=== PATIENT | female | born 1950 | race Two or more races ===

== ENCOUNTER 2024-03-01 00:05 | Inpatient (IN) | payer MEDICARE, MEDICAID, BC ==
[2024-03-01] VITALS (11 sets, daily range): BP systolic 102–141; BP diastolic 33–57; PULSE 80–144; RESP 20; O2SAT 98–100
[~2024-03-01] VITALS: Ht 154.9 cm; Wt 89.4 kg
[~2024-03-01 00:05] MED LIST: AMLO1TAB22 PO; APIX2.5T PO; ATOR20TA PO; INSUINJ37 SC; PANT40T PO; SEVE800T20 PO
[2024-03-01] MEDS ORDERED: ETOMIDATE (2MG/ML) 20ML VIAL IV ONE (00:12)
[2024-03-01] MEDS ORDERED: ROCURONIUM 10MG/ML 10ML VIAL IV ONE (00:12)
[2024-03-01] MEDS ORDERED: PROPOFOL 100 ML IV ONE (00:14)
[2024-03-01] MEDS: ROCURONIUM 10MG/ML 10ML VIAL IV ONE (00:17)
[2024-03-01] MEDS: PROPOFOL 100 ML IV SCH (00:23)
[2024-03-01] MEDS: NOREPINEPHRINE 8 MG/250ML KIT 250 ML IV SCH (00:23)
[2024-03-01] MEDS ORDERED: MIDAZOLAM DRIP 50 mg/50mL 50 ML IV SCH (00:30)
[2024-03-01] MEDS: fentaNYL Drip 2500mCg/250mlNS 250 ML IV SCH (00:30)
--- NOTE | 2024-03-01 00:31 | ED.PDOC ---
SOB-HPI HPI Comments 74 year old female brought in by EMS presents to the ED with a chief complaint of shortness of breath onset yesterday around 08:00. Per EMS, patient lives with daughter, began experiencing nausea, vomiting, diarrhea, shortness of breath since yesterday. Upon EMS arrival, HR was in low 40s, GCS x 15. EMS gave patient Atropine and HR went to 75-80 bpm. EMS states patient became disassociated, altered in route, HR dropped to 20s and was being paced in the 60s, patient was being bagged. Upon ED arrival patient was altered and unresponsive. Past medical history of ESRD, DM, HTN, HLD. Time Seen by MD: 00:05 Reviewed notes: Medications, Allergies Information Source: Emergency Med Personnel Mode of Arrival: EMS Severity: Moderate Timing: Days Duration: Since onset Prehospital treatment: Oxygen Past Medical History PAST MEDICAL HISTORY: DM, ESRD, High Lipids, HTN Surgical History: Unknown PATHOLOGY LABORATORY TECHNOLOGIST History: Denies all PATHOLOGY LABORATORY TECHNOLOGIST Hx Family History Family History: Unknown Social History Smoker: Non-Smoker Alcohol: Denies ETOH Use Drugs: Denies Drug Use Lives In: Home Constitutional: reports: weakness; denies: chills, diaphoresis, fatigue, fever, malaise, sweats, others EENTM: denies: blurred vision, double vision, ear bleeding, ear discharge, ear drainage, ear pain, ear ringing, eye pain, eye redness, hearing loss, mouth pain, mouth swelling, nasal discharge, nose bleeding, nose congestion, nose pain, photophobia, tearing, throat pain, throat swelling, voice changes, others Respiratory: reports: shortness of breath; denies: cough, hemoptysis, orthopnea, SOB at rest, SOB with excertion, stridor, wheezing, others Cardiovascular: denies: chest pain, dizzy spells, diaphoresis, Dyspnea on exertion, edema, irregular heart beat, left arm pain, lightheadedness, palpitations, PND, syncope, others Gastrointestinal: reports: diarrhea, nausea, vomiting; denies: abdomen distended, abdominal pain, blood streaked bowels, constipated, dysphagia, difficulty swallowing, hematemesis, melena, poor appetite, poor fluid intake, rectal bleeding, rectal pain, others Genitourinary: denies: abnormal vagina bleeding, burning, dyspareunia, dysuria, flank pain, frequency, hematuria, incontinence, pain, , vagina discharge, urgency, others Neurological: denies: dizziness, fainting, headache, left sided numbness, left sided weakness, numbness, paresthesia, pre-existing deficit, right sided numbness, right sided weakness, seizure, speech problems, tingling, tremors, weakness, others Musculoskeletal: denies: back pain, gout, joint pain, joint swelling, muscle pain, muscle stiffness, neck pain, others Integumetry: denies: bruises, change in color, change in hair/nails, dryness, laceration, lesions, lumps, rash, wounds, others Allergic/Immunocompromised: denies: Difficulty Healing, Frequent Infections, Hives, Itching, others Hematologic/Lymphatic: denies: anemia, blood clots, easy bleeding, easy bruising, swollen glands, others Endocrine: denies: excessive hunger, excessive sweating, excessive thirst, excessive urination, flushing, intolerance to cold, intolerance to heat, unexplained weight gain, unexplained weight loss, others Psychiatric: denies: anxiety, bipolar disorder, depression, hopeless, panic disorder, schizophrenia, sleepless, suicidal, others All Other Systems: Reviewed and Negative Physical Exam General Appearance: Severe Distress HEENT: Normal ENT Inspection, Pharynx Normal, TMs Normal Neck: Full Range of Motion, Non-Tender, Normal, Normal Inspection Respiratory: Decreased Breath Sounds, Respiratory Distress Cardiovascular: No Edema, No JVD, No Murmur, No Gallop, Normal Peripheral Pulses, Regular Rate/Rhythm, Other (AV shunt left upper arm with good thrill) Breast Exam: Deferred Gastrointestinal: No Organomegaly, Non Tender, No Pulsatile Mass, Normal Bowel Sounds, Soft Genitalia: Deferred Pelvic: Deferred Rectal: Deferred Extremities: No calf tenderness, Normal capillary refill, Normal inspection, Normal range of motion, Non-tender, No pedal edema Musculoskeletal : Apperance: Normal Neurologic: Disoriented, Other (agitated, moving all extremities) Cerebellar Function: Normal Reflexes: Normal Skin: Dry, Normal Color, Warm Lymphatic: No Adenopathy Was a procedure done? Was a procedure done?: Yes Sedation Sedation?: Yes Informed consent obtained: No Sedation start time: 00:17 Sedation end time: 03:16 Sedation total time: patient is currently sedated. 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 of liquefaction and regasification helper: Attending Physician Indication: Inability to obtain IV Room prepared for procedure: Yes Foot Piece Assembler performed hand hygien: Yes Maximal sterile barrier precau: Mask/Eye shield, Sterile gown, Cap, Sterlie gloves, Large sterlie drape Skin Preparation: Chlorhexidine gluconate, Providine iodine Skin preparation completely dr: Yes Insertion site: Right, Supraclavicular Central line catheter type: Ijl-[id number]-dyg dialysis Number of lumens: 3 Central line exchanged over a: No Post Assessment: Chest X-Ray Informed consent obtained: No Intubation Indication: Altered Mental Status Prep: Preoxygenation Pretreated with: Atropine Medicated with: Other (Etomidate 10 mg, Rocuronium 80 mg) Intubation Approach: Orotracheal Intubation size: cm (24) Informed consent obtained: No Differential Dx Differential Diagnosis: Asthma, Bronchitis, CHF, COPD, Pneumonia, Pneumothorax, Pulmonary Embolism, Respiratory Distress, Other X-Ray, Labs, Meds, VS Vital Signs Date Time Temp Pulse Resp B/P (MAP) Pulse Ox O2 Delivery O2 Flow Rate FiO2 03/01/24 01:54 112 20 154/43 (80) 98 50 03/01/24 00:21 56 03/01/24 00:20 42 18 122/76 (91) 98 100 03/01/24 00:17 122/31 03/01/24 00:05 96.4 72 18 122/31 (61) 99 Lab Test 03/01/24 03:05 03/01/24 02:40 03/01/24 01:49 03/01/24 01:40 Range/Units Blood Gas Specimen Type Arterial Arterial Blood Gas Sample Site Right radial Right brachial Blood Gas Patient Temperature 37.0 37.0 Arterial Blood Date Drawn [id number] Arterial Blood pH 7.132 *L 7.097 *L 7.350-7.450 Arterial Blood Partial Pressure CO2 42.5 45.4 H 32.0-45.0 mmHg Arterial Blood Partial Pressure O2 137.1 H 384.0 *H 83.0-108.0 mmHg Arterial Blood HCO3 13.9 L 13.7 L 21.0-28.0 mmol/L Arterial Blood Oxygen Saturation 97.8 99.6 H 94.0-98.0 % Arterial Blood Base Excess -14.8 L -15.8 L -2.0-3.0 mmol/L Arterial Blood Oxyhemoglobin 96.5 98.4 H 94.0-98.0 % Arterial Blood Carboxyhemoglobin 0.8 0.9 0.5-1.5 % Arterial Blood Methemoglobin 0.5 0.3 0.0-1.5 % Niraj Test Modified Modified Blood Gas Total Hemoglobin 15.30 15.50 12.0-16.0 g/dL Blood Gas Set Respiration Rate 20.0 18.0 Blood Gas Modality Vent - ac Vent - ac FiO2 % 50.0 100.0 Blood Gas Tidal Volume 400.0 400.0 Blood Gas PEEP or CPAP 5.0 5.0 Blood Gas Critical Value Read Back Yes Yes Blood Gas Notified Whom ke Lucio md, md Blood Gas Notified Time [id number] Blood Gas Notified By [employer] Supervisor t [employer] Matthew, amaya Lactic Acid Level 8.2 *H 0.4-2.0 mmol/L Troponin I High Sensitivity 2876 *H </=34 ng/L Test 03/01/24 00:25 Range/Units White Blood Count 5.3 4.4-10.8 10^3/uL Red Blood Count 4.06 4.0-5.20 10^6/uL Hemoglobin 12.7 12.2-16.2 g/dL Hematocrit 42.0 36.0-46.0 % Mean Corpuscular Volume 103.4 H 80.0-100.0 fL Mean Corpuscular Hemoglobin 31.3 28.0-32.0 pg Mean Corpuscular Hemoglobin Concent 30.3 L 32.0-36.0 g/dL Red Cell Distribution Width 16.1 H 11.8-14.3 % Platelet Count 75 L 140-450 10^3/uL Mean Platelet Volume 11.4 H 6.9-10.8 fL Neutrophils (%) (Auto) 79.0 37.0-80.0 % Lymphocytes (%) (Auto) 14.1 10.0-50.0 % Monocytes (%) (Auto) 5.7 0.0-12.0 % Eosinophils (%) (Auto) 0.3 0.0-7.0 % Basophils (%) (Auto) 0.9 0.0-2.0 % Neutrophils # (Auto) 4.2 1.6-8.6 10 ^3/uL Lymphocytes # (Auto) 0.7 0.4-5.4 10 ^3/uL Monocytes # (Auto) 0.3 0-1.3 10 ^3/uL Eosinophils # (Auto) 0 0-0.8 10 ^3/uL Basophils # (Auto) 0 0-0.2 10 ^3/uL Nucleated Red Blood Cells 0.3 % Prothrombin Time 16.1 H 9.3-11.8 sec Prothrombin Time INR 1.57 H 0.9-1.15 Sodium Level 139 136-145 mmol/L Potassium Level 4.6 3.5-5.1 mmol/L Chloride Level 103 98-107 mmol/L Carbon Dioxide Level 20 20-31 mmol/L Anion Gap 16 H 5-15 Blood Urea Nitrogen 52 H 9-23 mg/dL Creatinine 6.64 H 0.550-1.02 mg/dL Glomerular Filtration Rate Calc 6 >90 mL/min BUN/Creatinine Ratio 7.8 L 10.0-20.0 Serum Glucose 133 H 74-106 mg/dL Lactic Acid Level 6.8 *H 0.4-2.0 mmol/L Calcium Level 8.8 8.7-10.4 mg/dL Total Bilirubin 0.7 0.2-1.0 mg/dL Aspartate Amino Transferase (AST) 221 H 13-40 U/L Alanine Aminotransferase (ALT) 98 H 7-40 U/L Alkaline Phosphatase 195 H 46-116 U/L Troponin I High Sensitivity 2335 *H </=34 ng/L B-Type Natriuretic Peptide 1404.90 0-100 pg/mL Total Protein 6.2 5.7-8.2 g/dL Albumin 3.6 3.2-4.8 g/dL Current Medications Medications (Trade) Dose Ordered Sig/Ariela Route Start Time Stop Time Status Last Admin Etomidate 10 mg ONCE ONCE IV 03/01/24 00:45 03/01/24 00:46 DC 03/01/24 00:46 Rocuronium [place] 80 mg ONCE ONCE IV 03/01/24 00:45 03/01/24 00:46 DC 03/01/24 00:17 Piperacillin Sod/ Tazobactam Sod 100 ml @ 100 mls/hr ONCE ONCE IV 03/01/24 02:45 03/01/24 03:44 03/01/24 03:05 [facility] [id number] [facility] [address] Ph: [phone] DIAGNOSTIC IMAGING Diagnostic Imaging Report : [id number] Signed PATIENT: JESE JACK ACCT: [id number] UNIT: [id number] : 1950 LOC: ER ROOM / BED: / AGE / SEX: 74 / F ADM STATUS: REG ER SERVICE ORDERING PHYSICIAN: YANA CHRISTINA MD PROCEDURE(s): CXR1 - CHEST XRAY 1 VIEW REASON: Post Intubation ETT/OG placement ORDER NUMBER(s): [id number], ACCESSION NUMBER(s): [id number] EXAM: XY CHEST XRAY 1 VIEW CLINICAL HISTORY: Post Intubation ETT/OG placement TECHNIQUE: Single AP view of the chest WID: COMPARISON: None FINDINGS: Lines and tubes: Endotracheal tube projects 2.2 cm above the sia. Gastric tube descends beneath the level the diaphragm into the stomach beyond the field of view. There is defibrillator pad projecting over the left chest and left upper quadrant. Chest: Mild cardiomegaly without significant pulmonary vascular congestion at this time. Calcified plaque projects over the aortic arch. No pleural effusion, pneumothorax, or consolidation. Interstitial prominence in the lungs. The osseous structures are grossly intact. IMPRESSION: 1. Endotracheal tube, orogastric tube placement as described. 2. Mild cardiomegaly. 3. Interstitial prominence in the lungs. This could reflect interstitial edema, scarring / fibrosis, or atypical infection. ATED BY: MYLENE NGUYEN MD DICTATED DATE/TIME: 03/01/24128 SIGNED BY: MYLENE NGUYEN MD SIGNED DATE/TIME: 03/01/24128 CC: Time of 1ST Reevaluation: 00:35 Reevaluation 1ST: Unchanged Time of 2ND Reevaluation: 03:13 Reevaluation 2ND: Unchanged Patient Education/Counseling: Other (patient is altered) Family Education/Counseling: No Family Present Additional Information I reviewed the following notes from patient's past medical encounters: The following tests were ordered, and results were reviewed by me: UA, XY CHEST 1 VIEW, EKG, RESPIRATORY CULTURE W/ GS Additional Information was gathered from interviewing the following independent historians: EMS I reviewed and agreed with the following test results read by other providers: XY CHEST 1 VIEW I discussed treatment and results with medical personnel and: patient Departure 1 Departure Time of Disposition: 03:13 Impression: Primary Impression: Aspiration pneumonia Additional Impressions: Nausea vomiting and diarrhea Chronic kidney disease with end stage renal failure on dialysis Disposition: ADMITTED INPATIENT Admit to: ICU Condition: Critical Critical Care Note Critical Care Time?: Yes (35 min-critical care time only) Critical care comment: Total critical care time: Approximately 36 minutes Due to a high probability of clinically significant, life threatening deterioration, the patient required my highest level of preparedness to intervene emergently and I personally spent this critical care time directly and personally managing the patient. This critical care time included obtaining a history; examining the patient; pulse oximetry; ordering and review of studies; arranging urgent treatment with development of a management plan; evaluation of patient's response to treatment; frequent reassessment; and, discussions with other providers. This critical care time was performed to assess and manage the high probability of imminent, life-threatening deterioration that could result in multi-organ failure. It was exclusive of separately billable procedures and treating other patients. Stability Stability form required: No Heart Score Heart Score: Heart Score Response (Comments) Value History Moderate Suspicious 1 EKG Repolarization Disturb 1 Age >65 2 Risk Factors 1 or 2 risk factors 1 Troponin >3 x's Normal limit 2 Total 7 I personally scribed for YANA CHRISTINA MD ([email or web address]) on 03/01/24 at 00:31. Electronically submitted by Mansi Soto ([email or web address]). I personally scribed for YANA CHRISTINA MD ([email or web address]) on 03/01/24 at 01:34. Electronically submitted by Mansi Soto ([email or web address]). I personally scribed for YANA CHRISTINA MD ([email or web address]) on 03/01/24 at 01:35. Electronically submitted by Mansi Soto ([email or web address]). I personally scribed for YANA CHRISTINA MD ([email or web address]) on 03/01/24 at 01:37. Electronically submitted by Mansi Soto ([email or web address]). I personally scribed for YANA CHRISTINA MD ([email or web address]) on 03/01/24 at 01:47. Electronically submitted by Mansi Soto ([email or web address]). YANA CHRISTINA MD Mar 01, 2024 00:31
[2024-03-01] MEDS: ETOMIDATE (2MG/ML) 20ML VIAL IV ONE (00:46)
[2024-03-01] MEDS: NOREPINEPHRINE 8 MG/250ML KIT 250 ML IV ONE (01:00)
--- NOTE | 2024-03-01 01:31 | DVH ---
EXAM: XY CHEST XRAY 1 VIEW CLINICAL HISTORY: Post Intubation ETT/OG placement TECHNIQUE: Single AP view of the chest WID: COMPARISON: None FINDINGS: Lines and tubes: Endotracheal tube projects 2.2 cm above the sia. Gastric tube descends beneath th e level the diaphragm into the stomach beyond the field of view. There is defibrillator pad projectin g over the left chest and left upper quadrant. Chest: Mild cardiomegaly without significant pulmonary vascular congestion at this time. Calcified plaque p rojects over the aortic arch. No pleural effusion, pneumothorax, or consolidation. Interstitial prominence in the lungs. The osseous structures are grossly intact. IMPRESSION: 1. Endotracheal tube, orogastric tube placement as described. 2. Mild cardiomegaly. 3. Interstitial prominence in the lungs. This could reflect interstitial edema, scarring / fibrosis, or atypical infection.
[2024-03-01 01:49] LABS: Base Excess -15.8 mmol/L (-2.0-3.0)
[2024-03-01 02:03] LABS: Basophils # (auto) 0 10 ^3/uL (0-0.2); Basophils % (auto) 0.9 % (0.0-2.0); Eosinophils # (auto) 0 10 ^3/uL (0-0.8); Eosinophils % (auto) 0.3 % (0.0-7.0); Hemoglobin 12.7 g/dL (12.2-16.2); Lymphocytes # (auto) 0.7 10 ^3/uL (0.4-5.4); Lymphocytes % (auto) 14.1 % (10.0-50.0); Mean Corpuscular Hemoglobin 31.3 pg (28.0-32.0); Mean Corpuscular Hgb Conc. 30.3 g/dL (32.0-36.0); Mean Corpuscular Volume 103.4 fL (80.0-100.0); Monocytes # (auto) 0.3 10 ^3/uL (0-1.3); Monocytes % (auto) 5.7 % (0.0-12.0); Neutrophils # (auto) 4.2 10 ^3/uL (1.6-8.6); Nucleated Red Blood Cells % 0.3 %; Platelet Count (auto) 75 10^3/uL (140-450); Red Blood Cells 4.06 10^6/uL (4.0-5.20); Red Cell Distribution Width 16.1 % (11.8-14.3); White Blood Cell 5.3 10^3/uL (4.4-10.8)
[2024-03-01 02:22] LABS: Anion Gap 16 (5-15); BUN/Creatinine Ratio 7.8 (10.0-20.0); Calcium 8.8 mg/dL (8.7-10.4); Chloride 103 mmol/L (98-107); Potassium 4.6 mmol/L (3.5-5.1); Sodium 139 mmol/L (136-145)
[2024-03-01 02:23] LABS: Albumin 3.6 g/dL (3.2-4.8); Bilirubin, Total 0.7 mg/dL (0.2-1.0); Total Protein 6.2 g/dL (5.7-8.2)
[2024-03-01 02:27] LABS: INR 1.57 (0.9-1.15); Prothrombin Time 16.1 sec (9.3-11.8)
[2024-03-01 02:28] LABS: Alanine Aminotransferase 98 U/L (7-40); Alkaline Phosphatase 195 U/L (46-116); Aspartate Aminotransferase 221 U/L (13-40); Blood Urea Nitrogen 52 mg/dL (9-23); Carbon Dioxide 20 mmol/L (20-31); Glucose 133 mg/dL (74-106)
[2024-03-01 02:34] LABS: Lactic Acid w/Reflex 6.8 mmol/L (0.4-2.0)
[2024-03-01] MEDS: PIPERACILLIN-TAZOB 3.375GM 100 ML IV ONE (03:05)
[2024-03-01 03:10] LABS: Base Excess -14.8 mmol/L (-2.0-3.0)
--- NOTE | 2024-03-01 04:06 | DVH ---
Examination: CXRP Clinical Indication: central line placement Comparison: None. Technique: Frontal radiograph of the chest was obtained. Findings: Diffuse bilateral perihilar and peribronchovascular infiltrates. No evidence of pneumothorax Left CP angle is blunted, could be suggestive of effusion/consolidation. Right CP angle is clear. Cardiomegaly. Endotracheal tube is noted with the tip just proximal to the sia. Central line is noted with tip in the superior vena cava/atriocaval junction. Chest leads noted. No acute osseous abnormality is seen. Impression: 1. Diffuse bilateral perihilar and peribronchovascular infiltrates. 2. Left CP angle is blunted, could be suggestive of effusion/consolidation. 3. Cardiomegaly. 4. No acute osseous abnormality is seen. 5. Clinical laboratory correlation and comparison with previous imaging is suggested. Electronically Signed 03/01/2024 04:05 Ross Faulkner
[2024-03-01] MEDS: MIDAZOLAM DRIP 50 mg/50mL 50 ML IV SCH (06:05)
[2024-03-01 06:07] LABS: Rapid Influenza A Positive (Negative); Rapid Influenza B Negative (Negative)
--- NOTE | 2024-03-01 07:52 | DVHHP2 ---
History of Present Illness Reason for Visit: Shortness of breath History of Present Illness This 74-year-old female with past medical history of hypertension, diabetes, ESRD, hyperlipidemia, presents in the ED via EMS with a chief complaint of shortness of breath. The patient is currently sedated and intubated. Medical history obtained from medical records and RN. The patient apparently was having shortness of breath associated with nausea, vomiting, and diarrhea since yesterday. According to EMR the patient heart rate was in 40s alert and oriented at that time, when patient arrived in the emergency department, heart rate dropped into 20s causing ALOC and they started bagging the patient. The patient is then orally intubated. Past Medical History As stated in HPI Past Surgical History Unknown Family History Unknown Past Social History Unknown Review of Systems Review of Systems ROS see HPI Allergies: Coded Allergies: NO KNOWN ALLERGIES (Unverified , 03/01/24) Medications Current Medications Medications Dose Ordered Sig/Ariela Route Start Time Stop Time Status Last Admin Dose Admin Propofol 100 ml @ 3 mls/hr Q24H IV 03/01/24 00:30 03/01/24 00:23 3 MLS/HR Fentanyl Citrate 250 ml @ 2.5 mls/hr Q24H IV 03/01/24 00:30 03/01/24 05:24 2.5 MLS/HR Norepinephrine Bitartrate 250 ml @ 3.75 mls/hr Q24H IV 03/01/24 00:35 03/01/24 06:05 52.5 MLS/HR Midazolam HCl 50 ml @ 1 mls/hr Q24H IV 03/01/24 06:00 03/01/24 06:05 1 MLS/HR Exam Vital Signs Vital Signs Date Time Temp Pulse Resp B/P (MAP) Pulse Ox O2 Delivery O2 Flow Rate FiO2 03/01/24 07:05 147/53 03/01/24 07:00 84 20 98 03/01/24 06:15 30 03/01/24 00:15 96.4 96.4 HEENT: Atraumatic, PERRLA, Mucous membr. moist/pink Respiratory: Clear to auscultation, Normal air movement, Other (intubated) Cardiovascular: Regular rate, Normal S1, Normal S2, Other (Hypotensive) Abdominal: Normal bowel sounds, Soft, No tenderness Extremities: No clubbing, No cyanosis, No edema, Normal pulses, No tenderness/swelling Skin: No rashes, No breakdown, No significant lesion Neuro: Other (Sedated) Labs/Xrays Labs Test 03/01/24 05:00 03/01/24 03:30 03/01/24 03:05 03/01/24 02:40 Range/Units Influenza Type A Antigen Positive Negative Influenza Type B Antigen Negative Negative Troponin I High Sensitivity 3257 *H </=34 ng/L Blood Gas Specimen Type Arterial Blood Gas Sample Site Right radial Blood Gas Patient Temperature 37.0 Arterial Blood Date Drawn [id number] Arterial Blood pH 7.132 *L 7.350-7.450 Arterial Blood Partial Pressure CO2 42.5 32.0-45.0 mmHg Arterial Blood Partial Pressure O2 137.1 H 83.0-108.0 mmHg Arterial Blood HCO3 13.9 L 21.0-28.0 mmol/L Arterial Blood Oxygen Saturation 97.8 94.0-98.0 % Arterial Blood Base Excess -14.8 L -2.0-3.0 mmol/L Arterial Blood Oxyhemoglobin 96.5 94.0-98.0 % Arterial Blood Carboxyhemoglobin 0.8 0.5-1.5 % Arterial Blood Methemoglobin 0.5 0.0-1.5 % Niraj Test Modified Blood Gas Total Hemoglobin 15.30 12.0-16.0 g/dL Blood Gas Set Respiration Rate 20.0 Blood Gas Modality Vent - ac FiO2 % 50.0 Blood Gas Tidal Volume 400.0 Blood Gas PEEP or CPAP 5.0 Blood Gas Critical Value Read Back Yes Blood Gas Notified Whom Thai carnes md Blood Gas Notified Time [id number] Blood Gas Notified By Zach bwoie Lactic Acid Level 8.2 *H 0.4-2.0 mmol/L Test 03/01/24 00:25 Range/Units White Blood Count 5.3 4.4-10.8 10^3/uL Red Blood Count 4.06 4.0-5.20 10^6/uL Hemoglobin 12.7 12.2-16.2 g/dL Hematocrit 42.0 36.0-46.0 % Mean Corpuscular Volume 103.4 H 80.0-100.0 fL Mean Corpuscular Hemoglobin 31.3 28.0-32.0 pg Mean Corpuscular Hemoglobin Concent 30.3 L 32.0-36.0 g/dL Red Cell Distribution Width 16.1 H 11.8-14.3 % Platelet Count 75 L 140-450 10^3/uL Mean Platelet Volume 11.4 H 6.9-10.8 fL Neutrophils (%) (Auto) 79.0 37.0-80.0 % Lymphocytes (%) (Auto) 14.1 10.0-50.0 % Monocytes (%) (Auto) 5.7 0.0-12.0 % Eosinophils (%) (Auto) 0.3 0.0-7.0 % Basophils (%) (Auto) 0.9 0.0-2.0 % Neutrophils # (Auto) 4.2 1.6-8.6 10 ^3/uL Lymphocytes # (Auto) 0.7 0.4-5.4 10 ^3/uL Monocytes # (Auto) 0.3 0-1.3 10 ^3/uL Eosinophils # (Auto) 0 0-0.8 10 ^3/uL Basophils # (Auto) 0 0-0.2 10 ^3/uL Nucleated Red Blood Cells 0.3 % Prothrombin Time 16.1 H 9.3-11.8 sec Prothrombin Time INR 1.57 H 0.9-1.15 Sodium Level 139 136-145 mmol/L Potassium Level 4.6 3.5-5.1 mmol/L Chloride Level 103 98-107 mmol/L Carbon Dioxide Level 20 20-31 mmol/L Anion Gap 16 H 5-15 Blood Urea Nitrogen 52 H 9-23 mg/dL Creatinine 6.64 H 0.550-1.02 mg/dL Glomerular Filtration Rate Calc 6 >90 mL/min BUN/Creatinine Ratio 7.8 L 10.0-20.0 Serum Glucose 133 H 74-106 mg/dL Calcium Level 8.8 8.7-10.4 mg/dL Total Bilirubin 0.7 0.2-1.0 mg/dL Aspartate Amino Transferase (AST) 221 H 13-40 U/L Alanine Aminotransferase (ALT) 98 H 7-40 U/L Alkaline Phosphatase 195 H 46-116 U/L B-Type Natriuretic Peptide 1404.90 0-100 pg/mL Total Protein 6.2 5.7-8.2 g/dL Albumin 3.6 3.2-4.8 g/dL PROCEDURE(s): CXRP - CHEST PORTABLE REASON: central line placement ORDER NUMBER(s): [id number], ACCESSION NUMBER(s): [id number] ADDENDUM Addendum - Date: 03/01/2024 4:19:15 AM Central line is noted with tip in the superior vena cava/atriocaval junction. Examination: CXRP Clinical Indication: central line placement Comparison: None. Technique: Frontal radiograph of the chest was obtained. Findings: Diffuse bilateral perihilar and peribronchovascular infiltrates. No evidence of pneumothorax Left CP angle is blunted, could be suggestive of effusion/consolidation. Right CP angle is clear. Cardiomegaly. Endotracheal tube is noted with the tip just proximal to the sia. Central line is noted with tip in the superior vena cava/atriocaval junction. Chest leads noted. No acute osseous abnormality is seen. Impression: 1. Diffuse bilateral perihilar and peribronchovascular infiltrates. 2. Left CP angle is blunted, could be suggestive of effusion/consolidation. 3. Cardiomegaly. 4. No acute osseous abnormality is seen. Assessment/Plan Assessment/Plan # acute respiratory failure # possible aspiration pneumonia # positive influenza a # Rule out PE Admit ICU Orally intubated--Vent settings to keep FI02 O2 Sat >92% Two amps bicarb--repeat ABG at noon Chest x-ray in a.m. Empiric antibiotic Chano Q 24h Blood, sputum culture V/Q scan # acute metabolic encephalopathy # ALOC CT head pending Check UDS Monitor # rule out Sepsis # lactic acidosis Prince cultures IV antibiotics # NSTEMI # rule out ACS # acute transient AFib with RVR, now in sinus rhythm Cardiology consult Echocardiogram Chads Vasc Score 4 --- anti coag pending CT head Heparin drip per ACS protocol - if negative CT head Start on asa and possible beta ayleen if heart rate allows Statins Given magnesium IV Monitor electrolytes and replace as needed Continue to trend troponin Monitor EKG # ESRD on HD Nephrology consult F/C # hypertension, currently hypotensive Titrate levophed gtt to keep SPB >90mmHg # hyperlipidemia Statins Check lipid panel # diabetes type 2 ISS NPO Check A1c # morbid obesity Lifestyle modification DVT prophylaxis Medical plan discussed with RN Plan discussed with: Patient, Other (RN) Date of Service: Mar 01, 2024 Billing Provider: JATIN PETERSEN Common Visit Codes: [id number] INP/OBS CARE (HIGH) JATIN PETERSEN Mar 01, 2024 07:52
[2024-03-01] MEDS ORDERED: MAGNESIUM SULFATE 1GM/100ML 100 ML IV SCH (08:00)
[2024-03-01] MEDS ORDERED: MORPHINE SULFATE INJ 2 MG/ml SYRG IV PRN (08:00)
[2024-03-01] MEDS ORDERED: NITROGLYCERIN 0.4 MG SL TAB SL PRN (08:00)
[2024-03-01 08:39] LABS: Base Excess -9.9 mmol/L (-2.0-3.0)
[2024-03-01] MEDS: SODIUM BICARB 8.4% 50Meq/50ml SYR Vial IV ONE (08:52)
--- NOTE | 2024-03-01 10:01 | DVH ---
EXAM: CT HEAD WITHOUT CONTRAST INDICATION: ALOC TECHNIQUE: CT of the head without intravenous contrast. Coronal and sagittal reformatted images are submitted. Radiation Dose : 1. Head: CT Dose: CTDI volume is 60.67 mGy. Dose-length product is 1074.14 mGy*cm The dose indicators for CT are the volume Computed Tomography (CT) Dose Index (CTDIvol) and the Dose Length Product (DLP), and are measured in units of mGy and mGy-cm, respectively. These indicators are not patient dose, but values generated from the CT scanner acquisition factors. The report includes radiation exposure data for exposures received during this examination. All CT scans at this medical facility are performed using dose modulation techniques as appropriate to a performed exam including the following: Automated exposure control was utilized; adjustment of the MA and/or KV according to patient size; and use of iterative reconstruction technique. COMPARISON: None FINDINGS: There is no evidence of acute intracranial hemorrhage, extra-axial collection, mass effect, midline s hift, herniation or hydrocephalus. The ventricles, sulci and cisterns are age appropriate. The cardona-white differentiation is intact. The visualized paranasal sinuses and mastoid air cells are clear. No depressed calvarial fracture. The surrounding soft tissues are unremarkable. IMPRESSION: 1. No evidence of acute intracranial abnormality.
[2024-03-01 11:00] LABS: Triglycerides 171 mg/dL (< 150)
[2024-03-01 11:01] LABS: LDL Cholesterol 46 mg/dL (< 100)
[2024-03-01 11:02] LABS: Cholesterol 130 mg/dL (< 200); HDL Cholesterol 51 mg/dL (40-59)
--- NOTE | 2024-03-01 11:10 | DVHINCON2 ---
Date Seen: Mar 01, 2024 Referring Physician YANCY Helm Reason for Consultation NSTEMI History of Present Illness This is a 74-year-old female patient who presents to the emergency room with chief complaint of shortness of breath, nausea, vomiting, and diarrhea. At the time of assessment, the patient is chemically sedated and mechanically ventilated. No family members at bedside or listed in chart. History obtained from bedside RN and medical records. Per ER physician documentation, when EMS arrived to the patient's home, the patient's heart rate was noted to be in the low 40s. Apparently the patient was given atropine en route to the hospital. She also became altered and subsequently unresponsive. The patient was urgently intubated in the emergency room. Unable to verify bradycardic episode as reported by EMS as there is no cardiac strips to confirm this. Cardiology has been consulted for elevated troponin level. Initial twelve lead electrocardiogram reveals atrial fibrillation with right bundle branch block and prolonged QTc interval. Initial troponin level of 2335ng/L with up trend thereafter. Significant past medical history includes atrial fibrillation (on Eliquis), hypertension, hyperlipidemia, end-stage renal disease on hemodialysis, type 2 diabetes mellitus, and morbid obesity. Unable to obtain any further medical records at this time. Past Medical History Past medical history reviewed. No other significant than mentioned above. Past Surgical History Unable to obtain Family History Family history reviewed. Social History Unable to obtain at this time Allergies: Coded Allergies: NO KNOWN ALLERGIES (Unverified , 03/01/24) Home Meds Home medications reviewed. Current Medications Current Medications Medications (Trade) Dose Ordered Sig/Ariela Route PRN Reason Start Time Stop Time Status Last Admin Propofol 100 ml @ 3 mls/hr Q24H IV 03/01/24 00:30 03/01/24 00:23 Midazolam HCl 50 ml @ 1 mls/hr Q24H IV 03/01/24 00:30 03/01/24 00:32 DC Fentanyl Citrate 250 ml @ 2.5 mls/hr Q24H IV 03/01/24 00:30 03/01/24 05:24 Norepinephrine Bitartrate 250 ml @ 3.75 mls/hr Q24H IV 03/01/24 00:35 03/01/24 06:05 Midazolam HCl 50 ml @ 1 mls/hr Q24H IV 03/01/24 06:00 03/01/24 06:05 Nitroglycerin (Ntrostat Sublingual) 0.4 mg Q5MINP PRN SL FOR CHEST PAIN 03/01/24 08:00 Morphine Sulfate 2 mg Q30M PRN IV FOR CHEST PAIN 03/01/24 08:00 Atorvastatin Calcium (Lipitor) 40 mg HS PO 03/01/24 22:00 Meropenem 50 ml @ 17 mls/hr DAILY IV 03/01/24 08:00 UNV Diagnostic Test (Pha) (Accu-Chek Comfort Curve T) 1 strip Q6HR 03/01/24 12:00 Insulin Human Regular (InsuLIN R) Q6HR SC 03/01/24 12:00 Dextrose 50 ml UD PRN IV Blood Sugar LESS THAN 60 03/01/24 08:00 Magnesium Sulfate/ Dextrose 100 ml @ 100 mls/hr Q1H IV 03/01/24 08:00 03/01/24 09:59 UNV Review of Systems Constitutional: No symptom reported Ears, Nose, & Throat: No symptom reported Eyes: No symptom reported Neurological: No symptoms reported Pulmonary/Respiratory: Shortness of breath Cardiovascular: No symptom reported Gastrointestinal: Nausea, vomiting, diarrhea Genitourinary: No symptom reported Musculoskeletal: No symptom reported Skin: No symptom reported Psychiatric: No symptom reported Endocrine: No symptom reported Hematologic/Lymphatic: No symptom reported Vital Signs Vital Signs Date Time Temp Pulse Resp B/P (MAP) Pulse Ox O2 Delivery O2 Flow Rate FiO2 03/01/24 10:19 85 20 141/55 100 30 03/01/24 08:41 Mechanical Ventilator+ 03/01/24 00:15 96.4 96.4 Physical Exam General Appearance: Calm, relaxed, morbidly obese Pulmonary/Respiratory: Mechanically ventilated, coarse lung sounds throughout Cardiovascular/Chest: Regular rate and rhythm. Peripheral Pulses: 2+ Radial (R). 2+ Radial (L). 2+ Pedal (R). 2+ Pedal (L) Abdominal Exam: Normal bowel sounds. Ankle Exam: Negative ankle edema Lower extremities: Negative lower extremity edema Neuro/Mental Status: Chemically sedated Thoughts/Psych: Deferred Appearance: No acute distress. Skin Exam: Normal inspection. Normal color. Warm and dry. Labs/Diagnostic Data Labs Test 03/01/24 08:28 03/01/24 05:00 03/01/24 03:30 03/01/24 02:40 Range/Units Blood Gas Specimen Type Arterial Blood Gas Sample Site Right radial Blood Gas Patient Temperature 37.0 Arterial Blood Date Drawn [id number] Arterial Blood pH 7.238 *L 7.350-7.450 Arterial Blood Partial Pressure CO2 40.8 32.0-45.0 mmHg Arterial Blood Partial Pressure O2 81.3 L 83.0-108.0 mmHg Arterial Blood HCO3 17.0 L 21.0-28.0 mmol/L Arterial Blood Oxygen Saturation 94.5 94.0-98.0 % Arterial Blood Base Excess -9.9 L -2.0-3.0 mmol/L Arterial Blood Oxyhemoglobin 93.0 L 94.0-98.0 % Arterial Blood Carboxyhemoglobin 1.4 0.5-1.5 % Arterial Blood Methemoglobin 0.2 0.0-1.5 % Niraj Test Modified Blood Gas Total Hemoglobin 15.00 12.0-16.0 g/dL Blood Gas Set Respiration Rate 20.0 Blood Gas Modality Vent - ac FiO2 % 30.0 Blood Gas Tidal Volume 400.0 Blood Gas PEEP or CPAP 5.0 Blood Gas Critical Value Read Back Yes Blood Gas Notified Whom Elidia epperson. Blood Gas Notified Time [id number] Blood Gas Notified By Juan Diego conde Influenza Type A Antigen Positive Negative Influenza Type B Antigen Negative Negative Hemoglobin A1c 6.8 H <5.7 % A1C Troponin I High Sensitivity 3257 *H </=34 ng/L Triglycerides Level 171 H < 150 mg/dL Cholesterol Level 130 < 200 mg/dL LDL Cholesterol 46 < 100 mg/dL HDL Cholesterol 51 40-59 mg/dL Thyroid Stimulating Hormone (TSH) 11.07 H 0.55-4.78 uIU/mL Lactic Acid Level 8.2 *H 0.4-2.0 mmol/L Test 03/01/24 00:25 Range/Units White Blood Count 5.3 4.4-10.8 10^3/uL Red Blood Count 4.06 4.0-5.20 10^6/uL Hemoglobin 12.7 12.2-16.2 g/dL Hematocrit 42.0 36.0-46.0 % Mean Corpuscular Volume 103.4 H 80.0-100.0 fL Mean Corpuscular Hemoglobin 31.3 28.0-32.0 pg Mean Corpuscular Hemoglobin Concent 30.3 L 32.0-36.0 g/dL Red Cell Distribution Width 16.1 H 11.8-14.3 % Platelet Count 75 L 140-450 10^3/uL Mean Platelet Volume 11.4 H 6.9-10.8 fL Neutrophils (%) (Auto) 79.0 37.0-80.0 % Lymphocytes (%) (Auto) 14.1 10.0-50.0 % Monocytes (%) (Auto) 5.7 0.0-12.0 % Eosinophils (%) (Auto) 0.3 0.0-7.0 % Basophils (%) (Auto) 0.9 0.0-2.0 % Neutrophils # (Auto) 4.2 1.6-8.6 10 ^3/uL Lymphocytes # (Auto) 0.7 0.4-5.4 10 ^3/uL Monocytes # (Auto) 0.3 0-1.3 10 ^3/uL Eosinophils # (Auto) 0 0-0.8 10 ^3/uL Basophils # (Auto) 0 0-0.2 10 ^3/uL Nucleated Red Blood Cells 0.3 % Prothrombin Time 16.1 H 9.3-11.8 sec Prothrombin Time INR 1.57 H 0.9-1.15 Sodium Level 139 136-145 mmol/L Potassium Level 4.6 3.5-5.1 mmol/L Chloride Level 103 98-107 mmol/L Carbon Dioxide Level 20 20-31 mmol/L Anion Gap 16 H 5-15 Blood Urea Nitrogen 52 H 9-23 mg/dL Creatinine 6.64 H 0.550-1.02 mg/dL Glomerular Filtration Rate Calc 6 >90 mL/min BUN/Creatinine Ratio 7.8 L 10.0-20.0 Serum Glucose 133 H 74-106 mg/dL Calcium Level 8.8 8.7-10.4 mg/dL Total Bilirubin 0.7 0.2-1.0 mg/dL Aspartate Amino Transferase (AST) 221 H 13-40 U/L Alanine Aminotransferase (ALT) 98 H 7-40 U/L Alkaline Phosphatase 195 H 46-116 U/L B-Type Natriuretic Peptide 1404.90 0-100 pg/mL Total Protein 6.2 5.7-8.2 g/dL Albumin 3.6 3.2-4.8 g/dL Assessment Septic shock Influenza A positive NSTEMI type II secondary to above Unspecified atrial fibrillation (on Eliquis) Rule out structural heart disease History of hypertension now with hypotension Hyperlipidemia Thrombocytopenia Transaminitis End-stage renal disease on hemodialysis Type 2 diabetes mellitus Morbid obesity Plan/Recommendation We will continue with the following plan/recommendations (Dr. Mcarthur): * Echocardiogram to evaluate cardiac function * ?[id number] VASc score: 4 points HAS-BLED score: 2 points * Hold anticoagulation given thrombocytopenia * Beta-ayleen when off of vasopressor therapy * Vasopressors for hemodynamic support * DVT/VTE prophylaxis: SCD's given thrombocytopenia Case discussed with . Thank you for allowing us to care for this patient. Please call with any questions or concerns. Critical care time spent: 44 minutes This medical document was created using an electronic medical record system with voice recognition software and computerized dictation system. Although this document has been carefully reviewed, there might still be some phonetic and typographical errors. Occasional wrong-word or ``sound-alike substitutions may have occurred due to the inherent limitations of voice recognition software. These areas are purely typographical due to imperfections of the software prog delma and do not reflect any compromise in the patient's medical care. Please read the chart carefully and recognize, using context, where these substitutions have occurred. Plan discussed with: Other (Bedside RN) Date of Service: Mar 01, 2024 Billing Provider: PILO BOWSER Cardiology Common Codes: [id number] INP/OBS CARE (High) Cardiology Consultation Codes: [id number] CONSULT <45MIN PILO BOWSER Mar 01, 2024 11:10
[2024-03-01] MEDS ORDERED: VANCOMYCIN PER PHARMACY 0 MG IV SCH (11:15)
--- NOTE | 2024-03-01 11:28 | DVHINCON2 ---
Date of service: Mar 01, 2024 Referring Physician KATHRYN Wright Reason for Consultation Mechanical ventilator management History of Present Illness A 74-year-old woman with past medical history of hypertension, diabetes, ESRD, and hyperlipidemia who presents to the ED today via EMS with a chief complaint of shortness of breath. The patient is currently sedated and intubated. Medical history obtained from medical records and RN. The patient apparently was having shortness of breath associated with nausea, vomiting, and diarrhea since yesterday. According to EMR, her heart rate was in 40s, was alert and oriented at that time; when patient arrived in the ED heart rate dropped into 20s causing ALOC and they started bagging the patient. The patient was then intubated and placed on mechanical vent, admitted for further care. Pulmonary consultation is requested for evaluation and management due to the above findings. Review of Systems: 14-point review of systems negative unless otherwise noted above. Past Medical History: Hypertension, diabetes, ESRD, hyperlipidemia Past Surgical History: Unknown Medications: Reviewed. Allergies: No known drug allergies. Family History: No family history of premature CAD. No family history of lung disorders. Social History: Unknown. Allergies: Coded Allergies: NO KNOWN ALLERGIES (Unverified , 03/01/24) Home Meds Reported Medications Atorvastatin Calcium (Lipitor) 20 Mg Tab, 1 TAB PO DAILY for 30 Days, #30 03/02/24 Amlodipine Besylate (Amlodipine Besylate) 5 Mg Tab, 1 TAB PO DAILY for 30 Days, #30 03/02/24 Pantoprazole Sodium Sesquihydr (Pantoprazole Sodium) 40 Mg Tab, 1 TAB PO DAILY for 30 Days, #30 03/02/24 Sevelamer Hydrochloride (Sevelamer Hydrochloride) 800 Mg Tab, 2 TAB PO BID for 90 Days, #360 03/02/24 Apixaban Base (ELIQUIS) 2.5 Mg Tab, 1 TAB PO BID for 30 Days, #60 03/02/24 Insulin Glargine (Lantus Solostar) 100 Unit/Ml Inj, UNIT SC UD for 30 Days, #6 03/02/24 Current Medications Current Medications Medications (Trade) Dose Ordered Sig/Ariela Route PRN Reason Start Time Stop Time Status Last Admin Propofol 100 ml @ 3 mls/hr Q24H IV 03/01/24 00:30 03/01/24 00:23 Midazolam HCl 50 ml @ 1 mls/hr Q24H IV 03/01/24 00:30 03/01/24 00:32 DC Fentanyl Citrate 250 ml @ 2.5 mls/hr Q24H IV 03/01/24 00:30 03/01/24 05:24 Norepinephrine Bitartrate 250 ml @ 3.75 mls/hr Q24H IV 03/01/24 00:35 03/01/24 06:05 Midazolam HCl 50 ml @ 1 mls/hr Q24H IV 03/01/24 06:00 03/01/24 06:05 Nitroglycerin (Ntrostat Sublingual) 0.4 mg Q5MINP PRN SL FOR CHEST PAIN 03/01/24 08:00 Morphine Sulfate 2 mg Q30M PRN IV FOR CHEST PAIN 03/01/24 08:00 Atorvastatin Calcium (Lipitor) 40 mg HS PO 03/01/24 22:00 Meropenem 50 ml @ 17 mls/hr DAILY IV 03/01/24 08:00 UNV Diagnostic Test (Pha) (Accu-Chek Comfort Curve T) 1 strip Q6HR 03/01/24 12:00 Insulin Human Regular (InsuLIN R) Q6HR SC 03/01/24 12:00 Dextrose 50 ml UD PRN IV Blood Sugar LESS THAN 60 03/01/24 08:00 Magnesium Sulfate/ Dextrose 100 ml @ 100 mls/hr Q1H IV 03/01/24 08:00 03/01/24 09:59 UNV Vancomycin HCl 0 ml @ 0 mls/hr UD IV 03/01/24 11:15 UNV Piperacillin Sod/ Tazobactam Sod 100 ml @ 25 mls/hr Q12HR IV 03/01/24 22:00 UNV Vital Signs Vital Signs Date Time Temp Pulse Resp B/P (MAP) Pulse Ox O2 Delivery O2 Flow Rate FiO2 03/01/24 10:19 85 20 141/55 100 30 03/01/24 09:30 99.0 99.0 03/01/24 08:41 Mechanical Ventilator+ Physical Exam Gen.: Patient lying in bed in medical ICU. Sedated, intubated on mechanical ventilator. Head: Normocephalic, atraumatic. Eyes: PERRLA. Ears: Normal external anatomy. Throat: Endotracheal tube and orogastric tube in place. Neck: Supple, trachea midline. Chest: Transmitted breath sounds bilaterally. Decreased air entry bilaterally. No wheezing. Bibasilar crackles. Cardiovascular: Positive S1, positive S2. Regular rate and rhythm. Abdomen: Positive bowel sounds in all 4 quadrants. Soft, nontender, nondistended. : Gabriel in place. Normal external genitalia. Rectal: Deferred. Skin: Warm, dry. Intact. Extremities: 2+ radial pulses bilaterally. No lower extremity edema. Neuro: Sedated. Labs/Diagnostic Data Labs Test 03/01/24 08:28 03/01/24 05:00 03/01/24 03:30 03/01/24 02:40 Range/Units Blood Gas Specimen Type Arterial Blood Gas Sample Site Right radial Blood Gas Patient Temperature 37.0 Arterial Blood Date Drawn [id number] Arterial Blood pH 7.238 *L 7.350-7.450 Arterial Blood Partial Pressure CO2 40.8 32.0-45.0 mmHg Arterial Blood Partial Pressure O2 81.3 L 83.0-108.0 mmHg Arterial Blood HCO3 17.0 L 21.0-28.0 mmol/L Arterial Blood Oxygen Saturation 94.5 94.0-98.0 % Arterial Blood Base Excess -9.9 L -2.0-3.0 mmol/L Arterial Blood Oxyhemoglobin 93.0 L 94.0-98.0 % Arterial Blood Carboxyhemoglobin 1.4 0.5-1.5 % Arterial Blood Methemoglobin 0.2 0.0-1.5 % Niraj Test Modified Blood Gas Total Hemoglobin 15.00 12.0-16.0 g/dL Blood Gas Set Respiration Rate 20.0 Blood Gas Modality Vent - ac FiO2 % 30.0 Blood Gas Tidal Volume 400.0 Blood Gas PEEP or CPAP 5.0 Blood Gas Critical Value Read Back Yes Blood Gas Notified Whom Elidia epperson. Blood Gas Notified Time [id number] Blood Gas Notified By Juan Diego conde Influenza Type A Antigen Positive Negative Influenza Type B Antigen Negative Negative Hemoglobin A1c 6.8 H <5.7 % A1C Troponin I High Sensitivity 3257 *H </=34 ng/L Triglycerides Level 171 H < 150 mg/dL Cholesterol Level 130 < 200 mg/dL LDL Cholesterol 46 < 100 mg/dL HDL Cholesterol 51 40-59 mg/dL Thyroid Stimulating Hormone (TSH) 11.07 H 0.55-4.78 uIU/mL Lactic Acid Level 8.2 *H 0.4-2.0 mmol/L Test 03/01/24 00:25 Range/Units White Blood Count 5.3 4.4-10.8 10^3/uL Red Blood Count 4.06 4.0-5.20 10^6/uL Hemoglobin 12.7 12.2-16.2 g/dL Hematocrit 42.0 36.0-46.0 % Mean Corpuscular Volume 103.4 H 80.0-100.0 fL Mean Corpuscular Hemoglobin 31.3 28.0-32.0 pg Mean Corpuscular Hemoglobin Concent 30.3 L 32.0-36.0 g/dL Red Cell Distribution Width 16.1 H 11.8-14.3 % Platelet Count 75 L 140-450 10^3/uL Mean Platelet Volume 11.4 H 6.9-10.8 fL Neutrophils (%) (Auto) 79.0 37.0-80.0 % Lymphocytes (%) (Auto) 14.1 10.0-50.0 % Monocytes (%) (Auto) 5.7 0.0-12.0 % Eosinophils (%) (Auto) 0.3 0.0-7.0 % Basophils (%) (Auto) 0.9 0.0-2.0 % Neutrophils # (Auto) 4.2 1.6-8.6 10 ^3/uL Lymphocytes # (Auto) 0.7 0.4-5.4 10 ^3/uL Monocytes # (Auto) 0.3 0-1.3 10 ^3/uL Eosinophils # (Auto) 0 0-0.8 10 ^3/uL Basophils # (Auto) 0 0-0.2 10 ^3/uL Nucleated Red Blood Cells 0.3 % Prothrombin Time 16.1 H 9.3-11.8 sec Prothrombin Time INR 1.57 H 0.9-1.15 Sodium Level 139 136-145 mmol/L Potassium Level 4.6 3.5-5.1 mmol/L Chloride Level 103 98-107 mmol/L Carbon Dioxide Level 20 20-31 mmol/L Anion Gap 16 H 5-15 Blood Urea Nitrogen 52 H 9-23 mg/dL Creatinine 6.64 H 0.550-1.02 mg/dL Glomerular Filtration Rate Calc 6 >90 mL/min BUN/Creatinine Ratio 7.8 L 10.0-20.0 Serum Glucose 133 H 74-106 mg/dL Calcium Level 8.8 8.7-10.4 mg/dL Total Bilirubin 0.7 0.2-1.0 mg/dL Aspartate Amino Transferase (AST) 221 H 13-40 U/L Alanine Aminotransferase (ALT) 98 H 7-40 U/L Alkaline Phosphatase 195 H 46-116 U/L B-Type Natriuretic Peptide 1404.90 0-100 pg/mL Total Protein 6.2 5.7-8.2 g/dL Albumin 3.6 3.2-4.8 g/dL Assessment Impression: Acute hypoxic respiratory failure On mechanical ventilator Septic shock Influenza Type A Metabolic acidosis Morbid obesity BMI 41.9 Plan: s/p intubation, on mechanical ventilator Vent settings: AC mode with RR 20, VT 400, PEEP 5, FiO2 30% On Levophed 14 mcg/min for hemodynamic support Titrate to keep MAP above 65 mmHg On sedation with Prop, versed, fentanyl drip. Continue Tamiflu course. Continue antibiotics Accu-Cheks, ISS Monitor renal function Monitor electrolytes - supplement as necessary Monitor ins and outs GI/DVT prophylaxis Prognosis: Poor given patient's multiple co-morbidities. Condition: Critical Rest of plan per hospitalist and other consultants. A total of 35 minutes of critical care time was spent reviewing the patient record, examining the patient, making a diagnostic and therapeutic plan, discussing this plan with the medical personnel, following up on diagnostic studies and following the patient for clinical stability excluding any and all procedures. At least 50% of this time was spent in direct, [id number] contact. Thank you, KATHRYN Montero, for allowing me to participate in this patient's care. Further recommendations will depend on the patient's clinical course. Please do not hesitate to contact me if you have any questions or concerns. This medical document was created using an electronic medical record system with ByRead dictation system. Although these documentations are being carefully reviewed, there may still be some phonetic and typographical changes. The errors are purely typographical, due to imperfection on the software program, and do not reflect any compromise in the patient's medical care. Plan discussed with: Other (MAYA Rosario, RT) ANNETTE PAINTER MD Mar 01, 2024 11:28
[2024-03-01] MEDS: MEROPENEM 500MG PREMIX 50 ML IV SCH (11:39)
--- NOTE | 2024-03-01 11:42 | DVHPNRES ---
Progress Note Date Seen: Mar 01, 2024 Resident Creating Document: MARY KRUGER RESIDENT Medical Necessity Reason Pt with a Central, PICC or Fol: Yes The following are medically ne: Central Line, Gabriel Catheter Subjective Review of Systems pt seen and examined at bedside She is currently sedated and intubated, on mechanical ventilator ROS could not be done as patient is sedated and intubated. No family contact as of now. last EKG showed T-wave inversion in multiple leads Objective vital signs Vital Sign Date Time Temp Pulse Resp B/P (MAP) Pulse Ox O2 Delivery O2 Flow Rate FiO2 03/01/24 11:35 80 20 139/57 (84) 100 30 03/01/24 09:30 99.0 99.0 03/01/24 08:41 Mechanical Ventilator+ Total Intake and Output 02/29/24 02/29/24 03/01/24 15:00 23:00 07:00 Intake Total 100 ml Balance 100 ml medications Current Medications Medications Dose Ordered Sig/Ariela Route Start Time Stop Time Status Last Admin Dose Admin Propofol 100 ml @ 3 mls/hr Q24H IV 03/01/24 00:30 03/01/24 00:23 3 MLS/HR Fentanyl Citrate 250 ml @ 2.5 mls/hr Q24H IV 03/01/24 00:30 03/01/24 05:24 2.5 MLS/HR Norepinephrine Bitartrate 250 ml @ 3.75 mls/hr Q24H IV 03/01/24 00:35 03/01/24 06:05 52.5 MLS/HR Midazolam HCl 50 ml @ 1 mls/hr Q24H IV 03/01/24 06:00 03/01/24 06:05 1 MLS/HR Nitroglycerin 0.4 mg Q5MINP PRN SL 03/01/24 08:00 Morphine Sulfate 2 mg Q30M PRN IV 03/01/24 08:00 Atorvastatin Calcium 40 mg HS PO 03/01/24 22:00 Meropenem 50 ml @ 17 mls/hr DAILY IV 03/01/24 08:00 UNV 03/01/24 11:39 17 MLS/HR Diagnostic Test (Pha) 1 strip Q6HR 03/01/24 12:00 Insulin Human Regular Q6HR SC 03/01/24 12:00 Dextrose 50 ml UD PRN IV 03/01/24 08:00 Magnesium Sulfate/ Dextrose 100 ml @ 100 mls/hr Q1H IV 03/01/24 08:00 03/01/24 09:59 UNV Vancomycin HCl 0 ml @ 0 mls/hr UD IV 03/01/24 11:15 UNV Piperacillin Sod/ Tazobactam Sod 100 ml @ 25 mls/hr Q12HR IV 03/01/24 22:00 UNV Examination Examination General Appearance: Sedated and intubated Respiratory: Clear to auscultation, Normal air movement, on mechanical ventilator Cardiovascular: Regular rate, Normal S1, Normal S2 Abdominal: Normal bowel sounds Extremities: No cyanosis, No edema, Normal pulses, No tenderness/swelling Skin: No rashes, No breakdown Neuro: Sedated and intubated laboratory and microbiology Laboratory Tests 03/01/24 00:25 Test 03/01/24 00:25 Range/Units Serum Glucose 133 H 74-106 mg/dL Labs and/or images reviewed: Labs reviewed by me, Image(s) reviewed by me Problem List/Assessment/Plan Problem List/Assessment/Plan Assessment/Plan Neurology #Altered level of consciousness due to hypoxic encephalopathy/bradycardia -Head CT -UDS Cardiology #Shock likely due to septic shock sedatives/bradycardia -on norepinephrine #history of hypertension -currently in shock #elevated trops NSTEMI type 2, ACS not ruled out yet -EKG showed t-wave inversion in multiple leads -cardiology on board #Bradycardia likely due to hypoxia -currently HR is in 80s #Hyperlipidemia -will resume home meds once stable Resp #Acute hypoxic resp failure likely due to influenza infection [facility], RR 20, TV 400ml, 30%FiO2, PEEP 5 #Influenza pneumonia, bacterial pneumonia not ruled out -will avoid steroids -will start oseltamavir -pancultures -emperic treatment with vanc and zosyn Endocrine #DM2 -sliding scale insulin GI #Transaminitis -due to shock Nephrology #ESRD on dialysis -nephrology consult #Anion gap met acidosis -due to lactic acidosis ID #septic shock -IV vanc plus IV Zosyn panculture Drips Versed Fentanyl Propofol Norepinephrine Lines Right subclavian triple lumen catheter I/o pt is anuric Code status, no family contact, full code as of now Case discussion with Dr mcpherson critical care time 53 mins Plan discussed with: Patient, Other My Orders My Orders Orders - MARY KRUGER Procedure Category Date Status Time Vancomycin Per PHA 03/01/24 Logged Pharmacy 11:15 Piperacillin-Tazob PHA 03/01/24 Logged 3.375gm (Zosyn 3.375g 22:00 Date of Service: Mar 01, 2024 Billing Provider: DISHA MCPHERSON MD Common Visit Codes: [id number] CARE 30-74 MIN MARY KRUGER Mar 01, 2024 11:42 DISHA MCPHERSON MD Mar 01, 2024 22:41
[2024-03-01] MEDS: InsuLIN REG 1unit/0.01ml Soln (100units/ml) SC SCH (11:59)
[2024-03-01] MEDS: ACCU-CHEK COMFORT CURVE STRIP VI SCH (11:59)
[2024-03-01] MEDS: VANCOMYCIN 1.5GM/300ML 300 ML IV ONE (12:30)
[2024-03-01] MEDS: OSELTAMIVIR 30 MG CAP PO ONE (13:13)
[2024-03-01 13:41] LABS: Basophils # (auto) 0 10 ^3/uL (0-0.2); Basophils % (auto) 0.3 % (0.0-2.0); Eosinophils # (auto) 0 10 ^3/uL (0-0.8); Eosinophils % (auto) 0.1 % (0.0-7.0); Hematocrit 42.5 % (36.0-46.0); Hemoglobin 13.8 g/dL (12.2-16.2); Lymphocytes # (auto) 0.4 10 ^3/uL (0.4-5.4); Lymphocytes % (auto) 4.3 % (10.0-50.0); Mean Corpuscular Hemoglobin 31.8 pg (28.0-32.0); Mean Corpuscular Hgb Conc. 32.4 g/dL (32.0-36.0); Monocytes # (auto) 0.3 10 ^3/uL (0-1.3); Monocytes % (auto) 2.7 % (0.0-12.0); Neutrophils # (auto) 9.3 10 ^3/uL (1.6-8.6); Neutrophils % (auto) 92.6 % (37.0-80.0); Nucleated Red Blood Cells % 0.2 %; Platelet Count (auto) 108 10^3/uL (140-450); Red Blood Cells 4.33 10^6/uL (4.0-5.20); Red Cell Distribution Width 15.1 % (11.8-14.3)
[2024-03-01 14:02] LABS: Anion Gap 16 (5-15); BUN/Creatinine Ratio 9.5 (10.0-20.0); Calcium 9.4 mg/dL (8.7-10.4); Carbon Dioxide 23 mmol/L (20-31); Chloride 99 mmol/L (98-107); Sodium 138 mmol/L (136-145)
[2024-03-01 14:03] LABS: Albumin 3.6 g/dL (3.2-4.8); Bilirubin, Total 0.7 mg/dL (0.2-1.0); Total Protein 6.2 g/dL (5.7-8.2)
[2024-03-01 14:07] LABS: Alanine Aminotransferase 223 U/L (7-40); Alkaline Phosphatase 216 U/L (46-116); Aspartate Aminotransferase 475 U/L (13-40); Blood Urea Nitrogen 72 mg/dL (9-23); Glucose 199 mg/dL (74-106); Potassium 5.3 mmol/L (3.5-5.1)
[2024-03-01 14:18] LABS: Lactic Acid w/Reflex 2.7 mmol/L (0.4-2.0)
[2024-03-01 14:35] LABS: COVID19 ANTIGEN SOFIA FIA NEGATIVE (NEGATIVE)
--- NOTE | 2024-03-01 14:39 | DVHSR ---
APPROVED REPORT EXAM: LIMITED Two-dimensional and M-mode echocardiogram with Doppler and color Doppler. Blood Pressure: 141/55 mmHg INDICATION NSTEMI RISK FACTORS Obesity: Height: 5' 2", Weight: 229 DIMENSIONS LVDd5.0 (3.8-5.7cm)LA (2D)4.0 (1.9-4.0cm)Aortic Root2.8 (2.0-3.7cm) LVDs2.8 (2.5-4.0cm)LA (MM) (1.9-4.0cm)Aortic Cusp Exc1.7 (1.5-2.0cm) EF (%) 74.0 (55-70%)Rt. Atrium4.8 (1.9-4.0cm)Asc. Aorta cm IVSd1.3 (0.7-1.1cm)RV (D) (1.8-2.4cm) PWd1.3 (0.7-1.1cm) Mitral Valve MitralMitral Stenosis E wave1.00m/sMV Mean GR.mmHg A wave0.70m/sMV Peak GR.mmHg E/A ratio1.42D MVAcm2 Aortic Valve Aortic ValveAortic Stenosis V10.90m/Desire Mean GR.6mmHg V21.80m/Desire Peak GR.14mmHg LVOT Diameter2.1 (1.8-2.4cm)Doppler AVA1.73cm2 Pulmonic Valve V20.60m/s Tricuspid Valve TR Velocity2.65m/s [id number] Other Information Quality : Technically LimitedRhythm : Technically limited study due to body habitus and on vent. Conclusion Technically good study. Sinus rhythm. Left atrial enlargement. RV enlargement. Moderate mitral annular calcification of the base of the posterior mitral leaflet Left ventricular function is preserved at 60% with normal RV function. Moderate tricuspid regurgitation. Mild aortic insufficiency. No pericardial effusion masses or vegetations.
[2024-03-01] MEDS: ALBUTEROL SULF 2.5 MG/0.5ML(0.5%) NEB SOLN NEB ONE (15:09)
[2024-03-01] MEDS: InsuLIN REG 1unit/0.01ml Soln (100units/ml) IV ONE (15:14)
[2024-03-01] MEDS: DEXTROSE (50%) 50ML SYRG IV ONE (15:15)
[2024-03-01] MEDS: SODIUM ZIRCONIUM CYCL 10 GM PAK PO ONE (15:15)
[2024-03-01] MEDS: MEROPENEM 500MG IVPB 50 ML IV ONE (15:27)
--- NOTE | 2024-03-01 17:17 | DVHINCON2 ---
Date of service: Mar 01, 2024 Referring Physician Joseph Helm Np Reason for Consultation ESRD History of Present Illness Mrs. Jose is a 74-year-old female with no history of ESRD, hypertension who presented for further evaluation and management of dyspnea. Her clinical course has been notable for requiring intubation and mechanical ventilation. She is seen in the emergency department intubated and sedated. All the history was obtained to the chart. Past Medical History ESRD hypertension Diabetes Anemia Allergies: Coded Allergies: NO KNOWN ALLERGIES (Unverified , 03/01/24) Current Medications Current Medications Medications (Trade) Dose Ordered Sig/Ariela Route PRN Reason Start Time Stop Time Status Last Admin Propofol 100 ml @ 3 mls/hr Q24H IV 03/01/24 00:30 03/01/24 00:23 Midazolam HCl 50 ml @ 1 mls/hr Q24H IV 03/01/24 00:30 03/01/24 00:32 DC Fentanyl Citrate 250 ml @ 2.5 mls/hr Q24H IV 03/01/24 00:30 03/01/24 05:24 Norepinephrine Bitartrate 250 ml @ 3.75 mls/hr Q24H IV 03/01/24 00:35 03/01/24 06:05 Midazolam HCl 50 ml @ 1 mls/hr Q24H IV 03/01/24 06:00 03/01/24 06:05 Nitroglycerin (Ntrostat Sublingual) 0.4 mg Q5MINP PRN SL FOR CHEST PAIN 03/01/24 08:00 03/01/24 12:19 DC Morphine Sulfate 2 mg Q30M PRN IV FOR CHEST PAIN 03/01/24 08:00 03/01/24 12:19 DC Atorvastatin Calcium (Lipitor) 40 mg HS PO 03/01/24 22:00 Meropenem 50 ml @ 17 mls/hr DAILY IV 03/01/24 08:00 03/01/24 12:10 UNV 03/01/24 11:39 Diagnostic Test (Pha) (Accu-Chek Comfort Curve T) 1 strip Q6HR 03/01/24 12:00 03/01/24 11:59 Insulin Human Regular (InsuLIN R) Q6HR SC 03/01/24 12:00 Dextrose 50 ml UD PRN IV Blood Sugar LESS THAN 60 03/01/24 08:00 Magnesium Sulfate/ Dextrose 100 ml @ 100 mls/hr Q1H IV 03/01/24 08:00 03/01/24 16:33 DC Vancomycin HCl 0 ml @ 0 mls/hr UD IV 03/01/24 11:15 Piperacillin Sod/ Tazobactam Sod 100 ml @ 25 mls/hr Q12HR IV 03/01/24 22:00 03/01/24 15:05 DC Oseltamivir Phosphate (Tamiflu 30MG Capsule) 30 mg POSTDI PO 03/02/24 22:00 03/07/24 21:59 Zirconium Oxide (Lokelma) 10 gm TID PO 03/01/24 22:00 03/03/24 14:01 Meropenem 50 ml @ 17 mls/hr DAILY IV 03/02/24 10:00 Review of Systems unable to be obtained due to patient's critical status H&P Exam Vital Signs/I&O Vital Sign Date Time Temp Pulse Resp B/P (MAP) Pulse Ox O2 Delivery O2 Flow Rate FiO2 03/01/24 16:00 125 03/01/24 15:00 112/49 03/01/24 14:19 20 100 30 03/01/24 13:45 99.3 99.3 03/01/24 08:41 Mechanical Ventilator+ Intake and Output 02/29/24 03/01/24 19:00 07:00 Intake Total 100 ml Balance 100 ml Intake IV Total 100 ml Physical Exam gen: intubated and sedated heent: + ett lungs: cta cvs: no rub abd: soft exT: trace edema, LuE AV access patent skin: no rash Labs/Diagnostic Data Labs/Diagnostic Data Laboratory Tests Test 03/01/24 15:08 03/01/24 15:02 03/01/24 13:20 03/01/24 13:06 Range/Units POC Glucose 186 H 70-106 mg/dl Lactic Acid Level 2.4 *H 2.7 *H 0.4-2.0 mmol/L SARS-CoV-2 Antigen (Rapid) Negative NEGATIVE White Blood Count 10.0 # 4.4-10.8 10^3/uL Red Blood Count 4.33 4.0-5.20 10^6/uL Hemoglobin 13.8 12.2-16.2 g/dL Hematocrit 42.5 36.0-46.0 % Mean Corpuscular Volume 98.0 # 80.0-100.0 fL Mean Corpuscular Hemoglobin 31.8 28.0-32.0 pg Mean Corpuscular Hemoglobin Concent 32.4 32.0-36.0 g/dL Red Cell Distribution Width 15.1 H 11.8-14.3 % Platelet Count 108 L 140-450 10^3/uL Mean Platelet Volume 11.0 H 6.9-10.8 fL Neutrophils (%) (Auto) 92.6 H 37.0-80.0 % Lymphocytes (%) (Auto) 4.3 L 10.0-50.0 % Monocytes (%) (Auto) 2.7 0.0-12.0 % Eosinophils (%) (Auto) 0.1 0.0-7.0 % Basophils (%) (Auto) 0.3 0.0-2.0 % Neutrophils # (Auto) 9.3 H 1.6-8.6 10 ^3/uL Lymphocytes # (Auto) 0.4 0.4-5.4 10 ^3/uL Monocytes # (Auto) 0.3 0-1.3 10 ^3/uL Eosinophils # (Auto) 0 0-0.8 10 ^3/uL Basophils # (Auto) 0 0-0.2 10 ^3/uL Nucleated Red Blood Cells 0.2 % Sodium Level 138 136-145 mmol/L Potassium Level 5.3 H 3.5-5.1 mmol/L Chloride Level 99 98-107 mmol/L Carbon Dioxide Level 23 20-31 mmol/L Anion Gap 16 H 5-15 Blood Urea Nitrogen 72 #H 9-23 mg/dL Creatinine 7.61 H 0.550-1.02 mg/dL Glomerular Filtration Rate Calc 5 >90 mL/min BUN/Creatinine Ratio 9.5 L 10.0-20.0 Serum Glucose 199 H 74-106 mg/dL Calcium Level 9.4 8.7-10.4 mg/dL Total Bilirubin 0.7 0.2-1.0 mg/dL Aspartate Amino Transferase (AST) 475 H 13-40 U/L Alanine Aminotransferase (ALT) 223 H 7-40 U/L Alkaline Phosphatase 216 H 46-116 U/L Total Protein 6.2 5.7-8.2 g/dL Albumin 3.6 3.2-4.8 g/dL Test 03/01/24 11:56 03/01/24 08:28 03/01/24 05:00 03/01/24 03:30 Range/Units Blood Gas Specimen Type Arterial Arterial Blood Gas Sample Site Right radial Right radial Blood Gas Patient Temperature 37.0 37.0 Arterial Blood Date Drawn [id number] Arterial Blood pH 7.372 7.238 *L 7.350-7.450 Arterial Blood Partial Pressure CO2 34.0 40.8 32.0-45.0 mmHg Arterial Blood Partial Pressure O2 78.9 L 81.3 L 83.0-108.0 mmHg Arterial Blood HCO3 19.3 L 17.0 L 21.0-28.0 mmol/L Arterial Blood Oxygen Saturation 95.3 94.5 94.0-98.0 % Arterial Blood Base Excess -5.0 L -9.9 L -2.0-3.0 mmol/L Arterial Blood Oxyhemoglobin 93.7 L 93.0 L 94.0-98.0 % Arterial Blood Carboxyhemoglobin 1.3 1.4 0.5-1.5 % Arterial Blood Methemoglobin 0.4 0.2 0.0-1.5 % Niraj Test Modified Modified Blood Gas Total Hemoglobin 14.60 15.00 12.0-16.0 g/dL Blood Gas Set Respiration Rate 20.0 20.0 Blood Gas Modality Vent - ac Vent - ac FiO2 % 30.0 30.0 Blood Gas Tidal Volume 400.0 400.0 Blood Gas PEEP or CPAP 5.0 5.0 Blood Gas Critical Value Read Back Yes Blood Gas Notified Whom Elidia alvarado Blood Gas Notified Time [id number] Blood Gas Notified By Juan Diego conde Influenza Type A Antigen Positive Negative Influenza Type B Antigen Negative Negative Hemoglobin A1c 6.8 H <5.7 % A1C Troponin I High Sensitivity 3257 *H </=34 ng/L Triglycerides Level 171 H < 150 mg/dL Cholesterol Level 130 < 200 mg/dL LDL Cholesterol 46 < 100 mg/dL HDL Cholesterol 51 40-59 mg/dL Thyroid Stimulating Hormone (TSH) 11.07 H 0.55-4.78 uIU/mL Test 03/01/24 03:05 03/01/24 02:40 03/01/24 01:49 03/01/24 01:40 Range/Units Blood Gas Specimen Type Arterial Arterial Blood Gas Sample Site Right radial Right brachial Blood Gas Patient Temperature 37.0 37.0 Arterial Blood Date Drawn [id number] Arterial Blood pH 7.132 *L 7.097 *L 7.350-7.450 Arterial Blood Partial Pressure CO2 42.5 45.4 H 32.0-45.0 mmHg Arterial Blood Partial Pressure O2 137.1 H 384.0 *H 83.0-108.0 mmHg Arterial Blood HCO3 13.9 L 13.7 L 21.0-28.0 mmol/L Arterial Blood Oxygen Saturation 97.8 99.6 H 94.0-98.0 % Arterial Blood Base Excess -14.8 L -15.8 L -2.0-3.0 mmol/L Arterial Blood Oxyhemoglobin 96.5 98.4 H 94.0-98.0 % Arterial Blood Carboxyhemoglobin 0.8 0.9 0.5-1.5 % Arterial Blood Methemoglobin 0.5 0.3 0.0-1.5 % Niraj Test Modified Modified Blood Gas Total Hemoglobin 15.30 15.50 12.0-16.0 g/dL Blood Gas Set Respiration Rate 20.0 18.0 Blood Gas Modality Vent - ac Vent - ac FiO2 % 50.0 100.0 Blood Gas Tidal Volume 400.0 400.0 Blood Gas PEEP or CPAP 5.0 5.0 Blood Gas Critical Value Read Back Yes Yes Blood Gas Notified Whom ke Lucio md, md Blood Gas Notified Time [id number] Blood Gas Notified By Senior Science Consultant [employer] Matthew, amaya Lactic Acid Level 8.2 *H 0.4-2.0 mmol/L Magnesium Level 3.8 H 1.6-2.6 mg/dL Troponin I High Sensitivity 2876 *H </=34 ng/L Test 03/01/24 00:25 Range/Units White Blood Count 5.3 4.4-10.8 10^3/uL Red Blood Count 4.06 4.0-5.20 10^6/uL Hemoglobin 12.7 12.2-16.2 g/dL Hematocrit 42.0 36.0-46.0 % Mean Corpuscular Volume 103.4 H 80.0-100.0 fL Mean Corpuscular Hemoglobin 31.3 28.0-32.0 pg Mean Corpuscular Hemoglobin Concent 30.3 L 32.0-36.0 g/dL Red Cell Distribution Width 16.1 H 11.8-14.3 % Platelet Count 75 L 140-450 10^3/uL Mean Platelet Volume 11.4 H 6.9-10.8 fL Neutrophils (%) (Auto) 79.0 37.0-80.0 % Lymphocytes (%) (Auto) 14.1 10.0-50.0 % Monocytes (%) (Auto) 5.7 0.0-12.0 % Eosinophils (%) (Auto) 0.3 0.0-7.0 % Basophils (%) (Auto) 0.9 0.0-2.0 % Neutrophils # (Auto) 4.2 1.6-8.6 10 ^3/uL Lymphocytes # (Auto) 0.7 0.4-5.4 10 ^3/uL Monocytes # (Auto) 0.3 0-1.3 10 ^3/uL Eosinophils # (Auto) 0 0-0.8 10 ^3/uL Basophils # (Auto) 0 0-0.2 10 ^3/uL Nucleated Red Blood Cells 0.3 % Prothrombin Time 16.1 H 9.3-11.8 sec Prothrombin Time INR 1.57 H 0.9-1.15 Sodium Level 139 136-145 mmol/L Potassium Level 4.6 3.5-5.1 mmol/L Chloride Level 103 98-107 mmol/L Carbon Dioxide Level 20 20-31 mmol/L Anion Gap 16 H 5-15 Blood Urea Nitrogen 52 H 9-23 mg/dL Creatinine 6.64 H 0.550-1.02 mg/dL Glomerular Filtration Rate Calc 6 >90 mL/min BUN/Creatinine Ratio 7.8 L 10.0-20.0 Serum Glucose 133 H 74-106 mg/dL Lactic Acid Level 6.8 *H 0.4-2.0 mmol/L Calcium Level 8.8 8.7-10.4 mg/dL Total Bilirubin 0.7 0.2-1.0 mg/dL Aspartate Amino Transferase (AST) 221 H 13-40 U/L Alanine Aminotransferase (ALT) 98 H 7-40 U/L Alkaline Phosphatase 195 H 46-116 U/L Troponin I High Sensitivity 2335 *H </=34 ng/L B-Type Natriuretic Peptide 1404.90 0-100 pg/mL Total Protein 6.2 5.7-8.2 g/dL Albumin 3.6 3.2-4.8 g/dL Assessment IMP: 1) ESRD on dialysis 2) hypoxemic respiratory failure 3) anemia - at goal 4) possible bacterial pneumonia 5) transaminitis REC: - Dialysis today, UF as hemodynamics permit - DARRIN with HD - will attempt to contact family to acquire additional history - will continue to follow along with you. Plan discussed with: Other ARASELI CARLTON MD Mar 01, 2024 17:17
[2024-03-01] MEDS: LEVALBUTEROL HCL 1.25 MG/3 ML NEB NEB ONE (20:59)
[2024-03-01] MEDS: IPRATROPIUM BROM 0.5 MG/2.5ML INH SOL NEB ONE (20:59)
[2024-03-01] MEDS: ATORVASTATIN 20 MG TAB PO SCH (21:41)
[2024-03-01] MEDS: SODIUM ZIRCONIUM CYCL 10 GM PAK PO SCH (21:41)
[2024-03-01] MEDS ORDERED: PIPERACILLIN-TAZOB 3.375GM 100 ML IV SCH (22:00)
[2024-03-01] MEDS: VASOPRESSIN 20 UNITS in SODIUM CHL 0.9% 99 ML IV SCH (22:20)
[2024-03-01] MEDS: SODIUM CHL 0.9% 1000 ML BAG XX ONE (22:22)
[2024-03-01] MEDS: VASOPRESSIN 20 UNIT/ML ONE (22:23)
[2024-03-02] VITALS (14 sets, daily range): BP systolic 95–164; BP diastolic 29–69; PULSE 57–164; RESP 20; O2SAT 92–99
[2024-03-02] MEDS ORDERED: LEVALBUTEROL HCL 1.25 MG/3 ML NEB NEB SCH
[2024-03-02] MEDS: AMIODARONE BOLUS KIT 100 ML IV ONE (01:54)
[2024-03-02] MEDS: AMIODARONE 450mg/250ml AE 250 ML IV SCH ×2 (02:41→08:00)
[2024-03-02 04:54] LABS: Basophils # (auto) 0.1 10 ^3/uL (0-0.2); Basophils % (auto) 0.4 % (0.0-2.0); Eosinophils # (auto) 0.1 10 ^3/uL (0-0.8); Eosinophils % (auto) 0.6 % (0.0-7.0); Hematocrit 44.8 % (36.0-46.0); Hemoglobin 14.5 g/dL (12.2-16.2); Lymphocytes # (auto) 0.9 10 ^3/uL (0.4-5.4); Lymphocytes % (auto) 5.7 % (10.0-50.0); Mean Corpuscular Hemoglobin 32.2 pg (28.0-32.0); Mean Corpuscular Hgb Conc. 32.3 g/dL (32.0-36.0); Mean Corpuscular Volume 99.6 fL (80.0-100.0); Monocytes # (auto) 1.1 10 ^3/uL (0-1.3); Monocytes % (auto) 7.2 % (0.0-12.0); Neutrophils # (auto) 13.6 10 ^3/uL (1.6-8.6); Neutrophils % (auto) 86.1 % (37.0-80.0); Nucleated Red Blood Cells % 0.7 %; Platelet Count (auto) 110 10^3/uL (140-450); Red Cell Distribution Width 15.2 % (11.8-14.3); White Blood Cell 15.8 10^3/uL (4.4-10.8)
--- NOTE | 2024-03-02 06:14 | DVH ---
CHEST RADIOGRAPH Indication: mech vent Technique: Single frontal view of the chest was obtained COMPARISON: XY CHEST PORTABLE on DOS: 03/01/24, XY CHEST XRAY 1 VIEW on DOS: 03/01/24 FINDINGS: Lines and Tubes: Endotracheal tube and enteric catheter in satisfactory position. Right central venou s catheter in satisfactory position. Lungs: Multifocal airspace disease. Pleura: No effusion. No pneumothorax. Cardiomediastinal contours: Unremarkable Bones: Unremarkable IMPRESSION: Lines and tubes in satisfactory position. No significant interval change.
[2024-03-02] MEDS: IPRATROPIUM BROM 0.5 MG/2.5ML INH SOL NEB PRN (06:27)
[2024-03-02] MEDS: LEVALBUTEROL HCL 1.25 MG/3 ML NEB NEB PRN (06:27)
[2024-03-02] MEDS: VASOPRESSIN 20 UNIT/ML ONE (07:04)
[2024-03-02 09:12] LABS: Albumin 3.8 g/dL (3.2-4.8); Calcium 9.4 mg/dL (8.7-10.4)
[2024-03-02 09:13] LABS: Bilirubin, Total 0.8 mg/dL (0.2-1.0); Total Protein 6.8 g/dL (5.7-8.2)
[2024-03-02 09:17] LABS: Lactic Acid w/Reflex 2.3 mmol/L (0.4-2.0)
[2024-03-02 09:22] LABS: Alanine Aminotransferase 855 U/L (7-40); Alkaline Phosphatase 232 U/L (46-116); Blood Urea Nitrogen 43 mg/dL (9-23); Carbon Dioxide 20 mmol/L (20-31); Glucose 300 mg/dL (74-106); Magnesium 2.7 mg/dL (1.6-2.6)
[2024-03-02 09:24] LABS: Anion Gap 19 (5-15); Potassium 4.4 mmol/L (3.5-5.1)
[2024-03-02 09:36] LABS: Chloride 97 mmol/L (98-107); Sodium 135 mmol/L (136-145)
[2024-03-02 09:40] LABS: Aspartate Aminotransferase 1610 U/L (13-40)
[2024-03-02] MEDS: MEROPENEM 500MG IVPB 50 ML IV SCH (10:07)
--- NOTE | 2024-03-02 13:22 | ECG ---
[facility] Test Date: 2024-03-01 Test Time: 03:16:59 Pat Name: JESE JACK Department: ER Room: [address] [place] [address] A Gender: F Out Patient Therapist: YANCY : 1950 Requested By: YANA CHRISTINA Order Number: [id number] Reading MD: Cristi Logan Measurements Intervals [place] Rate: 140 P: 0 MT: 0 QRS: 153 QRSD: 113 T: 18 QT: 341 QTc: 521 Interpretive Statements Atrial fibrillation IRBBB and LPFB Low voltage, precordial leads Abnormal lateral Q waves ST depression, probably rate related Prolonged QT interval Electronically Signed On 03-02-2024 22:16:46 PST by Cristi Logan Please click the below link to view image of tracing.
[2024-03-02] MEDS: SODIUM ZIRCONIUM CYCL 10 GM PAK PO SCH (14:00)
--- NOTE | 2024-03-02 15:34 | DVHPN2 ---
Progress Note Date Seen: Mar 02, 2024 Medical Necessity Reason Pt with a Central, PICC or Fol: Yes The following are medically ne: Central Line, Kaur Catheter Reason for kaur catheter: Strict I&O Subjective Patient reports: No new complaints Review of Systems: HEENT:Normal, CVS:Normal, RESPIRATORY:Normal, GI:Normal, :Normal, MSK:Normal, NEURO:Normal Objective vital signs Vital Sign Date Time Temp Pulse Resp B/P (MAP) Pulse Ox O2 Delivery O2 Flow Rate FiO2 03/02/24 14:58 99.8 86 20 125/35 (65) 94 99.8 03/02/24 14:48 30 03/02/24 07:35 Mechanical Ventilator+ Total Intake and Output 03/01/24 03/01/24 03/02/24 15:00 23:00 07:00 Intake Total 100 ml Balance 100 ml medications Current Medications Medications Dose Ordered Sig/Ariela Route Start Time Stop Time Status Last Admin Dose Admin Propofol 100 ml @ 3 mls/hr Q24H IV 03/01/24 00:30 03/01/24 21:00 15 MLS/HR Fentanyl Citrate 250 ml @ 2.5 mls/hr Q24H IV 03/01/24 00:30 03/01/24 23:39 15 MLS/HR Norepinephrine Bitartrate 250 ml @ 3.75 mls/hr Q24H IV 03/01/24 00:35 03/02/24 00:05 56.25 MLS/HR Midazolam HCl 50 ml @ 1 mls/hr Q24H IV 03/01/24 06:00 03/02/24 11:19 5 MLS/HR Atorvastatin Calcium 40 mg HS PO 03/01/24 22:00 03/01/24 21:41 40 MG Diagnostic Test (Pha) 1 strip Q6HR 03/01/24 12:00 03/02/24 12:07 1 STRIP Insulin Human Regular Q6HR SC 03/01/24 12:00 03/02/24 12:11 4 UNITS Dextrose 50 ml UD PRN IV 03/01/24 08:00 Vancomycin HCl 0 ml @ 0 mls/hr UD IV 03/01/24 11:15 Oseltamivir Phosphate 30 mg POSTDI PO 03/02/24 22:00 03/07/24 21:59 Meropenem 50 ml @ 17 mls/hr DAILY IV 03/02/24 10:00 03/02/24 10:07 17 MLS/HR Vasopressin 20 units/Sodium Chloride 100 ml @ 9 mls/hr Q11H7M IV 03/01/24 20:30 03/02/24 06:59 9 MLS/HR Ipratropium [place] 0.5 mg Q6HPRN PRN NEB 03/02/24 00:00 03/02/24 06:27 0.5 MG Amiodarone HCl 250 ml @ 16.667 mls/ hr Q15H IV 03/02/24 08:00 03/02/24 08:00 16.667 MLS/HR Levalbuterol HCl 0.625 mg Q6HPRN PRN NEB 03/02/24 06:00 03/02/24 06:27 0.625 MG Zirconium Oxide 10 gm TID PO 03/02/24 14:00 03/03/24 22:01 Examination: GENERAL:Normal, HEENT:Normal, NECK:Normal, LUNGS:Normal, LUNGS:Abnormal (intubated), CVS:Normal, ABDOMEN:Normal, MSK:Normal, SKIN:Normal, NEURO:Normal, NEURO:Abnormal (sedated), :Normal laboratory and microbiology Laboratory Tests 03/02/24 08:20 03/02/24 04:44 Test 03/02/24 08:20 Range/Units Serum Glucose 300 H 74-106 mg/dL Microbiology Date/Time Source Procedure Growth Status 03/01/24 00:55 Sputum Gram Stain - Final Resulted 03/01/24 00:55 Sputum Respiratory Culture - Preliminary Resulted 03/01/24 00:25 Blood Blood Culture - Preliminary NO GROWTH AFTER 24 HOURS OF INCUBATION. Resulted Problem List/Assessment/Plan Problem List/Assessment/Plan #1 acute resp failure: cont acv #2 septic shock with pneumonia: cultures, iv antibiotics #3 esrd: on dialysis #4 dm: ssi #5 morbid obesity #6 thrombocytopenia: monitor #7 nstemi: per cardiology #8 a fib: on amiodarone #9 transaminitis: liver usg, dc lipitor #10 influenza A: tamiflu Plan discussed with: Other (rn) Critical Care Time (mins): 81 (critical care time 81 mins) Date of Service: Mar 02, 2024 Billing Provider: KATIANA CHEN MD Common Visit Codes: [id number] CARE 30-74 MIN, [id number] CARE-EACH +30MIN KATIANA CHEN MD Mar 02, 2024 15:34
[2024-03-02] MEDS: PANTOPRAZOLE 40 MG/10 ML VIAL INJ IV ONE (16:15)
[2024-03-02] MEDS: ETOMIDATE (2MG/ML) 20ML VIAL IV ONE (16:21)
--- NOTE | 2024-03-02 16:26 | DVHPN2 ---
Progress Note Date Seen: Mar 02, 2024 Medical Necessity Reason Pt with a Central, PICC or Fol: Yes The following are medically ne: Central Line, Kaur Catheter Reason for kaur catheter: Strict I&O Subjective Review of Systems: RESPIRATORY:Abnormal Other Systems: Patient seen and examined by myself today in f/u Patient remianed intubated on ventilator Objective vital signs Vital Sign Date Time Temp Pulse Resp B/P (MAP) Pulse Ox O2 Delivery O2 Flow Rate FiO2 03/02/24 16:00 144/56 03/02/24 14:58 99.8 86 20 94 99.8 03/02/24 14:48 30 03/02/24 07:35 Mechanical Ventilator+ Total Intake and Output 03/01/24 03/01/24 03/02/24 15:00 23:00 07:00 Intake Total 100 ml Balance 100 ml medications Current Medications Medications Dose Ordered Sig/Ariela Route Start Time Stop Time Status Last Admin Dose Admin Propofol 100 ml @ 3 mls/hr Q24H IV 03/01/24 00:30 03/01/24 21:00 15 MLS/HR Fentanyl Citrate 250 ml @ 2.5 mls/hr Q24H IV 03/01/24 00:30 03/01/24 23:39 15 MLS/HR Norepinephrine Bitartrate 250 ml @ 3.75 mls/hr Q24H IV 03/01/24 00:35 03/02/24 00:05 56.25 MLS/HR Midazolam HCl 50 ml @ 1 mls/hr Q24H IV 03/01/24 06:00 03/02/24 11:19 5 MLS/HR Diagnostic Test (Pha) 1 strip Q6HR 03/01/24 12:00 03/02/24 12:07 1 STRIP Insulin Human Regular Q6HR SC 03/01/24 12:00 03/02/24 12:11 4 UNITS Dextrose 50 ml UD PRN IV 03/01/24 08:00 Vancomycin HCl 0 ml @ 0 mls/hr UD IV 03/01/24 11:15 Oseltamivir Phosphate 30 mg POSTDI PO 03/02/24 22:00 03/07/24 21:59 Meropenem 50 ml @ 17 mls/hr DAILY IV 03/02/24 10:00 03/02/24 10:07 17 MLS/HR Vasopressin 20 units/Sodium Chloride 100 ml @ 9 mls/hr Q11H7M IV 03/01/24 20:30 03/02/24 06:59 9 MLS/HR Ipratropium [place] 0.5 mg Q6HPRN PRN NEB 03/02/24 00:00 03/02/24 06:27 0.5 MG Amiodarone HCl 250 ml @ 16.667 mls/ hr Q15H IV 03/02/24 08:00 03/02/24 08:00 16.667 MLS/HR Levalbuterol HCl 0.625 mg Q6HPRN PRN NEB 03/02/24 06:00 03/02/24 06:27 0.625 MG Zirconium Oxide 10 gm TID PO 03/02/24 14:00 03/03/24 22:01 Pantoprazole Sodium 40 mg DAILY IV 03/03/24 10:00 Examination: LUNGS:Normal, CVS:Normal, MSK:Normal laboratory and microbiology Laboratory Tests 03/02/24 08:20 03/02/24 04:44 Test 03/02/24 08:20 Range/Units Serum Glucose 300 H 74-106 mg/dL Microbiology Date/Time Source Procedure Growth Status 03/01/24 00:55 Sputum Gram Stain - Final Resulted 03/01/24 00:55 Sputum Respiratory Culture - Preliminary Resulted 03/01/24 00:25 Blood Blood Culture - Preliminary NO GROWTH AFTER 24 HOURS OF INCUBATION. Resulted Problem List/Assessment/Plan Problem List/Assessment/Plan ESRD on dialysis Acute hypoxemic respiratory failure, intubated on ventilator Pneumonia HTN Sepsis Transaminitis Hyperphosphatemia REC: HD tomorrow Epogen 10,000 IV post HD Fluids restriction IV Abx Pulmonary consult Will follow Plan discussed with: Other (nurse) My Orders My Orders Orders - ENRRIQUE LANGLEY MD Procedure Category Date Status Time Hemodialysis Orders ORDERS 03/03/24 Transmitted 07:00 Dialysis Nursing JOHANA 03/03/24 In Process Message 07:00 Heparin Sodium PHA 03/03/24 In Process (Porcine) 07:00 Heparin Sodium PHA 03/03/24 In Process (Porcine) 07:00 Sodium Chloride 0.9% PHA 03/03/24 In Process 07:00 Document Fluid Input JOHANA 03/03/24 In Process And Outpu 07:00 ENRRIQUE LANGLEY MD Mar 02, 2024 16:26
--- NOTE | 2024-03-02 16:28 | DVH ---
INDICATION: elevated lft TECHNIQUE: Multiple real-time sonographic images of the abdomen were obtained. COMPARISON: None FINDINGS: Liver measures 13.7 cm. Liver appears echogenic compatible with fatty infiltration. No masses. No dil ated intrahepatic biliary ductal dilatation. Pleural effusions seen in the right lower chest. Gallbla dder surgically absent versus contracted Right kidney measures 8.5 and left kidney measuring 7.6 cm in craniocaudal dimensions. Pancreas not w ell seen secondary to overlying bowel gas. No abnormalities the inferior vena cava. Impression: Fatty infiltration of a normal sized liver Right pleural effusion Small probable atrophic kidneys Pancreas not well visualized 1.
[2024-03-02] MEDS: VANCOMYCIN 500mg/100mL 100 ML IV ONE (18:28)
[2024-03-02 18:48] LABS: Benzodiazephine Screen, Urine Pos (NEGATIVE)
[2024-03-02 18:57] LABS: Amphetamine Screen, Urine Neg (NEGATIVE); Barbiturate Scree,Urine Neg (NEGATIVE); Cannabinoid Screen, Urine Neg (NEGATIVE); Cocaine Screen, Urine Neg (NEGATIVE); Opiate Scree,Urine Neg (NEGATIVE); Phencyclidine Screen, Urine Neg (NEGATIVE)
[2024-03-03] VITALS (31 sets, daily range): BP systolic 103–157; BP diastolic 43–60; PULSE 51–72; RESP 14–22; TEMP 98.2–98.4; O2SAT 94–100
[2024-03-03] MEDS: VASOPRESSIN 20 UNIT/ML ONE (04:21)
--- NOTE | 2024-03-03 06:09 | DVH ---
CHEST RADIOGRAPH Indication: resp failure Technique: Single frontal view of the chest was obtained Comparison: XY CHEST PORTABLE on DOS: 03/02/24 FINDINGS: Lines and Tubes: The endotracheal tube terminates 1.7 cm above the sia. The enteric tube terminate s in the stomach. Right central venous catheter terminates in the superior vena cava. Lungs: Bilateral airspace disease noted increased since prior study. Pleura: No effusion. No pneumothorax. Cardiomediastinal contours: Cardiomegaly. Bones: No acute osseous abnormality. IMPRESSION: 1. Increased bilateral airspace disease compatible with worsening edema or pneumonia.
[2024-03-03] MEDS: SODIUM CHL 0.9% 1000 ML BAG XX ONE (07:00)
[2024-03-03 09:22] LABS: Basophils # (auto) 0 10 ^3/uL (0-0.2); Basophils % (auto) 0.1 % (0.0-2.0); Eosinophils # (auto) 0 10 ^3/uL (0-0.8); Eosinophils % (auto) 0.1 % (0.0-7.0); Hematocrit 42.6 % (36.0-46.0); Hemoglobin 13.5 g/dL (12.2-16.2); Lymphocytes # (auto) 0.4 10 ^3/uL (0.4-5.4); Mean Corpuscular Hemoglobin 31.2 pg (28.0-32.0); Mean Corpuscular Hgb Conc. 31.8 g/dL (32.0-36.0); Mean Corpuscular Volume 98.3 fL (80.0-100.0); Monocytes # (auto) 0.4 10 ^3/uL (0-1.3); Monocytes % (auto) 3.3 % (0.0-12.0); Neutrophils # (auto) 11.7 10 ^3/uL (1.6-8.6); Neutrophils % (auto) 93.5 % (37.0-80.0); Nucleated Red Blood Cells % 0.2 %; Platelet Count (auto) 95 10^3/uL (140-450); Red Blood Cells 4.34 10^6/uL (4.0-5.20); White Blood Cell 12.6 10^3/uL (4.4-10.8)
[2024-03-03 09:27] LABS: Albumin 3.3 g/dL (3.2-4.8); Anion Gap 15 (5-15); BUN/Creatinine Ratio 8.3 (10.0-20.0); Bilirubin, Total 0.6 mg/dL (0.2-1.0); Carbon Dioxide 21 mmol/L (20-31); Potassium 5.1 mmol/L (3.5-5.1)
[2024-03-03 09:28] LABS: Total Protein 6.1 g/dL (5.7-8.2)
[2024-03-03 09:40] LABS: Alkaline Phosphatase 195 U/L (46-116); Blood Urea Nitrogen 59 mg/dL (9-23); Chloride 98 mmol/L (98-107); Glucose 256 mg/dL (74-106); Sodium 134 mmol/L (136-145)
[2024-03-03 09:41] LABS: Alanine Aminotransferase 805 U/L (7-40); Aspartate Aminotransferase 1164 U/L (13-40); Calcium 8.7 mg/dL (8.7-10.4)
[2024-03-03 10:05] LABS: Base Excess -4.5 mmol/L (-2.0-3.0)
[2024-03-03] MEDS: PANTOPRAZOLE 40 MG/10 ML VIAL INJ IV SCH (10:10)
[2024-03-03] MEDS: ALBUMIN 25% 100 ML IV ONE (11:45)
--- NOTE | 2024-03-03 12:30 | DVHPN2 ---
Progress Note Date Seen: Mar 03, 2024 Medical Necessity Reason Pt with a Central, PICC or Fol: Yes The following are medically ne: Central Line, Kaur Catheter Reason for kaur catheter: Strict I&O Subjective Review of Systems: RESPIRATORY:Abnormal Other Systems: Patient seen and examined by myself today in follow-up Patient remained intubated on ventilator Patient examined hemodialysis, blood pressure stable Objective vital signs Vital Sign Date Time Temp Pulse Resp B/P (MAP) Pulse Ox O2 Delivery O2 Flow Rate FiO2 03/03/24 12:02 65 20 157/55 (89) 100 30 03/03/24 10:45 98.6 98.6 03/03/24 07:42 Mechanical Ventilator+ Total Intake and Output 03/02/24 03/02/24 03/03/24 15:00 23:00 07:00 Intake Total 50 ml 312.668 ml 335.335 ml Balance 50 ml 312.668 ml 335.335 ml medications Current Medications Medications Dose Ordered Sig/Ariela Route Start Time Stop Time Status Last Admin Dose Admin Propofol 100 ml @ 3 mls/hr Q24H IV 03/01/24 00:30 03/01/24 21:00 15 MLS/HR Fentanyl Citrate 250 ml @ 2.5 mls/hr Q24H IV 03/01/24 00:30 03/01/24 23:39 15 MLS/HR Norepinephrine Bitartrate 250 ml @ 3.75 mls/hr Q24H IV 03/01/24 00:35 03/03/24 04:30 7.5 MLS/HR Midazolam HCl 50 ml @ 1 mls/hr Q24H IV 03/01/24 06:00 03/03/24 06:50 5 MLS/HR Diagnostic Test (Pha) 1 strip Q6HR 03/01/24 12:00 03/03/24 05:45 1 STRIP Insulin Human Regular Q6HR SC 03/01/24 12:00 03/03/24 05:46 4 UNITS Dextrose 50 ml UD PRN IV 03/01/24 08:00 Vancomycin HCl 0 ml @ 0 mls/hr UD IV 03/01/24 11:15 Oseltamivir Phosphate 30 mg POSTDI PO 03/02/24 22:00 03/07/24 21:59 Meropenem 50 ml @ 17 mls/hr DAILY IV 03/02/24 10:00 03/03/24 10:10 17 MLS/HR Vasopressin 20 units/Sodium Chloride 100 ml @ 9 mls/hr Q11H7M IV 03/01/24 20:30 03/03/24 04:26 9 MLS/HR Ipratropium [place] 0.5 mg Q6HPRN PRN NEB 03/02/24 00:00 03/02/24 06:27 0.5 MG Amiodarone HCl 250 ml @ 16.667 mls/ hr Q15H IV 03/02/24 08:00 03/02/24 08:00 16.667 MLS/HR Levalbuterol HCl 0.625 mg Q6HPRN PRN NEB 03/02/24 06:00 03/02/24 06:27 0.625 MG Zirconium Oxide 10 gm TID PO 03/02/24 14:00 03/03/24 22:01 03/03/24 05:45 10 GM Pantoprazole Sodium 40 mg DAILY IV 03/03/24 10:00 03/03/24 10:10 40 MG Examination: LUNGS:Normal, CVS:Normal, MSK:Normal laboratory and microbiology Laboratory Tests 03/03/24 08:03 Test 03/03/24 08:03 Range/Units Serum Glucose 256 H 74-106 mg/dL Microbiology Date/Time Source Procedure Growth Status 03/01/24 00:55 Sputum Gram Stain - Final Resulted 03/01/24 00:55 Sputum Respiratory Culture - Preliminary Resulted 03/01/24 00:25 Blood Blood Culture - Preliminary NO GROWTH AFTER 48 HOURS OF INCUBATION. Resulted Problem List/Assessment/Plan Problem List/Assessment/Plan ESRD on dialysis Acute hypoxemic respiratory failure, intubated on ventilator Pneumonia HTN Sepsis Transaminitis Hyperphosphatemia REC: Continue with UF to 3 L as tolerated Epogen 10,000 IV post HD Fluids restriction IV Abx Pulmonary consult Will follow Plan discussed with: Other (Nurse) My Orders My Orders Orders - ENRRIQUE LANGLEY MD Procedure Category Date Status Time Albumin 25% (Albutein) PHA 03/03/24 In Process 11:45 ENRRIQUE LANGLEY MD Mar 03, 2024 12:30
--- NOTE | 2024-03-03 14:19 | DVHPN2 ---
Consult Progress Note Subjective Other Systems: Patient remains chemically sedated and mechanically ventilated Objective vital signs Vital Sign Date Time Temp Pulse Resp B/P (MAP) Pulse Ox O2 Delivery O2 Flow Rate FiO2 03/03/24 13:33 72 20 138/58 (84) 100 30 03/03/24 10:45 98.6 98.6 03/03/24 07:42 Mechanical Ventilator+ Total Intake and Output 03/02/24 03/02/24 03/03/24 15:00 23:00 07:00 Intake Total 50 ml 312.668 ml 335.335 ml Balance 50 ml 312.668 ml 335.335 ml medications Current Medications Medications Dose Ordered Sig/Ariela Route Start Time Stop Time Status Last Admin Dose Admin Propofol 100 ml @ 3 mls/hr Q24H IV 03/01/24 00:30 03/01/24 21:00 15 MLS/HR Fentanyl Citrate 250 ml @ 2.5 mls/hr Q24H IV 03/01/24 00:30 03/01/24 23:39 15 MLS/HR Norepinephrine Bitartrate 250 ml @ 3.75 mls/hr Q24H IV 03/01/24 00:35 03/03/24 04:30 7.5 MLS/HR Midazolam HCl 50 ml @ 1 mls/hr Q24H IV 03/01/24 06:00 03/03/24 06:50 5 MLS/HR Diagnostic Test (Pha) 1 strip Q6HR 03/01/24 12:00 03/03/24 12:00 1 STRIP Insulin Human Regular Q6HR SC 03/01/24 12:00 03/03/24 12:49 2 UNITS Dextrose 50 ml UD PRN IV 03/01/24 08:00 Vancomycin HCl 0 ml @ 0 mls/hr UD IV 03/01/24 11:15 Oseltamivir Phosphate 30 mg POSTDI PO 03/02/24 22:00 03/07/24 21:59 Meropenem 50 ml @ 17 mls/hr DAILY IV 03/02/24 10:00 03/03/24 10:10 17 MLS/HR Vasopressin 20 units/Sodium Chloride 100 ml @ 9 mls/hr Q11H7M IV 03/01/24 20:30 03/03/24 04:26 9 MLS/HR Ipratropium [place] 0.5 mg Q6HPRN PRN NEB 03/02/24 00:00 03/02/24 06:27 0.5 MG Amiodarone HCl 250 ml @ 16.667 mls/ hr Q15H IV 03/02/24 08:00 03/02/24 08:00 16.667 MLS/HR Levalbuterol HCl 0.625 mg Q6HPRN PRN NEB 03/02/24 06:00 03/02/24 06:27 0.625 MG Zirconium Oxide 10 gm TID PO 03/02/24 14:00 03/03/24 22:01 03/03/24 05:45 10 GM Pantoprazole Sodium 40 mg DAILY IV 03/03/24 10:00 03/03/24 10:10 40 MG Examination: GENERAL:Abnormal, LUNGS:Abnormal (Mechanically ventilated), CVS:Abnormal (Atrial fibrillation with bradycardia), NEURO:Abnormal (Chemically sedated) laboratory and microbiology Laboratory Tests 03/03/24 08:03 Test 03/03/24 08:03 Range/Units Serum Glucose 256 H 74-106 mg/dL Problem List/Assessment/Plan Problem List/Assessment/Plan Septic shock Influenza A positive NSTEMI type II secondary to above Unspecified atrial fibrillation (on Eliquis) Moderate tricuspid valve regurgitation History of hypertension now with hypotension Hyperlipidemia Thrombocytopenia Transaminitis End-stage renal disease on hemodialysis Type 2 diabetes mellitus Morbid obesity Plan/Recommendation (Dr. Christie): * Echocardiogram reveals EF 60% * [id number] VASc score: 4 points HAS-BLED score: 2 points * Initiate therapeutic Lovenox (renal dose), transition to NOAC when appropriate. Closely monitor H&H and plt count * Beta-ayleen when off of vasopressor therapy * Hold amiodarone given bradycardia * Vasopressors for hemodynamic support * Cardiac surveillance: Notify Cardiology for any ECG changes Patient seen and examined at bedside with Dr. Christie. Thank you for allowing us to care for this patient. Please call with any questions or concerns. Critical care time spent: 39 minutes This medical document was created using an electronic medical record system with voice recognition software and computerized dictation system. Although this document has been carefully reviewed, there might still be some phonetic and typographical errors. Occasional wrong-word or ``sound-alike substitutions may have occurred due to the inherent limitations of voice recognition software. These areas are purely typographical due to imperfections of the software programs and do not reflect any compromise in the patient's medical care. Please read the chart carefully and recognize, using context, where these substitutions have occurred. Plan discussed with: Other (Bedside RN) Date of Service: Mar 03, 2024 Billing Provider: ANTHONY CHRISTIE MD Common Visit Codes: [id number] CARE 30-74 MIN PILO BOWSER Mar 03, 2024 14:19
--- NOTE | 2024-03-03 14:28 | DVHPNRES ---
Progress Note Medical Necessity Reason Pt with a Central, PICC or Fol: Yes The following are medically ne: Central Line, Kaur Catheter Reason for kaur catheter: Strict I&O Objective vital signs Vital Sign Date Time Temp Pulse Resp B/P (MAP) Pulse Ox O2 Delivery O2 Flow Rate FiO2 03/03/24 13:33 72 20 138/58 (84) 100 30 03/03/24 10:45 98.6 98.6 03/03/24 07:42 Mechanical Ventilator+ Total Intake and Output 03/02/24 03/02/24 03/03/24 15:00 23:00 07:00 Intake Total 50 ml 312.668 ml 335.335 ml Balance 50 ml 312.668 ml 335.335 ml medications Current Medications Medications Dose Ordered Sig/Ariela Route Start Time Stop Time Status Last Admin Dose Admin Propofol 100 ml @ 3 mls/hr Q24H IV 03/01/24 00:30 03/01/24 21:00 15 MLS/HR Fentanyl Citrate 250 ml @ 2.5 mls/hr Q24H IV 03/01/24 00:30 03/01/24 23:39 15 MLS/HR Norepinephrine Bitartrate 250 ml @ 3.75 mls/hr Q24H IV 03/01/24 00:35 03/03/24 04:30 7.5 MLS/HR Midazolam HCl 50 ml @ 1 mls/hr Q24H IV 03/01/24 06:00 03/03/24 06:50 5 MLS/HR Diagnostic Test (Pha) 1 strip Q6HR 03/01/24 12:00 03/03/24 12:00 1 STRIP Insulin Human Regular Q6HR SC 03/01/24 12:00 03/03/24 12:49 2 UNITS Dextrose 50 ml UD PRN IV 03/01/24 08:00 Vancomycin HCl 0 ml @ 0 mls/hr UD IV 03/01/24 11:15 Oseltamivir Phosphate 30 mg POSTDI PO 03/02/24 22:00 03/07/24 21:59 Meropenem 50 ml @ 17 mls/hr DAILY IV 03/02/24 10:00 03/03/24 10:10 17 MLS/HR Vasopressin 20 units/Sodium Chloride 100 ml @ 9 mls/hr Q11H7M IV 03/01/24 20:30 03/03/24 04:26 9 MLS/HR Ipratropium [place] 0.5 mg Q6HPRN PRN NEB 03/02/24 00:00 03/02/24 06:27 0.5 MG Amiodarone HCl 250 ml @ 16.667 mls/ hr Q15H IV 03/02/24 08:00 03/02/24 08:00 16.667 MLS/HR Levalbuterol HCl 0.625 mg Q6HPRN PRN NEB 03/02/24 06:00 03/02/24 06:27 0.625 MG Zirconium Oxide 10 gm TID PO 03/02/24 14:00 03/03/24 22:01 03/03/24 05:45 10 GM Pantoprazole Sodium 40 mg DAILY IV 03/03/24 10:00 03/03/24 10:10 40 MG Enteral Nutritional Formula 1,000 ml 30ML/HR GT 03/03/24 14:30 UNV laboratory and microbiology Laboratory Tests 03/03/24 08:03 Test 03/03/24 08:03 Range/Units Serum Glucose 256 H 74-106 mg/dL Microbiology Date/Time Source Procedure Growth Status 03/01/24 00:55 Sputum Gram Stain - Final Resulted 03/01/24 00:55 Sputum Respiratory Culture - Preliminary Resulted 03/01/24 00:25 Blood Blood Culture - Preliminary NO GROWTH AFTER 48 HOURS OF INCUBATION. Resulted My Orders My Orders Orders - HUE SANDOVAL Procedure Category Date Status Time * Dietary Consult CONS 03/03/24 Transmitted 11:01 Respiratory Misc. RT 03/03/24 Transmitted Order 11:13 Urine Bacterial ELOISA 03/03/24 Logged Culture 11:42 Urinalysis LAB 03/03/24 Logged 11:42 Electrocardigram EKG 03/03/24 Logged 11:42 Nutritional PHA 03/03/24 Logged Supplements (Nepro 14:30 HUE SANDOVAL RESIDENT Mar 03, 2024 14:28
--- NOTE | 2024-03-03 14:39 | ECG ---
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
--- NOTE | 2024-03-03 19:01 | DVHPNRES ---
Progress Note Date Seen: Mar 03, 2024 Resident Creating Document: HUE SANDOVAL RESIDENT Medical Necessity Reason Pt with a Central, PICC or Fol: Yes The following are medically ne: Central Line, Kaur Catheter Reason for kaur catheter: Strict I&O Subjective Review of Systems This is a 74-year-old female patient with PMHx of diabetes mellitus type 2, ESRD on hemodialysis with [facility] Saturday//Saturday - makes urine, atrial fibrillation on Eliquis, hypertension, dyslipidemia, obesity who presented to the ER with a chief complaint of shortness of breath and flu-like symptoms. Patient lives with her daughter who reports that patient suddenly got sick on 03/01 and she has productive cough with phlegm and was choking on her phlegm, associated with shortness of breaths, nausea vomiting and diarrhea. Later the patient could not recognize and was altered therefore EMS was called and patient was found to be hypotensive and bradycardic into 40s. She received 1 dose of atropine EN route. Initially EKG at our facility showed AFib +prolonged QTC. Cardiology was consulted who recommended holding anticoagulation given the low platelet count and holding off beta ayleen as the patient required pressors. Patient was intubated on 03/01 and ABG shows anion gap metabolic acidosis with respiratory acidosis. Base deficit was-14. She was diagnosed with influenza a infection. Also started on oseltamivir 30 mg post hemodialysis, Lokelma, amiodarone. An echo was done which showed LVEF 60%, RV in LA was enlarged. Moderate TR. She received IV vancomycin and meropenem. Preliminary blood cultures are negative. Respiratory Gram stain shows Gram-positive cocci in chains. Head CT was done which was unremarkable. They were ultrasound shows fatty liver and right-sided pleural effusion. Previously admitted at this hospital with a complaint of fall in August 2023 Past surgical history: Neck surgery 4 years back Home medications unknown Patient seen and examined in ER bed 6. Amiodarone was DC as the patient was bradycardic into late 40s. ABG shows metabolic acidosis with compensation, base deficit is now -4. CPAP trial in the a.m.. EKG repeat shows atrial fibrillation with pulse rate 58 beats per minute. Objective vital signs Vital Sign Date Time Temp Pulse Resp B/P (MAP) Pulse Ox O2 Delivery O2 Flow Rate FiO2 03/03/24 18:00 98.1 67 20 110/51 (70) 100 98.1 03/03/24 15:39 30 03/03/24 07:42 Mechanical Ventilator+ Total Intake and Output 03/02/24 03/02/24 03/03/24 15:00 23:00 07:00 Intake Total 50 ml 312.668 ml 335.335 ml Balance 50 ml 312.668 ml 335.335 ml medications Current Medications Medications Dose Ordered Sig/Ariela Route Start Time Stop Time Status Last Admin Dose Admin Propofol 100 ml @ 3 mls/hr Q24H IV 03/01/24 00:30 03/01/24 21:00 15 MLS/HR Fentanyl Citrate 250 ml @ 2.5 mls/hr Q24H IV 03/01/24 00:30 03/01/24 23:39 15 MLS/HR Norepinephrine Bitartrate 250 ml @ 3.75 mls/hr Q24H IV 03/01/24 00:35 03/03/24 04:30 7.5 MLS/HR Midazolam HCl 50 ml @ 1 mls/hr Q24H IV 03/01/24 06:00 03/03/24 06:50 5 MLS/HR Diagnostic Test (Pha) 1 strip Q6HR 03/01/24 12:00 03/03/24 12:00 1 STRIP Insulin Human Regular Q6HR SC 03/01/24 12:00 03/03/24 18:26 2 UNITS Dextrose 50 ml UD PRN IV 03/01/24 08:00 Vancomycin HCl 0 ml @ 0 mls/hr UD IV 03/01/24 11:15 Oseltamivir Phosphate 30 mg POSTDI PO 03/02/24 22:00 03/07/24 21:59 Meropenem 50 ml @ 17 mls/hr DAILY IV 03/02/24 10:00 03/03/24 10:10 17 MLS/HR Vasopressin 20 units/Sodium Chloride 100 ml @ 9 mls/hr Q11H7M IV 03/01/24 20:30 03/03/24 04:26 9 MLS/HR Ipratropium [place] 0.5 mg Q6HPRN PRN NEB 03/02/24 00:00 03/02/24 06:27 0.5 MG Amiodarone HCl 250 ml @ 16.667 mls/ hr Q15H IV 03/02/24 08:00 03/02/24 08:00 16.667 MLS/HR Levalbuterol HCl 0.625 mg Q6HPRN PRN NEB 03/02/24 06:00 03/02/24 06:27 0.625 MG Zirconium Oxide 10 gm TID PO 03/02/24 14:00 03/03/24 22:01 03/03/24 14:24 10 GM Pantoprazole Sodium 40 mg DAILY IV 03/03/24 10:00 03/03/24 10:10 40 MG Enteral Nutritional Formula 1,000 ml 30ML/HR GT 03/03/24 14:30 Enoxaparin Sodium 90 mg DAILY SC 03/04/24 10:00 UNV Examination Elderly obese female patient lying in bed, intubated and mechanically ventilated General: Obese, afebrile, palor, mucosae are moist Cardiovascular: Irregular S1 and S2. No murmurs, gallops or rubs. No JVD elevation. No pedal edema Respiratory: Decreased basilar breath sounds. Saturating 98 on 30% FiO2. Abdomen: Soft, nontender, nondistended, hypoactive bowel sounds, no rebound tenderness, no organomegaly, no masses Genitourinary: Kaur seen draining 10 cc of red urine MSK/skin: Skin is dry and warm Neurological: Pupils are isocoric and reactive. laboratory and microbiology Laboratory Tests 03/03/24 08:03 Test 03/03/24 08:03 Range/Units Serum Glucose 256 H 74-106 mg/dL Microbiology Date/Time Source Procedure Growth Status 03/01/24 00:55 Sputum Gram Stain - Final Resulted 03/01/24 00:55 Sputum Respiratory Culture - Preliminary Resulted 03/01/24 00:25 Blood Blood Culture - Preliminary NO GROWTH AFTER 48 HOURS OF INCUBATION. Resulted Labs and/or images reviewed: Labs reviewed by me, Image(s) reviewed by me Problem List/Assessment/Plan Problem List/Assessment/Plan NEUROLOGY Altered level of consciousness due to hypoxic encephalopathy/bradycardia Head CT completed 03/01 unremarkable CARDIOVASCULAR Septic shock secondary to superimposed bacterial pneumonia on influenza a infection Hypertension Unspecified Atrial fibrillation on Zegcytb-OQICE-NOMh score 4, has bled score 2 Dyslipidemia Elevated troponins likely NSTEMI type 2 Bradycardia Moderate TR Echocardiogram completed, shows LVEF 60%. RV and LA enlarged. Moderate TR Cardiology consulted-initiate therapeutic Lovenox renal dosing, transition to NOAC when appropriate. Beta ayleen when off the pressor. Hold amiodarone given bradycardia Received amiodarone 0.5 mg/minute starting 03/02, currently on hold given the bradycardia RESPIRATORY Acute hypoxic respiratory failure secondary to septic shock due to bacterial pneumonia superimposed on influenza infection Intubated and mechanically ventilated Oseltamivir 30 mg postdialysis daily starting 03/02 Levalbuterol and ipratropium nebulized treatment CPAP trial in the a.m. GI Transaminitis Liver ultrasound shows fatty infiltration of a normal-sized liver. Right pleural effusion. /KIDNEY ESRD on hemodialysis with [facility]-Saturday//Saturday Bilateral small atrophic kidneys Nephrology consulted-recommended fluid restriction, Epogen 44413 IV post HD. Continue HD Lokelma t.i.d. starting 03/02 ENDO Diabetes mellitus type 2-hemoglobin A1c 6.8 On ISS METABOLIC Anion gap metabolic acidosis secondary to lactic acidosis Morbid obesity ID Septic shock secondary to superimposed bacterial pneumonia on influenza a infection Blood cultures negative preliminary Respiratory g stain shows Gram-positive cocci in chains Continue IV vancomycin 03/01 and meropenem starting 03/02 Urine culture pending HEM-ONCO Thrombocytopenia Monitor LINES Intubated 03/01 Left subclavian CVC placed 03/01 DRIPS Versed 5 Fentanyl 150 Levophed 4 Vasopressin 0.03 NUTRITION: Nepro started 03/03 30 mL per hour DVT: Enoxaparin 90 mg sc daily Goals of care/advance care planning; FULL CODE; discussed on 03/03 with the daughter over the phone call for 24 minutes. PUD prophylaxis: Pantoprazole 40 mg IV daily DVT prophylaxis: Enoxaparin 90 mg sc daily Plan discussed with daughter Dasia over the phone call - [phone] in which all questions have been answered Critical care time including review of the case, discussing with the patient's family and nurses excluding procedures: 87 minutes Case discussed with Dr. Chen. CPAP trial in the a.m. Plan discussed with: Patient, Daughter (Over the phone call) My Orders My Orders Orders - HUE SANDOVAL Procedure Category Date Status Time * Dietary Consult CONS 03/03/24 Transmitted 11:01 Respiratory Misc. RT 03/03/24 Transmitted Order 11:13 Urine Bacterial ELOISA 03/03/24 Logged Culture 11:42 Urinalysis LAB 03/03/24 Logged 11:42 Electrocardigram EKG 03/03/24 Resulted 11:42 Nutritional PHA 03/03/24 In Process Supplements (Nepro 14:30 Date of Service: Mar 03, 2024 Billing Provider: KATIANA CHEN MD Common Visit Codes: [id number] CARE 30-74 MIN, [id number] CARE-EACH +30MIN HUE SANDOVAL RESIDENT Mar 03, 2024 19:01 KATIANA CHEN MD Mar 04, 2024 14:51
[2024-03-04] VITALS (106 sets, daily range): BP systolic 80–150; BP diastolic 29–65; PULSE 52–80; RESP 9–21; TEMP 97.7–98.6; O2SAT 97–100
[2024-03-04 04:36] LABS: Basophils # (auto) 0 10 ^3/uL (0-0.2); Basophils % (auto) 0.2 % (0.0-2.0); Eosinophils # (auto) 0 10 ^3/uL (0-0.8); Eosinophils % (auto) 0.2 % (0.0-7.0); Hematocrit 42.4 % (36.0-46.0); Hemoglobin 13.9 g/dL (12.2-16.2); Lymphocytes # (auto) 0.5 10 ^3/uL (0.4-5.4); Lymphocytes % (auto) 4.4 % (10.0-50.0); Mean Corpuscular Hemoglobin 31.5 pg (28.0-32.0); Mean Corpuscular Hgb Conc. 32.7 g/dL (32.0-36.0); Mean Corpuscular Volume 96.3 fL (80.0-100.0); Monocytes # (auto) 0.4 10 ^3/uL (0-1.3); Monocytes % (auto) 3.4 % (0.0-12.0); Neutrophils # (auto) 10.7 10 ^3/uL (1.6-8.6); Neutrophils % (auto) 91.8 % (37.0-80.0); Nucleated Red Blood Cells % 0.4 %; Platelet Count (auto) 83 10^3/uL (140-450); Red Cell Distribution Width 14.6 % (11.8-14.3); White Blood Cell 11.6 10^3/uL (4.4-10.8)
[2024-03-04 04:54] LABS: Albumin 3.6 g/dL (3.2-4.8); Anion Gap 14 (5-15); BUN/Creatinine Ratio 7.4 (10.0-20.0); Carbon Dioxide 24 mmol/L (20-31); Chloride 99 mmol/L (98-107); Magnesium 2.5 mg/dL (1.6-2.6); Sodium 137 mmol/L (136-145)
[2024-03-04 04:55] LABS: Bilirubin, Total 0.8 mg/dL (0.2-1.0); Total Protein 6.3 g/dL (5.7-8.2)
[2024-03-04 05:22] LABS: Alanine Aminotransferase 594 U/L (7-40); Alkaline Phosphatase 188 U/L (46-116); Aspartate Aminotransferase 717 U/L (13-40); Blood Urea Nitrogen 43 mg/dL (9-23); Glucose 146 mg/dL (74-106)
--- NOTE | 2024-03-04 05:29 | DVH ---
CHEST RADIOGRAPH Indication: Follow up Technique: Single frontal view of the chest was obtained Comparison: XY CHEST PORTABLE on DOS: 03/03/24, XY CHEST PORTABLE on DOS: 03/02/24, XY CHEST PORTABLE on DOS: 03/01/24 IMPRESSION: There is cardiomegaly. Support lines and tubes appear unchanged in position. The right central venous catheter tip is likely in the right atrium, unchanged. Consider retraction for ideal positioning. Patchy airspace opacities in the right lung appear similar to mildly improved which may represent vas cular congestion versus pneumonia. No discrete pneumothorax.
[2024-03-04] MEDS ORDERED: ENOXAPARIN SOD 100 MG/1 ML SYRINGE SC SCH (10:00)
[2024-03-04 11:21] LABS: Base Excess 0.3 mmol/L (-2.0-3.0)
[2024-03-04] MEDS: NOREPINEPHRINE 8 MG/250ML KIT 250 ML IV SCH (11:32)
--- NOTE | 2024-03-04 11:50 | DVHPN2 ---
Progress Note Date Seen: Mar 04, 2024 Medical Necessity Reason Pt with a Central, PICC or Fol: Yes The following are medically ne: Central Line, Kaur Catheter Reason for kaur catheter: Strict I&O Subjective Patient reports: Other Review of Systems: RESPIRATORY:Abnormal Objective vital signs Vital Sign Date Time Temp Pulse Resp B/P (MAP) Pulse Ox O2 Delivery O2 Flow Rate FiO2 03/04/24 11:32 117/49 03/04/24 11:31 63 20 99 30 03/04/24 09:47 Mechanical Ventilator+ 03/04/24 09:30 98.1 208.6 Total Intake and Output 03/03/24 03/03/24 03/04/24 15:00 23:00 07:00 Intake Total 284.8075 ml 216.0 ml 184.374 ml Balance 284.8075 ml 216.0 ml 184.374 ml medications Current Medications Medications Dose Ordered Sig/Ariela Route Start Time Stop Time Status Last Admin Dose Admin Propofol 100 ml @ 3 mls/hr Q24H IV 03/01/24 00:30 03/01/24 21:00 15 MLS/HR Fentanyl Citrate 250 ml @ 2.5 mls/hr Q24H IV 03/01/24 00:30 03/03/24 23:17 15 MLS/HR Midazolam HCl 50 ml @ 1 mls/hr Q24H IV 03/01/24 06:00 03/04/24 05:55 2 MLS/HR Diagnostic Test (Pha) 1 strip Q6HR 03/01/24 12:00 03/04/24 05:55 1 STRIP Insulin Human Regular Q6HR SC 03/01/24 12:00 03/03/24 18:26 2 UNITS Dextrose 50 ml UD PRN IV 03/01/24 08:00 Vancomycin HCl 0 ml @ 0 mls/hr UD IV 03/01/24 11:15 Oseltamivir Phosphate 30 mg POSTDI PO 03/02/24 22:00 03/07/24 21:59 Meropenem 50 ml @ 17 mls/hr DAILY IV 03/02/24 10:00 03/04/24 08:17 17 MLS/HR Vasopressin 20 units/Sodium Chloride 100 ml @ 9 mls/hr Q11H7M IV 03/01/24 20:30 03/03/24 04:26 9 MLS/HR Ipratropium [place] 0.5 mg Q6HPRN PRN NEB 03/02/24 00:00 03/02/24 06:27 0.5 MG Amiodarone HCl 250 ml @ 16.667 mls/ hr Q15H IV 03/02/24 08:00 03/02/24 08:00 16.667 MLS/HR Levalbuterol HCl 0.625 mg Q6HPRN PRN NEB 03/02/24 06:00 03/02/24 06:27 0.625 MG Pantoprazole Sodium 40 mg DAILY IV 03/03/24 10:00 03/04/24 08:16 40 MG Enteral Nutritional Formula 1,000 ml 30ML/HR GT 03/03/24 14:30 Enoxaparin Sodium 90 mg DAILY SC 03/04/24 10:00 UNV Norepinephrine Bitartrate 250 ml @ 1.875 mls/ hr Q24H IV 03/04/24 10:45 03/04/24 11:32 5.625 MLS/HR Examination: GENERAL:Abnormal, LUNGS:Abnormal, CVS:Abnormal laboratory and microbiology Laboratory Tests 03/04/24 04:25 Test 03/04/24 04:25 Range/Units Serum Glucose 146 H 74-106 mg/dL Microbiology Date/Time Source Procedure Growth Status 03/02/24 19:24 Blood Blood Culture - Preliminary NO GROWTH AFTER 24 HOURS OF INCUBATION. Resulted 03/01/24 00:55 Sputum Gram Stain - Final Resulted 03/01/24 00:55 Sputum Respiratory Culture - Preliminary Resulted Problem List/Assessment/Plan Problem List/Assessment/Plan ESRD on dialysis Acute hypoxemic respiratory failure, intubated on ventilator Pneumonia HTN Sepsis Transaminitis Hyperphosphatemia HD tomorrow increase UF goal Epogen 10,000 IV post HD Fluids restriction IV Abx Pulmonary consult Will follow Plan discussed with: BO Goldman MD Mar 04, 2024 11:50
[2024-03-04] MEDS: VANCOMYCIN 500mg/100mL 100 ML IV ONE (15:19)
--- NOTE | 2024-03-04 18:47 | DVHPNRES ---
Progress Note Date Seen: Mar 04, 2024 Resident Creating Document: HUE SANDOVAL RESIDENT Medical Necessity Reason Pt with a Central, PICC or Fol: Yes The following are medically ne: Central Line, Kaur Catheter Reason for kaur catheter: Strict I&O Subjective Review of Systems This is a 74-year-old female patient with PMHx of diabetes mellitus type 2, ESRD on hemodialysis with [facility] Saturday//Saturday - makes urine, atrial fibrillation on Eliquis, hypertension, dyslipidemia, obesity who presented to the ER with a chief complaint of shortness of breath and flu-like symptoms. Patient lives with her daughter who reports that patient suddenly got sick on 03/01 and she has productive cough with phlegm and was choking on her phlegm, associated with shortness of breaths, nausea vomiting and diarrhea. Later the patient could not recognize and was altered therefore EMS was called and patient was found to be hypotensive and bradycardic into 40s. She received 1 dose of atropine EN route. Initially EKG at our facility showed AFib +prolonged QTC. Cardiology was consulted who recommended holding anticoagulation given the low platelet count and holding off beta ayleen as the patient required pressors. Patient was intubated on 03/01 and ABG shows anion gap metabolic acidosis with respiratory acidosis. Base deficit was-14. She was diagnosed with influenza a infection. Also started on oseltamivir 30 mg post hemodialysis, Lokelma, amiodarone. An echo was done which showed LVEF 60%, RV in LA was enlarged. Moderate TR. She received IV vancomycin and meropenem. Preliminary blood cultures are negative. Respiratory Gram stain shows Gram-positive cocci in chains. Head CT was done which was unremarkable. They were ultrasound shows fatty liver and right-sided pleural effusion. Previously admitted at this hospital with a complaint of fall in August 2023 Past surgical history: Neck surgery 4 years back Home medications unknown 03/03-Patient seen and examined in ER bed 6. Amiodarone was DC as the patient was bradycardic into late 40s. ABG shows metabolic acidosis with compensation, base deficit is now -4. CPAP trial in the a.m.. EKG repeat shows atrial fibrillation with pulse rate 58 beats per minute. 03/04 - patient seen and examined at the bedside. Intermittent bradycardic into 50s. Telemetry reviewed, shows atrial fibrillation, heart rate going low as 45. Completed CPAP trial today, patient is not alert. CPAP trial tomorrow. Discontinue Lovenox. Currently on Levophed 4 Start Precedex if needed, otherwise keep minimally sedated. Objective vital signs Vital Sign Date Time Temp Pulse Resp B/P (MAP) Pulse Ox O2 Delivery O2 Flow Rate FiO2 03/04/24 18:15 97.7 55 20 100/47 (64) 100 207.9 03/04/24 17:38 Mechanical Ventilator+ 30 30 Total Intake and Output 03/03/24 03/03/24 03/04/24 15:00 23:00 07:00 Intake Total 284.8075 ml 216.0 ml 184.374 ml Balance 284.8075 ml 216.0 ml 184.374 ml medications Current Medications Medications Dose Ordered Sig/Ariela Route Start Time Stop Time Status Last Admin Dose Admin Propofol 100 ml @ 3 mls/hr Q24H IV 03/01/24 00:30 03/01/24 21:00 15 MLS/HR Fentanyl Citrate 250 ml @ 2.5 mls/hr Q24H IV 03/01/24 00:30 03/03/24 23:17 15 MLS/HR Midazolam HCl 50 ml @ 1 mls/hr Q24H IV 03/01/24 06:00 03/04/24 05:55 2 MLS/HR Diagnostic Test (Pha) 1 strip Q6HR 03/01/24 12:00 03/04/24 18:25 1 STRIP Insulin Human Regular Q6HR SC 03/01/24 12:00 03/03/24 18:26 2 UNITS Dextrose 50 ml UD PRN IV 03/01/24 08:00 Vancomycin HCl 0 ml @ 0 mls/hr UD IV 03/01/24 11:15 Oseltamivir Phosphate 30 mg POSTDI PO 03/02/24 22:00 03/07/24 21:59 Meropenem 50 ml @ 17 mls/hr DAILY IV 03/02/24 10:00 03/04/24 08:17 17 MLS/HR Vasopressin 20 units/Sodium Chloride 100 ml @ 9 mls/hr Q11H7M IV 03/01/24 20:30 03/03/24 04:26 9 MLS/HR Ipratropium [place] 0.5 mg Q6HPRN PRN NEB 03/02/24 00:00 03/02/24 06:27 0.5 MG Amiodarone HCl 250 ml @ 16.667 mls/ hr Q15H IV 03/02/24 08:00 03/02/24 08:00 16.667 MLS/HR Levalbuterol HCl 0.625 mg Q6HPRN PRN NEB 03/02/24 06:00 03/02/24 06:27 0.625 MG Pantoprazole Sodium 40 mg DAILY IV 03/03/24 10:00 03/04/24 08:16 40 MG Enteral Nutritional Formula 1,000 ml 30ML/HR GT 03/03/24 14:30 Norepinephrine Bitartrate 250 ml @ 1.875 mls/ hr Q24H IV 03/04/24 10:45 03/04/24 11:32 5.625 MLS/HR Dexmedetomidine HCl 400 mcg/ Dextrose 100 ml @ 4.545 mls/ hr Q22H1M IV 03/04/24 15:30 Enteral Nutritional Formula 1,000 ml 30ML/HR GT 03/04/24 15:30 Examination Elderly obese female patient lying in bed, intubated and mechanically ventilated, RASS -4 General: Obese, afebrile, palor, mucosae are moist Cardiovascular: Irregular S1 and S2. No murmurs, gallops or rubs. No JVD elevation. No pedal edema Respiratory: Decreased basilar breath sounds. Saturating 98 on 30% FiO2. Abdomen: Soft, nontender, nondistended, hypoactive bowel sounds, no rebound tenderness, no organomegaly, no masses. Stage I decubitus perianal seen. Genitourinary: Kaur seen draining 15 cc of red urine MSK/skin: Skin is dry and warm Neurological: Pupils are isocoric and reactive. laboratory and microbiology Laboratory Tests 03/04/24 04:25 Test 03/04/24 04:25 Range/Units Serum Glucose 146 H 74-106 mg/dL Microbiology Date/Time Source Procedure Growth Status 03/02/24 19:24 Blood Blood Culture - Preliminary NO GROWTH AFTER 24 HOURS OF INCUBATION. Resulted 03/01/24 00:55 Sputum Gram Stain - Final Complete 03/01/24 00:55 Sputum Respiratory Culture - Final Complete Labs and/or images reviewed: Labs reviewed by me, Image(s) reviewed by me Problem List/Assessment/Plan Problem List/Assessment/Plan NEUROLOGY Altered level of consciousness due to hypoxic encephalopathy/bradycardia Head CT completed 03/01 unremarkable CARDIOVASCULAR Septic shock secondary to superimposed bacterial pneumonia on influenza a infection Hypertension Unspecified Atrial fibrillation on [id number] score 4, has bled score 2 Dyslipidemia Elevated troponins likely NSTEMI type 2 Bradycardia Moderate TR Echocardiogram completed, shows LVEF 60%. RV and LA enlarged. Moderate TR Cardiology consulted-initiate therapeutic Lovenox renal dosing, transition to NOAC when appropriate. Beta ayleen when off the pressor. Hold amiodarone given bradycardia Received amiodarone 0.5 mg/minute starting 03/02, currently on hold given the bradycardia RESPIRATORY Acute hypoxic respiratory failure secondary to septic shock due to bacterial pneumonia superimposed on influenza infection Intubated and mechanically ventilated Oseltamivir 30 mg postdialysis daily starting 03/02 Levalbuterol and ipratropium nebulized treatment Completed CPAP trial 03/04. Patient not alert CPAP trial in the a.m. GI Transaminitis History of cholecystectomy Downtrending Liver ultrasound shows fatty infiltration of a normal-sized liver. Right pleural effusion. /KIDNEY ESRD on hemodialysis with [facility]-Saturday//Saturday Bilateral small atrophic kidneys Nephrology consulted-recommended fluid restriction, Epogen 89133 IV post HD. Continue HD Lokelma t.i.d. starting 03/02 ENDO Diabetes mellitus type 2-hemoglobin A1c 6.8 On ISS METABOLIC Anion gap metabolic acidosis secondary to lactic acidosis Morbid obesity ID Septic shock secondary to superimposed bacterial pneumonia on influenza a infection Blood cultures negative preliminary Respiratory g stain shows Gram-positive cocci in chains Continue IV vancomycin 03/01 and meropenem starting 03/02 Urine culture pending HEM-ONCO Thrombocytopenia Monitor LINES Intubated 03/01 Left subclavian CVC placed 03/01 DRIPS Versed 02 Fentanyl 100 Levophed 4 Vasopressin 0 NUTRITION: Nepro started 03/03 30 mL per hour DVT: On hold given hematuria and low platelets Goals of care/advance care planning; FULL CODE; discussed on 03/03 with the daughter over the phone call for 24 minutes. PUD prophylaxis: Pantoprazole 40 mg IV daily DVT prophylaxis: Enoxaparin 90 mg sc daily Plan discussed with daughter Dasia over the phone call - [phone] in which all questions have been answered Critical care time including review of the case,, CPAP trial, discussing with the patient's family and nurses excluding procedures: 87 minutes Case discussed with Dr. Chen. CPAP trial in the a.m. Plan discussed with: Patient, Daughter (At the bedside) My Orders My Orders Orders - HUE SANDOVAL Procedure Category Date Status Time Cpap Trial For Am ORDERS 03/03/24 Transmitted 19:03 Abg W/ Co-Ox RT 03/04/24 Logged 04:00 Chest Xray 1 View XY 03/04/24 Resulted 04:00 Norepinephrine 8 PHA 03/04/24 In Process Mg/250ml Kit 10:45 Dietary Evaluation Review Comments: TF Nepro 30ml/hr provides Pt's needs 100% for protein, 127% of energy. advanc eto Renal standard diet when pt is off vent and pass speech eval. Expected Outcomes/Goals: diet to advance Date of Service: Mar 04, 2024 Billing Provider: KATIANA CHEN MD Common Visit Codes: [id number] CARE 30-74 MIN, [id number] CARE-EACH +30MIN HUE SANDOVAL RESIDENT Mar 04, 2024 18:47 KATIANA CHEN MD Mar 05, 2024 10:23
[2024-03-05] VITALS (61 sets, daily range): BP systolic 85–130; BP diastolic 33–89; PULSE 59–93; RESP 13–21; TEMP 98.4–100; O2SAT 94–100
[2024-03-05 03:05] LABS: Basophils # (auto) 0 10 ^3/uL (0-0.2); Basophils % (auto) 0.3 % (0.0-2.0); Eosinophils # (auto) 0 10 ^3/uL (0-0.8); Eosinophils % (auto) 0.1 % (0.0-7.0); Hemoglobin 13.5 g/dL (12.2-16.2); Lymphocytes # (auto) 0.4 10 ^3/uL (0.4-5.4); Lymphocytes % (auto) 5.3 % (10.0-50.0); Mean Corpuscular Hemoglobin 30.9 pg (28.0-32.0); Mean Corpuscular Volume 96.6 fL (80.0-100.0); Monocytes # (auto) 0.3 10 ^3/uL (0-1.3); Monocytes % (auto) 3.5 % (0.0-12.0); Neutrophils % (auto) 90.8 % (37.0-80.0); Nucleated Red Blood Cells % 0.4 %; Platelet Count (auto) 72 10^3/uL (140-450); Red Blood Cells 4.35 10^6/uL (4.0-5.20); Red Cell Distribution Width 14.7 % (11.8-14.3); White Blood Cell 7.7 10^3/uL (4.4-10.8)
[2024-03-05 03:22] LABS: Alanine Aminotransferase 392 U/L (7-40); Albumin 3.3 g/dL (3.2-4.8); Alkaline Phosphatase 173 U/L (46-116); Anion Gap 17 (5-15); Aspartate Aminotransferase 375 U/L (13-40); Blood Urea Nitrogen 60 mg/dL (9-23); Calcium 8.8 mg/dL (8.7-10.4); Carbon Dioxide 22 mmol/L (20-31); Chloride 99 mmol/L (98-107); Glucose 138 mg/dL (74-106); Magnesium 2.3 mg/dL (1.6-2.6); Potassium 4.6 mmol/L (3.5-5.1); Sodium 138 mmol/L (136-145)
[2024-03-05 03:23] LABS: Bilirubin, Total 0.7 mg/dL (0.2-1.0); Total Protein 5.9 g/dL (5.7-8.2)
[2024-03-05 05:10] LABS: Urine Bacteria FEW /hpf (None Seen); Urine Blood 3+ /uL (Negative); Urine Clarity Ex.Turbid (Clear); Urine Color Colorless (Yellow); Urine Protein, UAD 2+ (Negative); Urine Specific Gravity 1.006 (1.001-1.035); Urine Squamous Epithelial Cell None Seen /hpf (<5); Urine Urobilinogen Normal (Negative); Urine WBC 62 /hpf (0 - 5); Urine pH 7.5 (5.0-9.0)
--- NOTE | 2024-03-05 06:36 | DVH ---
CHEST RADIOGRAPH Indication: Follow up Technique: Single frontal view of the chest was obtained Comparison: XY CHEST XRAY 1 VIEW on DOS: 03/04/24 FINDINGS: Lines and Tubes: The endotracheal tube terminates 3.2 cm above the sia. Right central venous cath eter terminates in the superior vena cava. The enteric tube terminates in the stomach. Lungs: Patchy bilateral opacities. Pleura: No effusion. No pneumothorax. Cardiomediastinal contours: Cardiomegaly. Bones: No acute osseous abnormality. IMPRESSION: 1. Stable position of the support lines and tubes. 2. Patchy bilateral opacities similar to prior study.
[2024-03-05 06:51] LABS: Base Excess -1.8 mmol/L (-2.0-3.0)
[2024-03-05] MEDS: SODIUM CHL 0.9% 1000 ML BAG XX ONE (07:00)
--- NOTE | 2024-03-05 09:47 | DVHPN2 ---
Consult Progress Note Subjective Other Systems: Patient remains in atrial fibrillation with controlled rate. Platelet count today 72. Objective vital signs Vital Sign Date Time Temp Pulse Resp B/P (MAP) Pulse Ox O2 Delivery O2 Flow Rate FiO2 03/05/24 08:45 99.0 67 18 125/57 (79) 100 99.0 03/05/24 07:54 30 03/05/24 05:53 Mechanical Ventilator+ Total Intake and Output 03/04/24 03/04/24 03/05/24 15:00 23:00 07:00 Intake Total 96.625 ml 31.875 ml 30.00 ml Output Total 0 ml 5 ml Balance 96.625 ml 31.875 ml 25.00 ml medications Current Medications Medications Dose Ordered Sig/Ariela Route Start Time Stop Time Status Last Admin Dose Admin Propofol 100 ml @ 3 mls/hr Q24H IV 03/01/24 00:30 03/01/24 21:00 15 MLS/HR Fentanyl Citrate 250 ml @ 2.5 mls/hr Q24H IV 03/01/24 00:30 03/03/24 23:17 15 MLS/HR Midazolam HCl 50 ml @ 1 mls/hr Q24H IV 03/01/24 06:00 03/04/24 05:55 2 MLS/HR Diagnostic Test (Pha) 1 strip Q6HR 03/01/24 12:00 03/05/24 06:00 1 STRIP Insulin Human Regular Q6HR SC 03/01/24 12:00 03/04/24 23:53 2 UNITS Dextrose 50 ml UD PRN IV 03/01/24 08:00 Vancomycin HCl 0 ml @ 0 mls/hr UD IV 03/01/24 11:15 Oseltamivir Phosphate 30 mg POSTDI PO 03/02/24 22:00 03/07/24 21:59 Meropenem 50 ml @ 17 mls/hr DAILY IV 03/02/24 10:00 03/04/24 08:17 17 MLS/HR Vasopressin 20 units/Sodium Chloride 100 ml @ 9 mls/hr Q11H7M IV 03/01/24 20:30 03/03/24 04:26 9 MLS/HR Ipratropium [place] 0.5 mg Q6HPRN PRN NEB 03/02/24 00:00 03/05/24 05:53 0.5 MG Amiodarone HCl 250 ml @ 16.667 mls/ hr Q15H IV 03/02/24 08:00 03/02/24 08:00 16.667 MLS/HR Levalbuterol HCl 0.625 mg Q6HPRN PRN NEB 03/02/24 06:00 03/05/24 05:53 0.625 MG Pantoprazole Sodium 40 mg DAILY IV 03/03/24 10:00 03/04/24 08:16 40 MG Enteral Nutritional Formula 1,000 ml 30ML/HR GT 03/03/24 14:30 Norepinephrine Bitartrate 250 ml @ 1.875 mls/ hr Q24H IV 03/04/24 10:45 03/04/24 11:32 5.625 MLS/HR Dexmedetomidine HCl 400 mcg/ Dextrose 100 ml @ 4.545 mls/ hr Q22H1M IV 03/04/24 15:30 Enteral Nutritional Formula 1,000 ml 30ML/HR GT 03/04/24 15:30 Examination: GENERAL:Abnormal, LUNGS:Abnormal (Mechanically ventilated), CVS:Normal, NEURO:Abnormal (Off sedation, cough and gag reflex intact) laboratory and microbiology Laboratory Tests 03/05/24 02:14 Test 03/05/24 02:14 Range/Units Serum Glucose 138 H 74-106 mg/dL Problem List/Assessment/Plan Problem List/Assessment/Plan Septic shock Influenza A positive NSTEMI type II secondary to above Unspecified atrial fibrillation (on Eliquis) Moderate tricuspid valve regurgitation History of hypertension now with hypotension Hyperlipidemia Thrombocytopenia Transaminitis End-stage renal disease on hemodialysis Type 2 diabetes mellitus Morbid obesity Plan/Recommendation (Dr. Christie): * Echocardiogram reveals EF 60% * [id number] VASc score: 4 points HAS-BLED score: 2 points * Hold anticoagulation given low platelet count. Initiate NOAC (Eliquis) when appropriate * Beta-ayleen when off of vasopressor therapy * Hold amiodarone given bradycardia * Vasopressors for hemodynamic support * Monitor H&H and platelet count * DVT/VTE prophylaxis: SCD's in the meantime * Cardiac surveillance: Notify Cardiology for any ECG changes Patient seen and examined at bedside with Dr. Christie. There is no further inpatient cardiac workup indicated at this time. Please reconsult if needed. Thank you for allowing us to care for this patient. Please call with any questions or concerns. Critical care time spent: 37 minutes This medical document was created using an electronic medical record system with voice recognition software and computerized dictation system. Although this document has been carefully reviewed, there might still be some phonetic and typographical errors. Occasional wrong-word or ``sound-alike substitutions may have occurred due to the inherent limitations of voice recognition software. These areas are purely typographical due to imperfections of the software programs and do not reflect any compromise in the patient's medical care. Please read the chart carefully and recognize, using context, where these substitutions have occurred. Plan discussed with: Other (Bedside RN) Dietary Evaluation Review Comments: TF Nepro 30ml/hr provides Pt's needs 100% for protein, 127% of energy. advanc eto Renal standard diet when pt is off vent and pass speech eval. Expected Outcomes/Goals: diet to advance Date of Service: Mar 05, 2024 Billing Provider: ANTHONY CHRISTIE MD Common Visit Codes: [id number] CARE 30-74 MIN PILO BOWSER Mar 05, 2024 09:47
--- NOTE | 2024-03-05 12:19 | DVHPN2 ---
Progress Note Date Seen: Mar 05, 2024 Medical Necessity Reason Pt with a Central, PICC or Fol: Yes The following are medically ne: Central Line, Kaur Catheter Reason for kaur catheter: Strict I&O Subjective Patient reports: Other (Intubated Hemodialysis nurse at bedside tolerated hemodialysis treatment required a little bit of Levophed) Review of Systems: RESPIRATORY:Abnormal Objective vital signs Vital Sign Date Time Temp Pulse Resp B/P (MAP) Pulse Ox O2 Delivery O2 Flow Rate FiO2 03/05/24 10:06 69 20 97/49 (65) 99 30 03/05/24 08:45 99.0 99.0 03/05/24 07:30 Mechanical Ventilator+ Total Intake and Output 03/04/24 03/04/24 03/05/24 15:00 23:00 07:00 Intake Total 96.625 ml 31.875 ml 30.00 ml Output Total 0 ml 5 ml Balance 96.625 ml 31.875 ml 25.00 ml medications Current Medications Medications Dose Ordered Sig/Ariela Route Start Time Stop Time Status Last Admin Dose Admin Propofol 100 ml @ 3 mls/hr Q24H IV 03/01/24 00:30 03/01/24 21:00 15 MLS/HR Fentanyl Citrate 250 ml @ 2.5 mls/hr Q24H IV 03/01/24 00:30 03/03/24 23:17 15 MLS/HR Midazolam HCl 50 ml @ 1 mls/hr Q24H IV 03/01/24 06:00 03/04/24 05:55 2 MLS/HR Diagnostic Test (Pha) 1 strip Q6HR 03/01/24 12:00 03/05/24 06:00 1 STRIP Insulin Human Regular Q6HR SC 03/01/24 12:00 03/04/24 23:53 2 UNITS Dextrose 50 ml UD PRN IV 03/01/24 08:00 Vancomycin HCl 0 ml @ 0 mls/hr UD IV 03/01/24 11:15 Oseltamivir Phosphate 30 mg POSTDI PO 03/02/24 22:00 03/07/24 21:59 Meropenem 50 ml @ 17 mls/hr DAILY IV 03/02/24 10:00 03/05/24 09:48 17 MLS/HR Vasopressin 20 units/Sodium Chloride 100 ml @ 9 mls/hr Q11H7M IV 03/01/24 20:30 03/03/24 04:26 9 MLS/HR Ipratropium [place] 0.5 mg Q6HPRN PRN NEB 03/02/24 00:00 03/05/24 05:53 0.5 MG Amiodarone HCl 250 ml @ 16.667 mls/ hr Q15H IV 03/02/24 08:00 03/02/24 08:00 16.667 MLS/HR Levalbuterol HCl 0.625 mg Q6HPRN PRN NEB 03/02/24 06:00 03/05/24 05:53 0.625 MG Pantoprazole Sodium 40 mg DAILY IV 03/03/24 10:00 03/05/24 09:48 40 MG Enteral Nutritional Formula 1,000 ml 30ML/HR GT 03/03/24 14:30 Norepinephrine Bitartrate 250 ml @ 1.875 mls/ hr Q24H IV 03/04/24 10:45 03/04/24 11:32 5.625 MLS/HR Dexmedetomidine HCl 400 mcg/ Dextrose 100 ml @ 4.545 mls/ hr Q22H1M IV 03/04/24 15:30 Enteral Nutritional Formula 1,000 ml 30ML/HR GT 03/04/24 15:30 Examination: GENERAL:Abnormal, LUNGS:Abnormal, ABDOMEN:Normal laboratory and microbiology Laboratory Tests 03/05/24 02:14 Test 03/05/24 02:14 Range/Units Serum Glucose 138 H 74-106 mg/dL Microbiology Date/Time Source Procedure Growth Status 03/02/24 19:24 Blood Blood Culture - Preliminary NO GROWTH AFTER 48 HOURS OF INCUBATION. Resulted 03/01/24 00:55 Sputum Gram Stain - Final Complete 03/01/24 00:55 Sputum Respiratory Culture - Final Complete Problem List/Assessment/Plan Problem List/Assessment/Plan ESRD on dialysis Acute hypoxemic respiratory failure, intubated on ventilator Pneumonia HTN Sepsis Transaminitis Hyperphosphatemia HD today Epogen 10,000 IV post HD Fluids restriction IV Abx Pulmonary consult Tentative plan for then weaning Plan discussed with: Other Dietary Evaluation Review Comments: TF Nepro 30ml/hr provides Pt's needs 100% for protein, 127% of energy. advanc eto Renal standard diet when pt is off vent and pass speech eval. Expected Outcomes/Goals: diet to advance BO CARRINGTON MD Mar 05, 2024 12:19
[2024-03-05] MEDS: Nepro With Carb Steady 1 Liter Bottle GT SCH (12:30)
--- NOTE | 2024-03-05 19:31 | DVHPNRES ---
Progress Note Date Seen: Mar 05, 2024 Resident Creating Document: HUE SANDOVAL RESIDENT Medical Necessity Reason Pt with a Central, PICC or Fol: Yes The following are medically ne: Central Line, Kaur Catheter Reason for kaur catheter: Strict I&O Subjective Review of Systems This is a 74-year-old female patient with PMHx of diabetes mellitus type 2, ESRD on hemodialysis with [facility] Saturday//Saturday - makes urine, atrial fibrillation on Eliquis, hypertension, dyslipidemia, obesity who presented to the ER with a chief complaint of shortness of breath and flu-like symptoms. Patient lives with her daughter who reports that patient suddenly got sick on 03/01 and she has productive cough with phlegm and was choking on her phlegm, associated with shortness of breaths, nausea vomiting and diarrhea. Later the patient could not recognize and was altered therefore EMS was called and patient was found to be hypotensive and bradycardic into 40s. She received 1 dose of atropine EN route. Initially EKG at our facility showed AFib +prolonged QTC. Cardiology was consulted who recommended holding anticoagulation given the low platelet count and holding off beta ayleen as the patient required pressors. Patient was intubated on 03/01 and ABG shows anion gap metabolic acidosis with respiratory acidosis. Base deficit was-14. She was diagnosed with influenza a infection. Also started on oseltamivir 30 mg post hemodialysis, Lokelma, amiodarone. An echo was done which showed LVEF 60%, RV in LA was enlarged. Moderate TR. She received IV vancomycin and meropenem. Preliminary blood cultures are negative. Respiratory Gram stain shows Gram-positive cocci in chains. Head CT was done which was unremarkable. They were ultrasound shows fatty liver and right-sided pleural effusion. Previously admitted at this hospital with a complaint of fall in August 2023 Past surgical history: Neck surgery 4 years back Home medications unknown 03/03-Patient seen and examined in ER bed 6. Amiodarone was DC as the patient was bradycardic into late 40s. ABG shows metabolic acidosis with compensation, base deficit is now -4. CPAP trial in the a.m.. EKG repeat shows atrial fibrillation with pulse rate 58 beats per minute. 03/04 - patient seen and examined at the bedside. Intermittent bradycardic into 50s. Telemetry reviewed, shows atrial fibrillation, heart rate going low as 45. Completed CPAP trial today, patient is not alert. CPAP trial tomorrow. Discontinue Lovenox. Currently on Levophed 4 Start Precedex if needed, otherwise keep minimally sedated. 03/05 - overnight temperature 99.0 F. heart rate goes to 54 beats per minute, telemetry reviewed, shows irregular rhythm, rate in 50s. Hemodialysis completed today, 2 L . Prelim blood culture negative. Respiratory culture negative. Anion gap increased to 17.. Respiratory culture. Objective vital signs Vital Sign Date Time Temp Pulse Resp B/P (MAP) Pulse Ox O2 Delivery O2 Flow Rate FiO2 03/05/24 19:00 99.3 81 18 97/48 (64) 100 99.3 03/05/24 16:00 30 03/05/24 07:30 Mechanical Ventilator+ Total Intake and Output 03/04/24 03/04/24 03/05/24 15:00 23:00 07:00 Intake Total 96.625 ml 31.875 ml 30.00 ml Output Total 0 ml 5 ml Balance 96.625 ml 31.875 ml 25.00 ml medications Current Medications Medications Dose Ordered Sig/Ariela Route Start Time Stop Time Status Last Admin Dose Admin Propofol 100 ml @ 3 mls/hr Q24H IV 03/01/24 00:30 03/01/24 21:00 15 MLS/HR Fentanyl Citrate 250 ml @ 2.5 mls/hr Q24H IV 03/01/24 00:30 03/03/24 23:17 15 MLS/HR Midazolam HCl 50 ml @ 1 mls/hr Q24H IV 03/01/24 06:00 03/04/24 05:55 2 MLS/HR Diagnostic Test (Pha) 1 strip Q6HR 03/01/24 12:00 03/05/24 18:00 1 STRIP Insulin Human Regular Q6HR SC 03/01/24 12:00 03/04/24 23:53 2 UNITS Dextrose 50 ml UD PRN IV 03/01/24 08:00 Vancomycin HCl 0 ml @ 0 mls/hr UD IV 03/01/24 11:15 Oseltamivir Phosphate 30 mg POSTDI PO 03/02/24 22:00 03/07/24 21:59 Meropenem 50 ml @ 17 mls/hr DAILY IV 03/02/24 10:00 03/05/24 09:48 17 MLS/HR Vasopressin 20 units/Sodium Chloride 100 ml @ 9 mls/hr Q11H7M IV 03/01/24 20:30 03/03/24 04:26 9 MLS/HR Ipratropium [place] 0.5 mg Q6HPRN PRN NEB 03/02/24 00:00 03/05/24 05:53 0.5 MG Amiodarone HCl 250 ml @ 16.667 mls/ hr Q15H IV 03/02/24 08:00 03/02/24 08:00 16.667 MLS/HR Levalbuterol HCl 0.625 mg Q6HPRN PRN NEB 03/02/24 06:00 03/05/24 05:53 0.625 MG Pantoprazole Sodium 40 mg DAILY IV 03/03/24 10:00 03/05/24 09:48 40 MG Enteral Nutritional Formula 1,000 ml 30ML/HR GT 03/03/24 14:30 03/05/24 12:30 1,000 ML Norepinephrine Bitartrate 250 ml @ 1.875 mls/ hr Q24H IV 03/04/24 10:45 03/05/24 10:45 3.75 MLS/HR Dexmedetomidine HCl 400 mcg/ Dextrose 100 ml @ 4.545 mls/ hr Q22H1M IV 03/04/24 15:30 Enteral Nutritional Formula 1,000 ml 30ML/HR GT 03/04/24 15:30 Examination Elderly obese female patient lying in bed, intubated and mechanically ventilated, RASS -3, off sedation General: Obese, afebrile, palor, mucosae are moist, opening eyes spontaneously but not responsive Cardiovascular: Irregular S1 and S2. No murmurs, gallops or rubs. No JVD elevation. No pedal edema Respiratory: Decreased basilar breath sounds. Saturating 98 on 30% FiO2. Abdomen: Soft, nontender, nondistended, hypoactive bowel sounds, no rebound tenderness, no organomegaly, no masses. Stage I decubitus perianal seen. Genitourinary: Kaur seen draining 15 cc of red urine MSK/skin: Skin is dry and warm Neurological: Pupils are isocoric and reactive. laboratory and microbiology Laboratory Tests 03/05/24 02:14 Test 03/05/24 02:14 Range/Units Serum Glucose 138 H 74-106 mg/dL Microbiology Date/Time Source Procedure Growth Status 03/02/24 19:24 Blood Blood Culture - Preliminary NO GROWTH AFTER 48 HOURS OF INCUBATION. Resulted 03/01/24 00:55 Sputum Gram Stain - Final Complete 03/01/24 00:55 Sputum Respiratory Culture - Final Complete Labs and/or images reviewed: Labs reviewed by me, Image(s) reviewed by me Problem List/Assessment/Plan Problem List/Assessment/Plan NEUROLOGY Altered level of consciousness due to hypoxic encephalopathy/bradycardia Head CT completed 03/01 unremarkable CARDIOVASCULAR Septic shock secondary to superimposed bacterial pneumonia on influenza a infection Hypertension Unspecified Atrial fibrillation on [id number]-[id number] score 4, has bled score 2 Dyslipidemia Elevated troponins likely NSTEMI type 2 Bradycardia Moderate TR Echocardiogram completed, shows LVEF 60%. RV and LA enlarged. Moderate TR Cardiology consulted-initiate therapeutic Lovenox renal dosing, transition to NOAC when appropriate. Beta ayleen when off the pressor. Hold amiodarone given bradycardia Received amiodarone 0.5 mg/minute starting 03/02, currently on hold given the bradycardia RESPIRATORY Acute hypoxic respiratory failure secondary to septic shock due to bacterial pneumonia superimposed on influenza infection Intubated and mechanically ventilated Oseltamivir 30 mg postdialysis daily starting 03/02 Levalbuterol and ipratropium nebulized treatment Completed CPAP trial 03/04. Patient not alert CPAP trial in the a.m. GI Transaminitis History of cholecystectomy Downtrending Liver ultrasound shows fatty infiltration of a normal-sized liver. Right pleural effusion. /KIDNEY ESRD on hemodialysis with [facility]-Saturday//Saturday Bilateral small atrophic kidneys Nephrology consulted-recommended fluid restriction, Epogen 58759 IV post HD. Continue HD Lokelma t.i.d. starting 03/02 ENDO Diabetes mellitus type 2-hemoglobin A1c 6.8 On ISS METABOLIC Anion gap metabolic acidosis secondary to lactic acidosis Morbid obesity ID Septic shock secondary to superimposed bacterial pneumonia on influenza a infection Blood cultures negative preliminary Respiratory g stain shows Gram-positive cocci in chains Continue IV vancomycin 03/01 and meropenem starting 03/02 Urine culture pending HEM-ONCO Thrombocytopenia Monitor LINES Intubated 03/01 Left subclavian CVC placed 03/01 DRIPS Versed 00 Fentanyl 100 Levophed 2 Vasopressin 0 NUTRITION: Nepro started 03/03 30 mL per hour DVT: On hold given hematuria and low platelets Goals of care/advance care planning; FULL CODE; discussed on 03/03 with the daughter over the phone call for 24 minutes. PUD prophylaxis: Pantoprazole 40 mg IV daily DVT prophylaxis: Enoxaparin 90 mg sc daily Plan discussed with daughter Dasia over the phone call - [phone] in which all questions have been answered Critical care time including review of the case, discussing with the patient's family and nurses excluding procedures: 57 minutes Case discussed with Dr. Chen. CPAP trial in the a.m. Plan discussed with: Patient My Orders My Orders Orders - HUE SANDOVAL Procedure Category Date Status Time Cleanse Wound With JOHANA 03/05/24 In Process Wound Clean 12:38 Cover Wound With Foam JOHANA 03/05/24 In Process Dressing 12:38 Dietary Evaluation Review Comments: TF Nepro 30ml/hr provides Pt's needs 100% for protein, 127% of energy. advanc eto Renal standard diet when pt is off vent and pass speech eval. Expected Outcomes/Goals: diet to advance Date of Service: Mar 05, 2024 Billing Provider: KATIANA CHEN MD Common Visit Codes: [id number] CARE 30-74 MIN HUE SANDOVAL Mar 05, 2024 19:31 KATIANA CHEN MD Mar 08, 2024 11:17
[2024-03-06] VITALS (102 sets, daily range): BP systolic 81–164; BP diastolic 11–70; PULSE 56–83; RESP 12–24; TEMP 97.5–99.7; O2SAT 94–100
--- NOTE | 2024-03-06 04:37 | DVH ---
CHEST RADIOGRAPH Indication: Follow up Technique: Single frontal view of the chest was obtained Comparison: XY CHEST XRAY 1 VIEW on DOS: 03/05/24 FINDINGS: Lines and Tubes: The endotracheal tube terminates 2.0 cm above the sia. Right central venous cath eter terminates in the right atrium. The enteric tube courses below the left hemidiaphragm and the ti p extends outside the field of view. Lungs: Bilateral airspace disease similar to prior study. Pleura: No effusion. No pneumothorax. Cardiomediastinal contours: Cardiomegaly. Bones: No acute osseous abnormality. IMPRESSION: 1. Stable position of the support lines and tubes. 2. Bilateral airspace disease similar to prior study.
[2024-03-06 09:19] LABS: Base Excess 0.4 mmol/L (-2.0-3.0)
[2024-03-06 09:41] LABS: Basophils # (auto) 0 10 ^3/uL (0-0.2); Basophils % (auto) 0.6 % (0.0-2.0); Eosinophils # (auto) 0 10 ^3/uL (0-0.8); Eosinophils % (auto) 0.7 % (0.0-7.0); Hematocrit 42.1 % (36.0-46.0); Hemoglobin 13.8 g/dL (12.2-16.2); Lymphocytes # (auto) 0.5 10 ^3/uL (0.4-5.4); Lymphocytes % (auto) 8.3 % (10.0-50.0); Mean Corpuscular Hemoglobin 31.5 pg (28.0-32.0); Mean Corpuscular Hgb Conc. 32.7 g/dL (32.0-36.0); Mean Corpuscular Volume 96.3 fL (80.0-100.0); Monocytes # (auto) 0.4 10 ^3/uL (0-1.3); Monocytes % (auto) 6.4 % (0.0-12.0); Neutrophils # (auto) 5.3 10 ^3/uL (1.6-8.6); Nucleated Red Blood Cells % 0.3 %; Platelet Count (auto) 65 10^3/uL (140-450); Red Blood Cells 4.37 10^6/uL (4.0-5.20); Red Cell Distribution Width 14.3 % (11.8-14.3); White Blood Cell 6.4 10^3/uL (4.4-10.8)
[2024-03-06 10:04] LABS: Albumin 3.3 g/dL (3.2-4.8); Anion Gap 12 (5-15); BUN/Creatinine Ratio 8.2 (10.0-20.0); Bilirubin, Total 0.7 mg/dL (0.2-1.0); Carbon Dioxide 28 mmol/L (20-31); Chloride 99 mmol/L (98-107); Magnesium 2.4 mg/dL (1.6-2.6); Potassium 4.2 mmol/L (3.5-5.1); Sodium 139 mmol/L (136-145)
[2024-03-06 10:05] LABS: Total Protein 5.8 g/dL (5.7-8.2)
[2024-03-06 10:11] LABS: Alanine Aminotransferase 256 U/L (7-40); Alkaline Phosphatase 187 U/L (46-116); Aspartate Aminotransferase 210 U/L (13-40); Blood Urea Nitrogen 48 mg/dL (9-23); Calcium 8.7 mg/dL (8.7-10.4); Glucose 143 mg/dL (74-106)
[2024-03-06] MEDS: NOREPINEPHRINE 8 MG/250ML KIT 250 ML IV SCH (10:30)
--- NOTE | 2024-03-06 14:01 | DVHPN2 ---
Progress Note Date Seen: Mar 06, 2024 Medical Necessity Reason Pt with a Central, PICC or Fol: Yes The following are medically ne: Central Line, Kaur Catheter Reason for kaur catheter: Strict I&O Subjective Patient reports: Other Review of Systems: Deferred Objective vital signs Vital Sign Date Time Temp Pulse Resp B/P (MAP) Pulse Ox O2 Delivery O2 Flow Rate FiO2 03/06/24 13:32 66 20 133/33 (66) 99 30 03/06/24 13:15 97.7 207.9 03/06/24 12:00 Mechanical Ventilator+ Total Intake and Output 03/05/24 03/05/24 03/06/24 15:00 23:00 07:00 Intake Total 30.00 ml 30.00 ml 26.25 ml Output Total 75 ml 25 ml Balance 30.00 ml -45.00 ml 1.25 ml medications Current Medications Medications Dose Ordered Sig/Ariela Route Start Time Stop Time Status Last Admin Dose Admin Propofol 100 ml @ 3 mls/hr Q24H IV 03/01/24 00:30 03/01/24 21:00 15 MLS/HR Fentanyl Citrate 250 ml @ 2.5 mls/hr Q24H IV 03/01/24 00:30 03/03/24 23:17 15 MLS/HR Midazolam HCl 50 ml @ 1 mls/hr Q24H IV 03/01/24 06:00 03/04/24 05:55 2 MLS/HR Diagnostic Test (Pha) 1 strip Q6HR 03/01/24 12:00 03/06/24 11:39 1 STRIP Insulin Human Regular Q6HR SC 03/01/24 12:00 03/06/24 06:01 2 UNITS Dextrose 50 ml UD PRN IV 03/01/24 08:00 Vancomycin HCl 0 ml @ 0 mls/hr UD IV 03/01/24 11:15 Oseltamivir Phosphate 30 mg POSTDI PO 03/02/24 22:00 03/07/24 21:59 Meropenem 50 ml @ 17 mls/hr DAILY IV 03/02/24 10:00 03/06/24 09:41 17 MLS/HR Vasopressin 20 units/Sodium Chloride 100 ml @ 9 mls/hr Q11H7M IV 03/01/24 20:30 03/03/24 04:26 9 MLS/HR Ipratropium [place] 0.5 mg Q6HPRN PRN NEB 03/02/24 00:00 03/05/24 05:53 0.5 MG Amiodarone HCl 250 ml @ 16.667 mls/ hr Q15H IV 03/02/24 08:00 03/02/24 08:00 16.667 MLS/HR Levalbuterol HCl 0.625 mg Q6HPRN PRN NEB 03/02/24 06:00 03/05/24 05:53 0.625 MG Pantoprazole Sodium 40 mg DAILY IV 03/03/24 10:00 03/06/24 09:41 40 MG Dexmedetomidine HCl 400 mcg/ Dextrose 100 ml @ 4.545 mls/ hr Q22H1M IV 03/04/24 15:30 Enteral Nutritional Formula 1,000 ml 30ML/HR GT 03/04/24 15:30 Norepinephrine Bitartrate 250 ml @ 0.938 mls/ hr Q24H IV 03/06/24 10:30 Examination: GENERAL:Abnormal, LUNGS:Abnormal, ABDOMEN:Abnormal laboratory and microbiology Laboratory Tests 03/06/24 08:57 Test 03/06/24 08:57 Range/Units Serum Glucose 143 H 74-106 mg/dL Microbiology Date/Time Source Procedure Growth Status 03/02/24 19:24 Blood Blood Culture - Preliminary NO GROWTH AFTER 72 HOURS OF INCUBATION. Resulted 03/01/24 00:55 Sputum Gram Stain - Final Complete 03/01/24 00:55 Sputum Respiratory Culture - Final Complete Problem List/Assessment/Plan Problem List/Assessment/Plan ESRD on dialysis Acute hypoxemic respiratory failure, intubated on ventilator Pneumonia HTN Sepsis Transaminitis Hyperphosphatemia will continue routine dialysis while admitted Epogen 10,000 IV post HD Fluids restriction IV Abx Pulmonary consult Plan discussed with: Other Dietary Evaluation Review Comments: TF Nepro 30ml/hr provides Pt's needs 100% for protein, 127% of energy. advanc eto Renal standard diet when pt is off vent and pass speech eval. Expected Outcomes/Goals: diet to advance BO CARRINGTON MD Mar 06, 2024 14:01
[2024-03-06] MEDS: Nepro With Carb Steady 1 Liter Bottle GT SCH (14:19)
[2024-03-06] MEDS: VANCOMYCIN 500mg/100mL 100 ML IV ONE (14:20)
--- NOTE | 2024-03-06 14:30 | DVHPNRES ---
Progress Note Date Seen: Mar 06, 2024 Resident Creating Document: HUE SANDOVAL RESIDENT Medical Necessity Reason Pt with a Central, PICC or Fol: Yes The following are medically ne: Central Line, Kaur Catheter Reason for kaur catheter: Strict I&O Subjective Review of Systems This is a 74-year-old female patient with PMHx of diabetes mellitus type 2, ESRD on hemodialysis with [facility] Saturday//Saturday - makes urine, atrial fibrillation on Eliquis, hypertension, dyslipidemia, obesity who presented to the ER with a chief complaint of shortness of breath and flu-like symptoms. Patient lives with her daughter who reports that patient suddenly got sick on 03/01 and she has productive cough with phlegm and was choking on her phlegm, associated with shortness of breaths, nausea vomiting and diarrhea. Later the patient could not recognize and was altered therefore EMS was called and patient was found to be hypotensive and bradycardic into 40s. She received 1 dose of atropine EN route. Initially EKG at our facility showed AFib +prolonged QTC. Cardiology was consulted who recommended holding anticoagulation given the low platelet count and holding off beta ayleen as the patient required pressors. Patient was intubated on 03/01 and ABG shows anion gap metabolic acidosis with respiratory acidosis. Base deficit was-14. She was diagnosed with influenza a infection. Also started on oseltamivir 30 mg post hemodialysis, Lokelma, amiodarone. An echo was done which showed LVEF 60%, RV in LA was enlarged. Moderate TR. She received IV vancomycin and meropenem. Preliminary blood cultures are negative. Respiratory Gram stain shows Gram-positive cocci in chains. Head CT was done which was unremarkable. They were ultrasound shows fatty liver and right-sided pleural effusion. Previously admitted at this hospital with a complaint of fall in August 2023 Past surgical history: Neck surgery 4 years back Home medications unknown 03/03-Patient seen and examined in ER bed 6. Amiodarone was DC as the patient was bradycardic into late 40s. ABG shows metabolic acidosis with compensation, base deficit is now -4. CPAP trial in the a.m.. EKG repeat shows atrial fibrillation with pulse rate 58 beats per minute. 03/04 - patient seen and examined at the bedside. Intermittent bradycardic into 50s. Telemetry reviewed, shows atrial fibrillation, heart rate going low as 45. Completed CPAP trial today, patient is not alert. CPAP trial tomorrow. Discontinue Lovenox. Currently on Levophed 4 Start Precedex if needed, otherwise keep minimally sedated. 03/05 - overnight temperature 99.0 F. heart rate goes to 54 beats per minute, telemetry reviewed, shows irregular rhythm, rate in 50s. Hemodialysis completed today, 2 L . Prelim blood culture negative. Respiratory culture negative. Anion gap increased to 17.. Respiratory culture. 03/06 - patient seen and examined at the bedside. Patient is opening eyes to stimulation but less than 10 seconds. On Levophed 2. CPAP trial failed, patient is apneic. Objective vital signs Vital Sign Date Time Temp Pulse Resp B/P (MAP) Pulse Ox O2 Delivery O2 Flow Rate FiO2 03/06/24 14:00 97.7 66 20 139/38 (71) 99 207.9 03/06/24 14:00 30 03/06/24 14:00 Mechanical Ventilator+ Total Intake and Output 03/05/24 03/05/24 03/06/24 15:00 23:00 07:00 Intake Total 30.00 ml 30.00 ml 26.25 ml Output Total 75 ml 25 ml Balance 30.00 ml -45.00 ml 1.25 ml medications Current Medications Medications Dose Ordered Sig/Ariela Route Start Time Stop Time Status Last Admin Dose Admin Propofol 100 ml @ 3 mls/hr Q24H IV 03/01/24 00:30 03/01/24 21:00 15 MLS/HR Fentanyl Citrate 250 ml @ 2.5 mls/hr Q24H IV 03/01/24 00:30 03/03/24 23:17 15 MLS/HR Midazolam HCl 50 ml @ 1 mls/hr Q24H IV 03/01/24 06:00 03/04/24 05:55 2 MLS/HR Diagnostic Test (Pha) 1 strip Q6HR 03/01/24 12:00 03/06/24 11:39 1 STRIP Insulin Human Regular Q6HR SC 03/01/24 12:00 03/06/24 06:01 2 UNITS Dextrose 50 ml UD PRN IV 03/01/24 08:00 Vancomycin HCl 0 ml @ 0 mls/hr UD IV 03/01/24 11:15 Oseltamivir Phosphate 30 mg POSTDI PO 03/02/24 22:00 03/07/24 21:59 Meropenem 50 ml @ 17 mls/hr DAILY IV 03/02/24 10:00 03/06/24 09:41 17 MLS/HR Vasopressin 20 units/Sodium Chloride 100 ml @ 9 mls/hr Q11H7M IV 03/01/24 20:30 03/03/24 04:26 9 MLS/HR Ipratropium [place] 0.5 mg Q6HPRN PRN NEB 03/02/24 00:00 03/05/24 05:53 0.5 MG Amiodarone HCl 250 ml @ 16.667 mls/ hr Q15H IV 03/02/24 08:00 03/02/24 08:00 16.667 MLS/HR Levalbuterol HCl 0.625 mg Q6HPRN PRN NEB 03/02/24 06:00 03/05/24 05:53 0.625 MG Pantoprazole Sodium 40 mg DAILY IV 03/03/24 10:00 03/06/24 09:41 40 MG Dexmedetomidine HCl 400 mcg/ Dextrose 100 ml @ 4.545 mls/ hr Q22H1M IV 03/04/24 15:30 Enteral Nutritional Formula 1,000 ml 30ML/HR GT 03/04/24 15:30 Norepinephrine Bitartrate 250 ml @ 0.938 mls/ hr Q24H IV 03/06/24 10:30 Examination Elderly obese female patient lying in bed, intubated and mechanically ventilated, RASS -3, off sedation, opening eyes to stimulation briefly less than 10 seconds General: Obese, afebrile, palor, mucosae are moist, opening eyes spontaneously but not responsive Cardiovascular: Irregular S1 and S2. No murmurs, gallops or rubs. No JVD elevation. 1+ pitting edema Respiratory: Decreased basilar breath sounds. Saturating 98 on 30% FiO2. Abdomen: Soft, nontender, nondistended, hypoactive bowel sounds, no rebound tenderness, no organomegaly, no masses. Stage I decubitus perianal seen. Genitourinary: Kaur seen draining 15 cc of red urine MSK/skin: Skin is dry and warm Neurological: Pupils are isocoric and reactive. laboratory and microbiology Laboratory Tests 03/06/24 08:57 Test 03/06/24 08:57 Range/Units Serum Glucose 143 H 74-106 mg/dL Microbiology Date/Time Source Procedure Growth Status 03/02/24 19:24 Blood Blood Culture - Preliminary NO GROWTH AFTER 72 HOURS OF INCUBATION. Resulted 03/01/24 00:55 Sputum Gram Stain - Final Complete 03/01/24 00:55 Sputum Respiratory Culture - Final Complete Labs and/or images reviewed: Labs reviewed by me, Image(s) reviewed by me Problem List/Assessment/Plan Problem List/Assessment/Plan NEUROLOGY Altered level of consciousness due to toxic versus metabolic encephalopathy Head CT completed 03/01 unremarkable CARDIOVASCULAR Septic shock secondary to superimposed bacterial pneumonia on influenza a infection Hypertension Unspecified Atrial fibrillation on Onvphwa-BSEHO-EQCb score 4, has bled score 2 Dyslipidemia Elevated troponins likely NSTEMI type 2 Bradycardia Moderate TR Echocardiogram completed, shows LVEF 60%. RV and LA enlarged. Moderate TR Cardiology consulted-initiate therapeutic Lovenox renal dosing, transition to NOAC when appropriate. Beta ayleen when off the pressor. Hold amiodarone given bradycardia Received amiodarone 0.5 mg/minute starting 03/02, currently on hold given the bradycardia RESPIRATORY Acute hypoxic respiratory failure secondary to septic shock due to bacterial pneumonia superimposed on influenza infection Intubated and mechanically ventilated Oseltamivir 30 mg postdialysis daily starting 03/02 Levalbuterol and ipratropium nebulized treatment Completed CPAP trial 03/04. Patient not alert 03/06 CPAP trial failed, patient is apneic. GI Transaminitis History of cholecystectomy Downtrending Liver ultrasound shows fatty infiltration of a normal-sized liver. Right pleural effusion. /KIDNEY ESRD on hemodialysis with [facility]-Saturday//Saturday Bilateral small atrophic kidneys Nephrology consulted-recommended fluid restriction, Epogen 93208 IV post HD. Continue HD Lokelma t.i.d. starting 03/02 ENDO Diabetes mellitus type 2-hemoglobin A1c 6.8 On ISS METABOLIC Anion gap metabolic acidosis secondary to lactic acidosis Morbid obesity ID Septic shock secondary to superimposed bacterial pneumonia on influenza a infection Blood cultures negative preliminary Respiratory g stain shows Gram-positive cocci in chains Continue IV vancomycin 03/01 and meropenem starting 03/02 Urine culture pending HEM-ONCO Thrombocytopenia Monitor LINES Intubated 03/01 Left subclavian CVC placed 03/01 DRIPS Versed 00 Fentanyl 0 Levophed 2 Vasopressin 0 NUTRITION: Nepro started 03/03 30 mL per hour DVT: On hold given hematuria and low platelets Goals of care/advance care planning; FULL CODE; discussed on 03/03 with the daughter over the phone call for 24 minutes. PUD prophylaxis: Pantoprazole 40 mg IV daily DVT prophylaxis: Enoxaparin 90 mg sc daily Plan discussed with daughter Dasia over the phone call - [phone] in which all questions have been answered Critical care time including review of the case, discussing with the patient's family and nurses excluding procedures: 57 minutes Case discussed with Dr. Zambrano. CPAP trial failed, patient is apneic. CPAP trial in the a.m. Plan discussed with: Patient My Orders My Orders Orders - HUE SANDOVAL Procedure Category Date Status Time Cleanse Wound With JOHANA 03/05/24 In Process Wound Clean 12:38 Cover Wound With Foam JOHANA 03/05/24 In Process Dressing 12:38 Respiratory Culture ELOISA 03/05/24 Logged W/ Gs 19:31 Chest Xray 1 View XY 03/06/24 Resulted 04:00 Cpap Trial For Am ORDERS 03/06/24 Transmitted 04:00 Abg W/ Co-Ox RT 03/06/24 Logged 05:28 Norepinephrine 8 PHA 03/06/24 In Process Mg/250ml Kit 10:30 Dietary Evaluation Review Comments: TF Nepro 30ml/hr provides Pt's needs 100% for protein, 127% of energy. advanc eto Renal standard diet when pt is off vent and pass speech eval. Expected Outcomes/Goals: diet to advance Date of Service: Mar 06, 2024 Billing Provider: DARÍO ZAMBRANO MD Common Visit Codes: [id number] CARE 30-74 MIN HUE SANDOVAL Mar 06, 2024 14:30 DARÍO ZAMBRANO MD Mar 08, 2024 21:40
[2024-03-06 16:39] LABS: Rapid Influenza B Negative (Negative)
[2024-03-06 16:41] LABS: Rapid Influenza A Positive (Negative)
[2024-03-07] VITALS (109 sets, daily range): BP systolic 82–160; BP diastolic 26–96; PULSE 71–115; RESP 15–30; TEMP 96.8–99.1; O2SAT 93–100
[2024-03-07 04:22] LABS: Basophils # (auto) 0 10 ^3/uL (0-0.2); Basophils % (auto) 0.5 % (0.0-2.0); Eosinophils # (auto) 0 10 ^3/uL (0-0.8); Eosinophils % (auto) 0.7 % (0.0-7.0); Hematocrit 41.6 % (36.0-46.0); Hemoglobin 13.8 g/dL (12.2-16.2); Lymphocytes # (auto) 0.5 10 ^3/uL (0.4-5.4); Lymphocytes % (auto) 8.1 % (10.0-50.0); Mean Corpuscular Hemoglobin 31.8 pg (28.0-32.0); Mean Corpuscular Hgb Conc. 33.1 g/dL (32.0-36.0); Monocytes # (auto) 0.4 10 ^3/uL (0-1.3); Monocytes % (auto) 6.5 % (0.0-12.0); Neutrophils # (auto) 5.1 10 ^3/uL (1.6-8.6); Neutrophils % (auto) 84.2 % (37.0-80.0); Nucleated Red Blood Cells % 0.4 %; Platelet Count (auto) 68 10^3/uL (140-450); Red Blood Cells 4.33 10^6/uL (4.0-5.20); Red Cell Distribution Width 14.6 % (11.8-14.3); White Blood Cell 6.1 10^3/uL (4.4-10.8)
[2024-03-07 04:32] LABS: Albumin 3.2 g/dL (3.2-4.8); Anion Gap 14 (5-15); BUN/Creatinine Ratio 8.8 (10.0-20.0); Calcium 8.8 mg/dL (8.7-10.4); Carbon Dioxide 26 mmol/L (20-31); Chloride 99 mmol/L (98-107); Potassium 4.2 mmol/L (3.5-5.1); Sodium 139 mmol/L (136-145)
[2024-03-07 04:33] LABS: Bilirubin, Total 0.6 mg/dL (0.2-1.0); Total Protein 5.9 g/dL (5.7-8.2)
[2024-03-07 04:34] LABS: Alanine Aminotransferase 196 U/L (7-40); Alkaline Phosphatase 194 U/L (46-116); Aspartate Aminotransferase 142 U/L (13-40); Bilirubin, Direct 0.4 mg/dL (<0.3); Blood Urea Nitrogen 58 mg/dL (9-23); Glucose 180 mg/dL (74-106)
--- NOTE | 2024-03-07 05:50 | DVH ---
CHEST RADIOGRAPH Indication: Follow up Technique: Single frontal view of the chest was obtained Comparison: XY CHEST XRAY 1 VIEW on DOS: 03/06/24, XY CHEST XRAY 1 VIEW on DOS: 03/05/24, XY CHEST XRAY 1 VIEW on DOS: 03/04/24 IMPRESSION: The heart is enlarged. Support lines and tubes appear unchanged. Bilateral perihilar airspace opaci ties appear similar. No sizable effusion or pneumothorax.
[2024-03-07 08:11] LABS: Base Excess 0.2 mmol/L (-2.0-3.0)
--- NOTE | 2024-03-07 13:47 | DVHPN2 ---
Assessment/Plan Assessment/Plan ICU progress note Subjective 74 F ESRD on HD, DMT2, obesity afib admitted for flu A PNA with respiratory failure. Intubated and sedated on mechanical ventilator. Patient was seen by me today during rounds, off sedation, hypotensive on levophed, in sync with vent, apneic on CPAP, no mental status Objective Physical exam intubated and mechanically ventilated mechanical breath sounds PERRLA cough + gag + s1 s2s irregular abdomen soft L UE AVF Assessment and plan metabolic vs hypoxic encephalopathy acute hypoxic respiratory failure s/p intubation septic shock 2/2 PNA flu possible bacterial superimposed afib not on ac hematuria type 2 KS likely sepsis ESRD on HD NIDDM Modbid obesity Thrombocytopenia likely sepsis transaminitis shock liver? c/w mechanical ventilation daily SAT SBT hold amio given rate controled off ac 2/2 thrombocytopenia and hematuria c/w vanc and alejandro follow cultures maintain map >65, can have higher map goal for HD nephro consult appreciated, c/w HD Lines ETT L SC TLC Gabriel Maintain potassium of 4, phosphate of 3 and magnesium of 2 Diet tube feeding, hold for CPAP GI prophylaxis protonix DVT prophylaxis hold Condition critical Prognosis poor 48 minutes critical care time spent on this patient including evaluation, chart review, formulating plan and communication with team, excluding any procedures or point of care imaging Plan discussed with: Other Date of Service: Mar 07, 2024 Billing Provider: DARÍO ARENAS MD Common Visit Codes: [id number] CARE 30-74 MIN DARÍO ARENAS MD Mar 07, 2024 13:47
--- NOTE | 2024-03-07 14:58 | DVHPN2 ---
Progress Note Date Seen: Mar 07, 2024 Medical Necessity Reason Pt with a Central, PICC or Fol: Yes The following are medically ne: Central Line, Kaur Catheter Reason for kaur catheter: Strict I&O Subjective Patient reports: Other Review of Systems: Deferred Objective vital signs Vital Sign Date Time Temp Pulse Resp B/P (MAP) Pulse Ox O2 Delivery O2 Flow Rate FiO2 03/07/24 14:27 91 20 100 30 03/07/24 12:00 Mechanical Ventilator+ 03/07/24 11:45 97.0 206.6 Total Intake and Output 03/06/24 03/06/24 03/07/24 15:00 23:00 07:00 Intake Total 279.063 ml 75.815 ml 163.375 ml Output Total 0 ml 0 ml Balance 279.063 ml 75.815 ml 163.375 ml medications Current Medications Medications Dose Ordered Sig/Ariela Route Start Time Stop Time Status Last Admin Dose Admin Propofol 100 ml @ 3 mls/hr Q24H IV 03/01/24 00:30 03/01/24 21:00 15 MLS/HR Fentanyl Citrate 250 ml @ 2.5 mls/hr Q24H IV 03/01/24 00:30 03/03/24 23:17 15 MLS/HR Midazolam HCl 50 ml @ 1 mls/hr Q24H IV 03/01/24 06:00 03/04/24 05:55 2 MLS/HR Diagnostic Test (Pha) 1 strip Q6HR 03/01/24 12:00 03/07/24 11:31 1 STRIP Insulin Human Regular Q6HR SC 03/01/24 12:00 03/07/24 11:31 2 UNITS Dextrose 50 ml UD PRN IV 03/01/24 08:00 Vancomycin HCl 0 ml @ 0 mls/hr UD IV 03/01/24 11:15 Oseltamivir Phosphate 30 mg POSTDI PO 03/02/24 22:00 03/07/24 21:59 Meropenem 50 ml @ 17 mls/hr DAILY IV 03/02/24 10:00 03/06/24 09:41 17 MLS/HR Vasopressin 20 units/Sodium Chloride 100 ml @ 9 mls/hr Q11H7M IV 03/01/24 20:30 03/03/24 04:26 9 MLS/HR Ipratropium [place] 0.5 mg Q6HPRN PRN NEB 03/02/24 00:00 03/07/24 11:53 0.5 MG Amiodarone HCl 250 ml @ 16.667 mls/ hr Q15H IV 03/02/24 08:00 03/02/24 08:00 16.667 MLS/HR Levalbuterol HCl 0.625 mg Q6HPRN PRN NEB 03/02/24 06:00 03/07/24 11:52 0.625 MG Pantoprazole Sodium 40 mg DAILY IV 03/03/24 10:00 03/07/24 11:08 40 MG Dexmedetomidine HCl 400 mcg/ Dextrose 100 ml @ 4.545 mls/ hr Q22H1M IV 03/04/24 15:30 Enteral Nutritional Formula 1,000 ml 30ML/HR GT 03/04/24 15:30 03/06/24 14:19 1,000 ML Norepinephrine Bitartrate 250 ml @ 0.938 mls/ hr Q24H IV 03/06/24 10:30 03/06/24 22:51 6.563 MLS/HR Examination: GENERAL:Abnormal, LUNGS:Abnormal, ABDOMEN:Abnormal, NEURO:Abnormal laboratory and microbiology Laboratory Tests 03/07/24 03:20 Test 03/07/24 03:20 Range/Units Serum Glucose 180 H 74-106 mg/dL Microbiology Date/Time Source Procedure Growth Status 03/05/24 22:30 Nose MRSA Screen - Final Complete 03/05/24 04:00 Urine - [place]aur [place] Urine Culture - Final Complete 03/02/24 19:24 Blood Blood Culture - Preliminary NO GROWTH AFTER 72 HOURS OF INCUBATION. Resulted 03/01/24 00:55 Sputum Gram Stain - Final Complete 03/01/24 00:55 Sputum Respiratory Culture - Final Complete Problem List/Assessment/Plan Problem List/Assessment/Plan ESRD on dialysis Acute hypoxemic respiratory failure, intubated on ventilator Pneumonia HTN Sepsis Transaminitis Hyperphosphatemia HD today , next treatment on saturday unless requires more fluid removal earlier Epogen 10,000 IV post HD Fluids restriction IV Abx Pulmonary consult Plan discussed with: Other My Orders My Orders Orders - BO CARRINGTON MD Procedure Category Date Status Time Hemodialysis Orders ORDERS 03/07/24 Transmitted 04:00 Dietary Evaluation Review Comments: TF Nepro 30ml/hr provides Pt's needs 100% for protein, 127% of energy. advanc eto Renal standard diet when pt is off vent and pass speech eval. Expected Outcomes/Goals: diet to advance BO CARRINGTON MD Mar 07, 2024 14:57
[2024-03-07] MEDS: OSELTAMIVIR 30 MG CAP PO SCH (20:49)
--- NOTE | 2024-03-07 23:46 | DVHPN2 ---
Progress Note - Dictate Date Seen: Mar 07, 2024 Medical Necessity Reason Pt with a Central, PICC or Fol: Yes The following are medically ne: Central Line, Kaur Catheter Reason for kaur catheter: Strict I&O Subjective Patient seen and examined at bedside. Sedated, intubated on mechanical ventilator. Overnight events reviewed. vital signs Vital Sign Date Time Temp Pulse Resp B/P (MAP) Pulse Ox O2 Delivery O2 Flow Rate FiO2 03/07/24 23:31 30 03/07/24 23:31 20 100 Mechanical Ventilator+ 03/07/24 23:30 98.6 96 121/96 (104) 209.5 Total Intake and Output 03/06/24 03/06/24 03/07/24 15:00 23:00 07:00 Intake Total 279.063 ml 75.815 ml 168.055 ml Output Total 0 ml 0 ml Balance 279.063 ml 75.815 ml 168.055 ml medications Current Medications Medications Dose Ordered Sig/Ariela Route Start Time Stop Time Status Last Admin Dose Admin Propofol 100 ml @ 3 mls/hr Q24H IV 03/01/24 00:30 03/01/24 21:00 15 MLS/HR Fentanyl Citrate 250 ml @ 2.5 mls/hr Q24H IV 03/01/24 00:30 03/03/24 23:17 15 MLS/HR Midazolam HCl 50 ml @ 1 mls/hr Q24H IV 03/01/24 06:00 03/04/24 05:55 2 MLS/HR Diagnostic Test (Pha) 1 strip Q6HR 03/01/24 12:00 03/07/24 23:31 1 STRIP Insulin Human Regular Q6HR SC 03/01/24 12:00 03/07/24 11:31 2 UNITS Dextrose 50 ml UD PRN IV 03/01/24 08:00 Vancomycin HCl 0 ml @ 0 mls/hr UD IV 03/01/24 11:15 Meropenem 50 ml @ 17 mls/hr DAILY IV 03/02/24 10:00 03/07/24 15:30 17 MLS/HR Vasopressin 20 units/Sodium Chloride 100 ml @ 9 mls/hr Q11H7M IV 03/01/24 20:30 03/03/24 04:26 9 MLS/HR Ipratropium [place] 0.5 mg Q6HPRN PRN NEB 03/02/24 00:00 03/07/24 22:34 0.5 MG Amiodarone HCl 250 ml @ 16.667 mls/ hr Q15H IV 03/02/24 08:00 03/02/24 08:00 16.667 MLS/HR Levalbuterol HCl 0.625 mg Q6HPRN PRN NEB 03/02/24 06:00 03/07/24 22:34 0.625 MG Pantoprazole Sodium 40 mg DAILY IV 03/03/24 10:00 03/07/24 11:08 40 MG Dexmedetomidine HCl 400 mcg/ Dextrose 100 ml @ 4.545 mls/ hr Q22H1M IV 03/04/24 15:30 Enteral Nutritional Formula 1,000 ml 30ML/HR GT 03/04/24 15:30 03/06/24 14:19 1,000 ML Norepinephrine Bitartrate 250 ml @ 0.938 mls/ hr Q24H IV 03/06/24 10:30 03/06/24 22:51 6.563 MLS/HR objective Gen.: Patient lying in bed in medical ICU. Sedated, intubated on mechanical ventilator. Head: Normocephalic, atraumatic. Eyes: PERRLA. Ears: Normal external anatomy. Throat: Endotracheal tube and orogastric tube in place. Neck: Supple, trachea midline. Chest: Transmitted breath sounds bilaterally. Decreased air entry bilaterally. No wheezing. Bibasilar crackles. Cardio vascular: Positive S1, positive S2. Regular rate and rhythm. Abdomen: Positive bowel sounds in all 4 quadrants. Soft, nontender, nondistended. : Kaur in place. Normal external genitalia. Rectal: Deferred Skin: Warm, dry. Intact. Extremities: 2+ radial pulses bilaterally. No lower extremity edema. Neuro: Sedated. laboratory and microbiology Laboratory Tests 03/07/24 03:20 Test 03/07/24 03:20 Range/Units Serum Glucose 180 H 74-106 mg/dL Assessment/Plan Impression: Acute hypoxic respiratory failure On mechanical ventilator Septic shock Influenza Type A Metabolic acidosis Morbid obesity BMI 41.9 Events: Patient remains on peep of five, FiO2 of 30% for Off fentanyl. Continue antibiotics On Levophed at 4 micrograms/minute Continue tube feeds for nutritional support. CPAP trial once awake, alert, following commands. Rest of plan as outlined below Plan: s/p intubation, on mechanical ventilator Vent settings: AC mode with RR 20, VT 400, PEEP 5, FiO2 30% On Levophed 14 mcg/min for hemodynamic support Titrate to keep MAP above 65 mmHg On sedation with Prop, versed, fentanyl drip. Continue Tamiflu course. Continue antibiotics Accu-Cheks, ISS Monitor renal function Monitor electrolytes - supplement as necessary Monitor ins and outs GI/DVT prophylaxis Prognosis: Poor given patient's multiple co-morbidities. Condition: Critical Rest of plan per hospitalist and other consultants. A total of 35 minutes of critical care time was spent reviewing the patient record, examining the patient, making a diagnostic and therapeutic plan, discussing this plan with the medical personnel, following up on diagnostic studies and following the patient for clinical stability excluding any and all procedures. At least 50% of this time was spent in direct, [id number] contact. Thank you, KATHRYN Montero, for allowing me to participate in this patient's care. Further recommendations will depend on the patient's clinical course. Please do not hesitate to contact me if you have any questions or concerns. This medical document was created using an electronic medical record system with [employer] dictation system. Although these documentations are being carefully reviewed, there may still be some phonetic and typographical changes. The errors are purely typographical, due to imperfection on the software program, and do not reflect any compromise in the patient's medical care. Dietary Evaluation Review Comments: TF Nepro 30ml/hr provides Pt's needs 100% for protein, 127% of energy. advanc eto Renal standard diet when pt is off vent and pass speech eval. Expected Outcomes/Goals: diet to advance Plan discussed with: Other (RN Tatiana, RT, MD) Critical Care Time(min): 35 ANNETTE PAINTER MD Mar 07, 2024 23:46
[2024-03-08] VITALS (114 sets, daily range): BP systolic 85–157; BP diastolic 13–89; PULSE 63–149; RESP 17–22; TEMP 97.5–99.1; O2SAT 90–100
[2024-03-08 04:11] LABS: Basophils # (auto) 0 10 ^3/uL (0-0.2); Basophils % (auto) 0.6 % (0.0-2.0); Eosinophils # (auto) 0.1 10 ^3/uL (0-0.8); Eosinophils % (auto) 1.4 % (0.0-7.0); Hematocrit 41.2 % (36.0-46.0); Hemoglobin 13.4 g/dL (12.2-16.2); Lymphocytes # (auto) 0.5 10 ^3/uL (0.4-5.4); Lymphocytes % (auto) 9.8 % (10.0-50.0); Mean Corpuscular Hemoglobin 31.3 pg (28.0-32.0); Mean Corpuscular Hgb Conc. 32.4 g/dL (32.0-36.0); Mean Corpuscular Volume 96.6 fL (80.0-100.0); Monocytes # (auto) 0.5 10 ^3/uL (0-1.3); Monocytes % (auto) 8.5 % (0.0-12.0); Neutrophils # (auto) 4.4 10 ^3/uL (1.6-8.6); Neutrophils % (auto) 79.7 % (37.0-80.0); Nucleated Red Blood Cells % 0.3 %; Platelet Count (auto) 63 10^3/uL (140-450); Red Blood Cells 4.27 10^6/uL (4.0-5.20); Red Cell Distribution Width 14.9 % (11.8-14.3); White Blood Cell 5.5 10^3/uL (4.4-10.8)
[2024-03-08 04:43] LABS: Anion Gap 13 (5-15); Calcium 9.1 mg/dL (8.7-10.4); Carbon Dioxide 27 mmol/L (20-31); Chloride 99 mmol/L (98-107); Sodium 139 mmol/L (136-145)
[2024-03-08 04:49] LABS: BUN/Creatinine Ratio 6.8 (10.0-20.0); Blood Urea Nitrogen 35 mg/dL (9-23); Glucose 147 mg/dL (74-106)
--- NOTE | 2024-03-08 12:25 | DVHPN2 ---
Progress Note Date Seen: Mar 08, 2024 Medical Necessity Reason Pt with a Central, PICC or Fol: Yes The following are medically ne: Central Line, Kaur Catheter Reason for kaur catheter: Strict I&O Subjective Review of Systems: Deferred Objective vital signs Vital Sign Date Time Temp Pulse Resp B/P (MAP) Pulse Ox O2 Delivery O2 Flow Rate FiO2 03/08/24 11:31 98.6 75 20 120/25 (56) 100 209.5 03/08/24 10:58 30 03/08/24 10:00 Mechanical Ventilator+ Total Intake and Output 03/07/24 03/07/24 03/08/24 15:00 23:00 07:00 Intake Total 50.595 ml 110.063 ml 133.001 ml Output Total 25 ml 0 ml Balance 50.595 ml 85.063 ml 133.001 ml medications Current Medications Medications Dose Ordered Sig/Ariela Route Start Time Stop Time Status Last Admin Dose Admin Fentanyl Citrate 250 ml @ 2.5 mls/hr Q24H IV 03/01/24 00:30 03/03/24 23:17 15 MLS/HR Midazolam HCl 50 ml @ 1 mls/hr Q24H IV 03/01/24 06:00 03/04/24 05:55 2 MLS/HR Diagnostic Test (Pha) 1 strip Q6HR 03/01/24 12:00 03/08/24 05:11 1 STRIP Insulin Human Regular Q6HR SC 03/01/24 12:00 03/08/24 05:36 2 UNITS Dextrose 50 ml UD PRN IV 03/01/24 08:00 Vancomycin HCl 0 ml @ 0 mls/hr UD IV 03/01/24 11:15 Meropenem 50 ml @ 17 mls/hr DAILY IV 03/02/24 10:00 03/08/24 10:32 17 MLS/HR Vasopressin 20 units/Sodium Chloride 100 ml @ 9 mls/hr Q11H7M IV 03/01/24 20:30 03/03/24 04:26 9 MLS/HR Ipratropium [place] 0.5 mg Q6HPRN PRN NEB 03/02/24 00:00 03/07/24 22:34 0.5 MG Amiodarone HCl 250 ml @ 16.667 mls/ hr Q15H IV 03/02/24 08:00 03/02/24 08:00 16.667 MLS/HR Levalbuterol HCl 0.625 mg Q6HPRN PRN NEB 03/02/24 06:00 03/07/24 22:34 0.625 MG Pantoprazole Sodium 40 mg DAILY IV 03/03/24 10:00 03/08/24 10:30 40 MG Dexmedetomidine HCl 400 mcg/ Dextrose 100 ml @ 4.545 mls/ hr Q22H1M IV 03/04/24 15:30 Enteral Nutritional Formula 1,000 ml 30ML/HR GT 03/04/24 15:30 03/06/24 14:19 1,000 ML Norepinephrine Bitartrate 250 ml @ 0.938 mls/ hr Q24H IV 03/06/24 10:30 03/08/24 08:27 3.75 MLS/HR Examination: GENERAL:Abnormal, LUNGS:Abnormal, ABDOMEN:Abnormal laboratory and microbiology Laboratory Tests 03/08/24 03:30 Test 03/08/24 03:30 Range/Units Serum Glucose 147 H 74-106 mg/dL Microbiology Date/Time Source Procedure Growth Status 03/05/24 22:30 Nose MRSA Screen - Final Complete 03/05/24 04:00 Urine - [place] Urine Culture - Final Complete 03/02/24 19:24 Blood Blood Culture - Final NO GROWTH AFTER 5 DAYS OF INCUBATION. Complete 03/01/24 00:55 Sputum Gram Stain - Final Complete 03/01/24 00:55 Sputum Respiratory Culture - Final Complete Problem List/Assessment/Plan Problem List/Assessment/Plan ESRD on dialysis Acute hypoxemic respiratory failure, intubated on ventilator Pneumonia HTN Sepsis Transaminitis Hyperphosphatemia next treatment on saturday unless requires more fluid removal earlier Epogen 10,000 IV post HD Fluids restriction IV Abx Pulmonary consult Plan discussed with: Other Dietary Evaluation Review Comments: TF Nepro 30ml/hr provides Pt's needs 100% for protein, 127% of energy. advanc eto Renal standard diet when pt is off vent and pass speech eval. Expected Outcomes/Goals: diet to advance BO CARRINGTON MD Mar 08, 2024 12:25
[2024-03-08] MEDS: VANCOMYCIN 500mg/100mL 100 ML IV ONE (17:11)
--- NOTE | 2024-03-08 18:09 | DVHPN2 ---
Assessment/Plan Assessment/Plan ICU progress note Subjective 74 F ESRD on HD, DMT2, obesity afib admitted for flu A PNA with respiratory failure. Intubated and sedated on mechanical ventilator. Patient was seen by me today during rounds, HD yesterday, pressor on same, titrating today. pulling breath on CPAP, inadequate TV Objective Physical exam intubated and mechanically ventilated mechanical breath sounds PERRLA cough + gag + wincing to pain s1 s2s irregular abdomen soft L UE AVF Assessment and plan metabolic vs hypoxic encephalopathy, possibly sedation related given ESRD acute hypoxic respiratory failure s/p intubation septic shock 2/2 PNA flu possible bacterial superimposed afib not on ac hematuria type 2 [place] likely sepsis ESRD on HD NIDDM Modbid obesity Thrombocytopenia likely sepsis transaminitis shock liver? c/w mechanical ventilation daily SAT SBT hold amio given rate controled off ac 2/2 thrombocytopenia and hematuria c/w vanc and alejandro follow cultures maintain map >65, can have higher map goal for HD nephro consult appreciated, c/w HD Lines ETT L SC TLC Gabriel Maintain potassium of 4, phosphate of 3 and magnesium of 2 Diet tube feeding, hold for CPAP GI prophylaxis protonix DVT prophylaxis hold Condition critical Prognosis poor 41 minutes critical care time spent on this patient including evaluation, chart review, formulating plan and communication with team, excluding any procedures or point of care imaging Plan discussed with: Other Date of Service: Mar 08, 2024 Billing Provider: DARÍO ARENAS MD Common Visit Codes: [id number] CARE 30-74 MIN DARÍO ARENAS MD Mar 08, 2024 18:09
--- NOTE | 2024-03-08 23:47 | DVHPN2 ---
Progress Note - Dictate Date Seen: Mar 08, 2024 Medical Necessity Reason Pt with a Central, PICC or Fol: Yes The following are medically ne: Central Line, Kaur Catheter Reason for kaur catheter: Strict I&O Subjective Patient seen and examined at bedside. Sedated, intubated on mechanical ventilator. Overnight events reviewed. vital signs Vital Sign Date Time Temp Pulse Resp B/P (MAP) Pulse Ox O2 Delivery O2 Flow Rate FiO2 03/08/24 23:30 98.1 73 20 135/56 (82) 98 208.6 03/08/24 22:15 30 03/08/24 22:00 Mechanical Ventilator+ Total Intake and Output 03/07/24 03/07/24 03/08/24 15:00 23:00 07:00 Intake Total 50.595 ml 110.063 ml 133.001 ml Output Total 25 ml 0 ml Balance 50.595 ml 85.063 ml 133.001 ml medications Current Medications Medications Dose Ordered Sig/Ariela Route Start Time Stop Time Status Last Admin Dose Admin Fentanyl Citrate 250 ml @ 2.5 mls/hr Q24H IV 03/01/24 00:30 03/03/24 23:17 15 MLS/HR Midazolam HCl 50 ml @ 1 mls/hr Q24H IV 03/01/24 06:00 03/04/24 05:55 2 MLS/HR Diagnostic Test (Pha) 1 strip Q6HR 03/01/24 12:00 03/08/24 23:26 1 STRIP Insulin Human Regular Q6HR SC 03/01/24 12:00 03/08/24 23:26 2 UNITS Dextrose 50 ml UD PRN IV 03/01/24 08:00 Vancomycin HCl 0 ml @ 0 mls/hr UD IV 03/01/24 11:15 Meropenem 50 ml @ 17 mls/hr DAILY IV 03/02/24 10:00 03/08/24 10:32 17 MLS/HR Vasopressin 20 units/Sodium Chloride 100 ml @ 9 mls/hr Q11H7M IV 03/01/24 20:30 03/03/24 04:26 9 MLS/HR Ipratropium [place] 0.5 mg Q6HPRN PRN NEB 03/02/24 00:00 03/08/24 12:50 0.5 MG Amiodarone HCl 250 ml @ 16.667 mls/ hr Q15H IV 03/02/24 08:00 03/02/24 08:00 16.667 MLS/HR Levalbuterol HCl 0.625 mg Q6HPRN PRN NEB 03/02/24 06:00 03/08/24 12:50 0.625 MG Pantoprazole Sodium 40 mg DAILY IV 03/03/24 10:00 03/08/24 10:30 40 MG Dexmedetomidine HCl 400 mcg/ Dextrose 100 ml @ 4.545 mls/ hr Q22H1M IV 03/04/24 15:30 Enteral Nutritional Formula 1,000 ml 30ML/HR GT 03/04/24 15:30 03/08/24 12:49 1,000 ML Norepinephrine Bitartrate 250 ml @ 0.938 mls/ hr Q24H IV 03/06/24 10:30 03/08/24 08:27 3.75 MLS/HR objective Gen.: Patient lying in bed in medical ICU. Sedated, intubated on mechanical ventilator. Head: Normocephalic, atraumatic. Eyes: PERRLA. Ears: Normal external anatomy. Throat: Endotracheal tube and orogastric tube in place. Neck: Supple, trachea midline. Chest: Transmitted breath sounds bilaterally. Decreased air entry bilaterally. No wheezing. Bibasilar crackles. Cardio vascular: Positive S1, positive S2. Regular rate and rhythm. Abdomen: Positive bowel sounds in all 4 quadrants. Soft, nontender, nondistended. : Kaur in place. Normal external genitalia. Rectal: Deferred Skin: Warm, dry. Intact. Extremities: 2+ radial pulses bilaterally. No lower extremity edema. Neuro: Sedated. laboratory and microbiology Laboratory Tests 03/08/24 03:30 Test 03/08/24 03:30 Range/Units Serum Glucose 147 H 74-106 mg/dL Assessment/Plan Impression: Acute hypoxic respiratory failure On mechanical ventilator Septic shock Influenza Type A Metabolic acidosis Morbid obesity BMI 41.9 Events: Off sedation since 03/05/24 On vent support Vent settings: AC mode with RR 20, VT 400, PEEP 5, FiO2 30% ABG reviewed, compensated. Continue antibiotics - meropenem On Levophed at 2 micrograms/minute Titrate to keep mean arterial pressure greater than 65 mmHg Improved pressor requirements Continue tube feeds for nutritional support. CPAP trial once awake, alert, following commands. Rest of plan as outlined below Plan: s/p intubation, on mechanical ventilator Vent settings: AC mode with RR 20, VT 400, PEEP 5, FiO2 30% On pressors for hemodynamic support Titrate to keep MAP above 65 mmHg Off sedation Continue Tamiflu course. Continue antibiotics Accu-Cheks, ISS Monitor renal function Monitor electrolytes - supplement as necessary Monitor ins and outs GI/DVT prophylaxis Prognosis: Poor given patient's multiple co-morbidities. Condition: Critical Rest of plan per hospitalist and other consultants. A total of 35 minutes of critical care time was spent reviewing the patient record, examining the patient, making a diagnostic and therapeutic plan, discussing this plan with the medical personnel, following up on diagnostic studies and following the patient for clinical stability excluding any and all procedures. At least 50% of this time was spent in direct, [id number] contact. Thank you, KATHRYN Montero, for allowing me to participate in this patient's care. Further recommendations will depend on the patient's clinical course. Please do not hesitate to contact me if you have any questions or concerns. This medical document was created using an electronic medical record system with [employer] dictation system. Although these documentations are being carefully reviewed, there may still be some phonetic and typographical changes. The errors are purely typographical, due to imperfection on the software program, and do not reflect any compromise in the patient's medical care. Dietary Evaluation Review Comments: TF Nepro 30ml/hr provides Pt's needs 100% for protein, 127% of energy. advanc eto Renal standard diet when pt is off vent and pass speech eval. Expected Outcomes/Goals: diet to advance Plan discussed with: Other (MAYA Marie) Critical Care Time(min): 35 ANNETTE PAINTER MD Mar 08, 2024 23:47
[2024-03-09] VITALS (105 sets, daily range): BP systolic 85–147; BP diastolic 10–90; PULSE 66–103; RESP 16–28; TEMP 97.7–99; O2SAT 92–100
[2024-03-09 04:15] LABS: Albumin 3.2 g/dL (3.2-4.8); Anion Gap 9 (5-15); Chloride 99 mmol/L (98-107); Sodium 140 mmol/L (136-145)
[2024-03-09 04:16] LABS: Bilirubin, Total 0.7 mg/dL (0.2-1.0); Total Protein 6.1 g/dL (5.7-8.2)
[2024-03-09 04:25] LABS: Basophils # (auto) 0.1 10 ^3/uL (0-0.2); Basophils % (auto) 1.5 % (0.0-2.0); Eosinophils # (auto) 0.1 10 ^3/uL (0-0.8); Eosinophils % (auto) 2.2 % (0.0-7.0); Hematocrit 39.1 % (36.0-46.0); Hemoglobin 13.1 g/dL (12.2-16.2); Lymphocytes # (auto) 0.7 10 ^3/uL (0.4-5.4); Lymphocytes % (auto) 12.3 % (10.0-50.0); Mean Corpuscular Hemoglobin 32.2 pg (28.0-32.0); Mean Corpuscular Hgb Conc. 33.5 g/dL (32.0-36.0); Mean Corpuscular Volume 96.2 fL (80.0-100.0); Monocytes # (auto) 0.6 10 ^3/uL (0-1.3); Monocytes % (auto) 10.6 % (0.0-12.0); Neutrophils # (auto) 3.9 10 ^3/uL (1.6-8.6); Neutrophils % (auto) 73.4 % (37.0-80.0); Nucleated Red Blood Cells % 0.3 %; Platelet Count (auto) 79 10^3/uL (140-450); Red Blood Cells 4.07 10^6/uL (4.0-5.20); Red Cell Distribution Width 14.9 % (11.8-14.3); White Blood Cell 5.3 10^3/uL (4.4-10.8)
[2024-03-09 04:32] LABS: Alanine Aminotransferase 104 U/L (7-40); Alkaline Phosphatase 210 U/L (46-116); Aspartate Aminotransferase 76 U/L (13-40); Blood Urea Nitrogen 50 mg/dL (9-23); Carbon Dioxide 32 mmol/L (20-31); Glucose 232 mg/dL (74-106)
--- NOTE | 2024-03-09 04:58 | DVH ---
CHEST RADIOGRAPH Indication: PATIENT INTUBATED Technique: Single frontal view of the chest was obtained Comparison: XY CHEST XRAY 1 VIEW on DOS: 03/07/24 FINDINGS: Lines and Tubes: The endotracheal tube terminates 3.7 cm above the sia. Right central venous bre ter terminates in the right atrium. The enteric tube courses below the left hemidiaphragm and the tip extends outside the field of view. Lungs: Diffuse bilateral opacities. Pleura: No effusion. No pneumothorax. Cardiomediastinal contours: Cardiomegaly. Bones: No acute osseous abnormality. IMPRESSION: 1. Stable position of the support lines and tubes. 2. Bilateral airspace disease compatible with multifocal pneumonia.
[2024-03-09 07:50] LABS: Base Excess 3.2 mmol/L (-2.0-3.0)
--- NOTE | 2024-03-09 15:03 | MEDREC ---
[facility] ASP Intervention Section I [facility] ASP Intervention: Deescalate AB based on CS (9 DAYS ON BROAD SPECTRUM ANTIBIOTICS (MEROPENEM + VANCOMYCIN) - NO GROWTH IN BLOOD CULTURE, NORMAL OROPHARYNGEAL ELADIO IN SPUTUM CULTURE, MRSA NARES NEGATIVE - PLEASE CONSIDER D/C OR DE-ESCALATION OF ANTIBIOTICS ) DAMON MARTINEZ PHARMACIST Mar 09, 2024 15:03
--- NOTE | 2024-03-09 19:23 | DVHPNRES ---
Progress Note Date Seen: Mar 09, 2024 Resident Creating Document: HUE SANDOVAL RESIDENT Medical Necessity Reason Pt with a Central, PICC or Fol: Yes The following are medically ne: Central Line, Kaur Catheter Reason for kaur catheter: Strict I&O Subjective Review of Systems This is a 74-year-old female patient with PMHx of diabetes mellitus type 2, ESRD on hemodialysis with [facility] Saturday//Saturday - makes urine, atrial fibrillation on Eliquis, hypertension, dyslipidemia, obesity who presented to the ER with a chief complaint of shortness of breath and flu-like symptoms. Patient lives with her daughter who reports that patient suddenly got sick on 03/01 and she has productive cough with phlegm and was choking on her phlegm, associated with shortness of breaths, nausea vomiting and diarrhea. Later the patient could not recognize and was altered therefore EMS was called and patient was found to be hypotensive and bradycardic into 40s. She received 1 dose of atropine EN route. Initially EKG at our facility showed AFib +prolonged QTC. Cardiology was consulted who recommended holding anticoagulation given the low platelet count and holding off beta ayleen as the patient required pressors. Patient was intubated on 03/01 and ABG shows anion gap metabolic acidosis with respiratory acidosis. Base deficit was-14. She was diagnosed with influenza a infection. Also started on oseltamivir 30 mg post hemodialysis, Lokelma, amiodarone. An echo was done which showed LVEF 60%, RV in LA was enlarged. Moderate TR. She received IV vancomycin and meropenem. Preliminary blood cultures are negative. Respiratory Gram stain shows Gram-positive cocci in chains. Head CT was done which was unremarkable. They were ultrasound shows fatty liver and right-sided pleural effusion. Previously admitted at this hospital with a complaint of fall in August 2023 Past surgical history: Neck surgery 4 years back Home medications unknown 03/03-Patient seen and examined in ER bed 6. Amiodarone was DC as the patient was bradycardic into late 40s. ABG shows metabolic acidosis with compensation, base deficit is now -4. CPAP trial in the a.m.. EKG repeat shows atrial fibrillation with pulse rate 58 beats per minute. 03/04 - patient seen and examined at the bedside. Intermittent bradycardic into 50s. Telemetry reviewed, shows atrial fibrillation, heart rate going low as 45. Completed CPAP trial today, patient is not alert. CPAP trial tomorrow. Discontinue Lovenox. Currently on Levophed 4 Start Precedex if needed, otherwise keep minimally sedated. 03/05 - overnight temperature 99.0 F. heart rate goes to 54 beats per minute, telemetry reviewed, shows irregular rhythm, rate in 50s. Hemodialysis completed today, 2 L . Prelim blood culture negative. Respiratory culture negative. Anion gap increased to 17.. Respiratory culture. 03/06 - patient seen and examined at the bedside. Patient is opening eyes to stimulation but less than 10 seconds. On Levophed 2. CPAP trial failed, patient is apneic. 03/07 - patient seen and examined. Low tidal volumes on CPAP trial. Patient did not responsive. MRI brain Pending. Patient is off sedation since 03/05. discontinue vancomycin. Objective vital signs Vital Sign Date Time Temp Pulse Resp B/P (MAP) Pulse Ox O2 Delivery O2 Flow Rate FiO2 03/09/24 18:30 78 23 122/26 (58) 100 03/09/24 18:15 30 03/09/24 18:15 Mechanical Ventilator+ 03/09/24 16:15 98.1 98.1 Total Intake and Output 03/08/24 03/08/24 03/09/24 15:00 23:00 07:00 Intake Total 80.00 ml 30.00 ml 327.00 ml Output Total 0 ml Balance 80.00 ml 30.00 ml 327.00 ml medications Current Medications Medications Dose Ordered Sig/Ariela Route Start Time Stop Time Status Last Admin Dose Admin Fentanyl Citrate 250 ml @ 2.5 mls/hr Q24H IV 03/01/24 00:30 03/03/24 23:17 15 MLS/HR Midazolam HCl 50 ml @ 1 mls/hr Q24H IV 03/01/24 06:00 03/04/24 05:55 2 MLS/HR Diagnostic Test (Pha) 1 strip Q6HR 03/01/24 12:00 03/09/24 18:27 1 STRIP Insulin Human Regular Q6HR SC 03/01/24 12:00 03/09/24 12:30 2 UNITS Dextrose 50 ml UD PRN IV 03/01/24 08:00 Meropenem 50 ml @ 17 mls/hr DAILY IV 03/02/24 10:00 03/09/24 10:29 17 MLS/HR Ipratropium [place] 0.5 mg Q6HPRN PRN NEB 03/02/24 00:00 03/09/24 18:26 0.5 MG Amiodarone HCl 250 ml @ 16.667 mls/ hr Q15H IV 03/02/24 08:00 Hold 03/02/24 08:00 16.667 MLS/HR Levalbuterol HCl 0.625 mg Q6HPRN PRN NEB 03/02/24 06:00 03/09/24 18:26 0.625 MG Pantoprazole Sodium 40 mg DAILY IV 03/03/24 10:00 03/09/24 10:29 40 MG Dexmedetomidine HCl 400 mcg/ Dextrose 100 ml @ 4.545 mls/ hr Q22H1M IV 03/04/24 15:30 Enteral Nutritional Formula 1,000 ml 30ML/HR GT 03/04/24 15:30 03/08/24 12:49 1,000 ML Norepinephrine Bitartrate 250 ml @ 0.938 mls/ hr Q24H IV 03/06/24 10:30 03/09/24 10:29 3.75 MLS/HR Examination Elderly obese female patient lying in bed, intubated and mechanically ventilated, RASS -3, off sedation, opening eyes to stimulation briefly less than 10 seconds General: Obese, afebrile, palor, mucosae are moist, opening eyes spontaneously but not responsive Cardiovascular: Irregular S1 and S2. No murmurs, gallops or rubs. No JVD elevation. 1+ pitting edema Respiratory: Bilateral crackles heard. Saturating 98 on 30% FiO2. Abdomen: Soft, nontender, nondistended, hypoactive bowel sounds, no rebound tenderness, no organomegaly, no masses. Stage I decubitus perianal seen. Genitourinary: Kaur seen draining 15 cc of red urine MSK/skin: Skin is dry and warm Neurological: Pupils are isocoric and reactive. laboratory and microbiology Laboratory Tests 03/09/24 03:20 Test 03/09/24 03:20 Range/Units Serum Glucose 232 H 74-106 mg/dL Microbiology Date/Time Source Procedure Growth Status 03/05/24 22:30 Nose MRSA Screen - Final Complete 03/05/24 04:00 Urine - [place]aur [place] Urine Culture - Final Complete 03/02/24 19:24 Blood Blood Culture - Final NO GROWTH AFTER 5 DAYS OF INCUBATION. Complete 03/01/24 00:55 Sputum Gram Stain - Final Complete 03/01/24 00:55 Sputum Respiratory Culture - Final Complete Labs and/or images reviewed: Labs reviewed by me, Image(s) reviewed by me Problem List/Assessment/Plan Problem List/Assessment/Plan NEUROLOGY Altered level of consciousness due to toxic versus metabolic encephalopathy Head CT completed 03/01 unremarkable MRI brain pending CARDIOVASCULAR Septic shock secondary to superimposed bacterial pneumonia on influenza a infection Hypertension Unspecified Atrial fibrillation on Ovgrfpm-NFTDM-IMWl score 4, has bled score 2 Dyslipidemia Elevated troponins likely NSTEMI type 2 Bradycardia Moderate TR Echocardiogram completed, shows LVEF 60%. RV and LA enlarged. Moderate TR Cardiology consulted-initiate therapeutic Lovenox renal dosing, transition to NOAC when appropriate. Beta ayleen when off the pressor. Hold amiodarone given bradycardia Received amiodarone 0.5 mg/minute starting 03/02, currently on hold given the bradycardia RESPIRATORY Acute hypoxic respiratory failure secondary to septic shock due to bacterial pneumonia superimposed on influenza infection Intubated and mechanically ventilated Oseltamivir 30 mg postdialysis daily starting 03/02 Levalbuterol and ipratropium nebulized treatment Completed CPAP trial 03/04. Patient not alert 03/09 CPAP trial failed, low tidal volumes. CPAP trial in a.m. GI Transaminitis History of cholecystectomy Downtrending Liver ultrasound shows fatty infiltration of a normal-sized liver. Right pleural effusion. /KIDNEY ESRD on hemodialysis with [facility]-Saturday//Saturday Bilateral small atrophic kidneys Nephrology consulted-recommended fluid restriction, Epogen 28939 IV post HD. Continue HD Lokelma t.i.d. starting 03/02 ENDO Diabetes mellitus type 2-hemoglobin A1c 6.8 On ISS METABOLIC Anion gap metabolic acidosis secondary to lactic acidosis Morbid obesity ID Septic shock secondary to superimposed bacterial pneumonia on influenza a infection Blood cultures negative preliminary Respiratory g stain shows Gram-positive cocci in chains Discontinued IV vancomycin 03/01 till 03/09 Continue meropenem starting 03/02 Urine culture pending HEM-ONCO Thrombocytopenia Monitor LINES Intubated 03/01 Left subclavian CVC placed 03/01 DRIPS Versed 00 Fentanyl 0 Levophed 2 Vasopressin 0 NUTRITION: Nepro started 03/03 30 mL per hour DVT: On hold given hematuria and low platelets Goals of care/advance care planning; FULL CODE; discussed on 03/03 with the daughter over the phone call for 24 minutes. PUD prophylaxis: Pantoprazole 40 mg IV daily DVT prophylaxis: Enoxaparin 90 mg sc daily Plan discussed with daughter Dasia over the phone call - [phone] in which all questions have been answered Critical care time including review of the case, discussing with the patient's family and nurses excluding procedures: 59 minutes Case discussed with Dr. Chen. CPAP trial failed, low tidal volumes. CPAP trial in the a.m. MRI brain pending Plan discussed with: Patient My Orders My Orders Orders - HUE SANDOVAL Procedure Category Date Status Time Cpap Trial For Am ORDERS 03/09/24 Transmitted 06:54 Brain Head Wo Contrast MRI 03/09/24 Logged 17:58 Rapid Influenza A&B LAB 03/09/24 Logged 18:48 Dietary Evaluation Review Comments: TF Nepro 30ml/hr provides Pt's needs 100% for protein, 127% of energy. advanc eto Renal standard diet when pt is off vent and pass speech eval. Expected Outcomes/Goals: diet to advance Date of Service: Mar 09, 2024 Billing Provider: KATIANA CHEN MD Common Visit Codes: [id number] CARE 30-74 MIN HUE SANDOVAL Mar 09, 2024 19:23 KATIANA CHEN MD Mar 10, 2024 10:34
--- NOTE | 2024-03-09 19:40 | DVHPN2 ---
Progress Note Date Seen: Mar 09, 2024 Medical Necessity Reason Pt with a Central, PICC or Fol: Yes The following are medically ne: Central Line, Kaur Catheter Reason for kaur catheter: Strict I&O Subjective Patient reports: Other (no events) Review of Systems: Deferred Objective vital signs Vital Sign Date Time Temp Pulse Resp B/P (MAP) Pulse Ox O2 Delivery O2 Flow Rate FiO2 03/09/24 19:15 90 21 123/26 (58) 100 03/09/24 18:15 30 03/09/24 18:15 Mechanical Ventilator+ 03/09/24 16:15 98.1 98.1 Total Intake and Output 03/08/24 03/08/24 03/09/24 15:00 23:00 07:00 Intake Total 80.00 ml 30.00 ml 327.00 ml Output Total 0 ml Balance 80.00 ml 30.00 ml 327.00 ml medications Current Medications Medications Dose Ordered Sig/Ariela Route Start Time Stop Time Status Last Admin Dose Admin Fentanyl Citrate 250 ml @ 2.5 mls/hr Q24H IV 03/01/24 00:30 03/03/24 23:17 15 MLS/HR Midazolam HCl 50 ml @ 1 mls/hr Q24H IV 03/01/24 06:00 03/04/24 05:55 2 MLS/HR Diagnostic Test (Pha) 1 strip Q6HR 03/01/24 12:00 03/09/24 18:27 1 STRIP Insulin Human Regular Q6HR SC 03/01/24 12:00 03/09/24 12:30 2 UNITS Dextrose 50 ml UD PRN IV 03/01/24 08:00 Meropenem 50 ml @ 17 mls/hr DAILY IV 03/02/24 10:00 03/09/24 10:29 17 MLS/HR Ipratropium [place] 0.5 mg Q6HPRN PRN NEB 03/02/24 00:00 03/09/24 18:26 0.5 MG Amiodarone HCl 250 ml @ 16.667 mls/ hr Q15H IV 03/02/24 08:00 Hold 03/02/24 08:00 16.667 MLS/HR Levalbuterol HCl 0.625 mg Q6HPRN PRN NEB 03/02/24 06:00 03/09/24 18:26 0.625 MG Pantoprazole Sodium 40 mg DAILY IV 03/03/24 10:00 03/09/24 10:29 40 MG Dexmedetomidine HCl 400 mcg/ Dextrose 100 ml @ 4.545 mls/ hr Q22H1M IV 03/04/24 15:30 Enteral Nutritional Formula 1,000 ml 30ML/HR GT 03/04/24 15:30 03/08/24 12:49 1,000 ML Norepinephrine Bitartrate 250 ml @ 0.938 mls/ hr Q24H IV 03/06/24 10:30 03/09/24 10:29 3.75 MLS/HR Examination: HEENT:Abnormal, MSK:Abnormal, NEURO:Abnormal laboratory and microbiology Laboratory Tests 03/09/24 03:20 Test 03/09/24 03:20 Range/Units Serum Glucose 232 H 74-106 mg/dL Microbiology Date/Time Source Procedure Growth Status 03/05/24 22:30 Nose MRSA Screen - Final Complete 03/05/24 04:00 Urine - [place]aur [place] Urine Culture - Final Complete 03/02/24 19:24 Blood Blood Culture - Final NO GROWTH AFTER 5 DAYS OF INCUBATION. Complete 03/01/24 00:55 Sputum Gram Stain - Final Complete 03/01/24 00:55 Sputum Respiratory Culture - Final Complete Problem List/Assessment/Plan Problem List/Assessment/Plan ESRD on dialysis Acute hypoxemic respiratory failure, intubated on ventilator Pneumonia HTN Sepsis Transaminitis Hyperphosphatemia recs HD tomorrow Plan discussed with: Other Dietary Evaluation Review Comments: TF Nepro 30ml/hr provides Pt's needs 100% for protein, 127% of energy. advanc eto Renal standard diet when pt is off vent and pass speech eval. Expected Outcomes/Goals: diet to advance JEANNE JEONG MD Mar 09, 2024 19:40
[2024-03-09 20:17] LABS: Rapid Influenza B Negative (Negative)
[2024-03-09 20:19] LABS: Rapid Influenza A Positive (Negative)
[2024-03-10] VITALS (103 sets, daily range): BP systolic 55–149; BP diastolic 16–68; PULSE 65–116; RESP 18–44; TEMP 97.7–99.5; O2SAT 92–100
[2024-03-10 03:32] LABS: Base Excess 3.2 mmol/L (-2.0-3.0)
[2024-03-10 04:33] LABS: Chloride 99 mmol/L (98-107); Potassium 3.9 mmol/L (3.5-5.1); Sodium 142 mmol/L (136-145)
[2024-03-10 04:35] LABS: Anion Gap 13 (5-15); Calcium 9.3 mg/dL (8.7-10.4); Carbon Dioxide 30 mmol/L (20-31)
[2024-03-10 04:38] LABS: Basophils # (auto) 0.1 10 ^3/uL (0-0.2); Eosinophils # (auto) 0.1 10 ^3/uL (0-0.8); Eosinophils % (auto) 1.8 % (0.0-7.0); Hematocrit 37.4 % (36.0-46.0); Hemoglobin 12.4 g/dL (12.2-16.2); Lymphocytes # (auto) 0.7 10 ^3/uL (0.4-5.4); Lymphocytes % (auto) 11.7 % (10.0-50.0); Mean Corpuscular Hemoglobin 31.8 pg (28.0-32.0); Mean Corpuscular Hgb Conc. 33.1 g/dL (32.0-36.0); Monocytes # (auto) 0.6 10 ^3/uL (0-1.3); Monocytes % (auto) 9.3 % (0.0-12.0); Neutrophils # (auto) 4.5 10 ^3/uL (1.6-8.6); Neutrophils % (auto) 76.2 % (37.0-80.0); Nucleated Red Blood Cells % 0.1 %; Platelet Count (auto) 97 10^3/uL (140-450); Red Blood Cells 3.89 10^6/uL (4.0-5.20); Red Cell Distribution Width 14.3 % (11.8-14.3); White Blood Cell 5.9 10^3/uL (4.4-10.8)
[2024-03-10 04:40] LABS: Magnesium 2.5 mg/dL (1.6-2.6)
[2024-03-10 04:54] LABS: Blood Urea Nitrogen 58 mg/dL (9-23); Glucose 188 mg/dL (74-106)
--- NOTE | 2024-03-10 05:03 | DVH ---
CHEST RADIOGRAPH Indication: f/u Technique: Single frontal view of the chest was obtained COMPARISON: XY CHEST PORTABLE on DOS: 03/09/24, XY CHEST XRAY 1 VIEW on DOS: 03/07/24, XY CHEST XRAY 1 EW on DOS: 03/06/24, XY CHEST XRAY 1 VIEW on DOS: 03/05/24, XY CHEST XRAY 1 VIEW on DOS: 03/04/24, XY CHEST PORTABLE on DOS: 03/02/24 FINDINGS: Lines and Tubes: Endotracheal tube and enteric catheter in satisfactory position. Right central venou s catheter in satisfactory position. Lungs: Multifocal airspace disease. Pleura: No effusion. No pneumothorax. Cardiomediastinal contours: Unremarkable Bones: Unremarkable IMPRESSION: Lines and tubes in satisfactory position. No significant interval change.
--- NOTE | 2024-03-10 06:24 | DVHPNRES ---
Progress Note Date Seen: Mar 10, 2024 Resident Creating Document: HUE SANDOVLA RESIDENT Medical Necessity Reason Pt with a Central, PICC or Fol: Yes The following are medically ne: Central Line, Kaur Catheter Reason for kaur catheter: Strict I&O Subjective Review of Systems This is a 74-year-old female patient with PMHx of diabetes mellitus type 2, ESRD on hemodialysis with [facility] Saturday//Saturday - makes urine, atrial fibrillation on Eliquis, hypertension, dyslipidemia, obesity who presented to the ER with a chief complaint of shortness of breath and flu-like symptoms. Patient lives with her daughter who reports that patient suddenly got sick on 03/01 and she has productive cough with phlegm and was choking on her phlegm, associated with shortness of breaths, nausea vomiting and diarrhea. Later the patient could not recognize and was altered therefore EMS was called and patient was found to be hypotensive and bradycardic into 40s. She received 1 dose of atropine EN route. Initially EKG at our facility showed AFib +prolonged QTC. Cardiology was consulted who recommended holding anticoagulation given the low platelet count and holding off beta ayleen as the patient required pressors. Patient was intubated on 03/01 and ABG shows anion gap metabolic acidosis with respiratory acidosis. Base deficit was-14. She was diagnosed with influenza a infection. Also started on oseltamivir 30 mg post hemodialysis, Lokelma, amiodarone. An echo was done which showed LVEF 60%, RV in LA was enlarged. Moderate TR. She received IV vancomycin and meropenem. Preliminary blood cultures are negative. Respiratory Gram stain shows Gram-positive cocci in chains. Head CT was done which was unremarkable. They were ultrasound shows fatty liver and right-sided pleural effusion. Previously admitted at this hospital with a complaint of fall in August 2023 Past surgical history: Neck surgery 4 years back Home medications unknown patient seen and examined. MRI brain showed No acute intracranial process identified. Pt was hypotensive after MRI, Levophed increased to 14. HD today. Objective vital signs Vital Sign Date Time Temp Pulse Resp B/P (MAP) Pulse Ox O2 Delivery O2 Flow Rate FiO2 03/10/24 06:00 22 99 Mechanical Ventilator+ 30 30 03/10/24 06:00 75 114/31 (58) 03/10/24 04:15 98.4 98.4 Total Intake and Output 03/09/24 03/09/24 03/10/24 15:00 23:00 07:00 Intake Total 81.00 ml 18.279 ml 246.022 ml Output Total 5 ml Balance 81.00 ml 13.279 ml 246.022 ml medications Current Medications Medications Dose Ordered Sig/Ariela Route Start Time Stop Time Status Last Admin Dose Admin Midazolam HCl 50 ml @ 1 mls/hr Q24H IV 03/01/24 06:00 03/04/24 05:55 2 MLS/HR Diagnostic Test (Pha) 1 strip Q6HR 03/01/24 12:00 03/10/24 06:14 1 STRIP Insulin Human Regular Q6HR SC 03/01/24 12:00 03/10/24 06:14 3 UNITS Dextrose 50 ml UD PRN IV 03/01/24 08:00 Meropenem 50 ml @ 17 mls/hr DAILY IV 03/02/24 10:00 03/09/24 10:29 17 MLS/HR Ipratropium [place] 0.5 mg Q6HPRN PRN NEB 03/02/24 00:00 03/10/24 00:17 0.5 MG Amiodarone HCl 250 ml @ 16.667 mls/ hr Q15H IV 03/02/24 08:00 Hold 03/02/24 08:00 16.667 MLS/HR Levalbuterol HCl 0.625 mg Q6HPRN PRN NEB 03/02/24 06:00 03/10/24 00:17 0.625 MG Pantoprazole Sodium 40 mg DAILY IV 03/03/24 10:00 03/09/24 10:29 40 MG Dexmedetomidine HCl 400 mcg/ Dextrose 100 ml @ 4.545 mls/ hr Q22H1M IV 03/04/24 15:30 03/10/24 00:39 4.545 MLS/HR Enteral Nutritional Formula 1,000 ml 30ML/HR GT 03/04/24 15:30 03/08/24 12:49 1,000 ML Norepinephrine Bitartrate 250 ml @ 0.938 mls/ hr Q24H IV 03/06/24 10:30 03/09/24 10:29 3.75 MLS/HR Examination Elderly obese female patient lying in bed, intubated and mechanically ventilated, RASS -3, off sedation, opening eyes to stimulation briefly less than 10 seconds General: Obese, afebrile, palor, mucosae are moist, opening eyes spontaneously but not responsive Cardiovascular: Irregular S1 and S2. No murmurs, gallops or rubs. No JVD elevation. 1+ pitting edema Respiratory: Bilateral crackles heard. Saturating 98 on 30% FiO2. Abdomen: Soft, nontender, nondistended, hypoactive bowel sounds, no rebound tenderness, no organomegaly, no masses. Stage I decubitus perianal seen. Genitourinary: Kaur seen draining 15 cc of red urine MSK/skin: Skin is dry and warm Neurological: Pupils are isocoric and reactive. laboratory and microbiology Laboratory Tests 03/10/24 03:30 Test 03/10/24 03:30 Range/Units Serum Glucose 188 H 74-106 mg/dL Microbiology Date/Time Source Procedure Growth Status 03/05/24 22:30 Nose MRSA Screen - Final Complete 03/05/24 04:00 Urine - [place]aur [place] Urine Culture - Final Complete 03/02/24 19:24 Blood Blood Culture - Final NO GROWTH AFTER 5 DAYS OF INCUBATION. Complete 03/01/24 00:55 Sputum Gram Stain - Final Complete 03/01/24 00:55 Sputum Respiratory Culture - Final Complete Labs and/or images reviewed: Labs reviewed by me, Image(s) reviewed by me Problem List/Assessment/Plan Problem List/Assessment/Plan NEUROLOGY Altered level of consciousness due to toxic versus metabolic encephalopathy Head CT completed 03/01 unremarkable MRI brain showed No acute intracranial process identified. CARDIOVASCULAR Septic shock secondary to superimposed bacterial pneumonia on influenza a infection Hypertension Unspecified Atrial fibrillation on Gyhxtow-TCCMK-HBBg score 4, has bled score 2 Dyslipidemia Elevated troponins likely NSTEMI type 2 Bradycardia Moderate TR Echocardiogram completed, shows LVEF 60%. RV and LA enlarged. Moderate TR Cardiology consulted-initiate therapeutic Lovenox renal dosing, transition to NOAC when appropriate. Beta ayleen when off the pressor. Hold amiodarone given bradycardia Received amiodarone 0.5 mg/minute starting 03/02, currently on hold given the bradycardia RESPIRATORY Acute hypoxic respiratory failure secondary to septic shock due to bacterial pneumonia superimposed on influenza infection Intubated and mechanically ventilated Oseltamivir 30 mg postdialysis daily starting 03/02 Levalbuterol and ipratropium nebulized treatment Completed CPAP trial 03/04. Patient not alert 1/6 CPAP trial failed, low tidal volumes. CPAP trial in a.m. GI Transaminitis History of cholecystectomy Downtrending Liver ultrasound shows fatty infiltration of a normal-sized liver. Right pleural effusion. /KIDNEY ESRD on hemodialysis with [facility]-Saturday//Saturday Bilateral small atrophic kidneys Nephrology consulted-recommended fluid restriction, Epogen [id number] IV post HD. Continue HD Lokelma t.i.d. starting 03/02 ENDO Diabetes mellitus type 2-hemoglobin A1c 6.8 On ISS METABOLIC Anion gap metabolic acidosis secondary to lactic acidosis Morbid obesity ID Septic shock secondary to superimposed bacterial pneumonia on influenza a infection Blood cultures negative preliminary Respiratory g stain shows Gram-positive cocci in chains Discontinued IV vancomycin 03/01 till 03/09 Continue meropenem starting 03/02 Urine culture pending HEM-ONCO Thrombocytopenia Monitor LINES Intubated 03/01 Left subclavian CVC placed 03/01 DRIPS Versed 00 Fentanyl 0 Levophed 14 Vasopressin 0 NUTRITION: Nepro started 03/03 30 mL per hour DVT: On hold given hematuria and low platelets Goals of care/advance care planning; FULL CODE; discussed on 03/03 with the daughter over the phone call for 24 minutes. PUD prophylaxis: Pantoprazole 40 mg IV daily DVT prophylaxis: Enoxaparin 90 mg sc daily Plan discussed with daughter Dasia over the phone call - [phone] in which all questions have been answered Critical care time including review of the case, discussing with the patient's family and nurses excluding procedures: 59 minutes Case discussed with Dr. Chen. CPAP trial in the a.m. Plan discussed with: Patient My Orders My Orders Orders - HUE SANDOVAL RESIDENT Procedure Category Date Status Time Cpap Trial For Am ORDERS 03/09/24 Transmitted 06:54 Brain Head Wo Contrast MRI 03/09/24 Logged 17:58 Abg W/ Co-Ox RT 03/10/24 Logged 04:00 Cpap Trial For Am ORDERS 03/10/24 Transmitted 04:00 Chest Portable XY 03/10/24 Resulted 04:00 Dietary Evaluation Review Comments: TF Nepro 30ml/hr provides Pt's needs 100% for protein, 127% of energy. advanc eto Renal standard diet when pt is off vent and pass speech eval. Expected Outcomes/Goals: diet to advance Date of Service: Mar 10, 2024 Billing Provider: KATIANA CHEN MD Common Visit Codes: [id number] CARE 30-74 MIN HUE SANDOVAL RESIDENT Mar 10, 2024 06:24 KATIANA CHEN MD Mar 11, 2024 10:06
--- NOTE | 2024-03-10 09:57 | DVH ---
EXAM: MRI BRAIN HEAD WO CONTRAST HISTORY: ALOC COMPARISON: None TECHNIQUE: MRI was performed utilizing multiple appropriate imaging planes and pulse sequences. FINDINGS: SUPRATENTORIAL REGION: No evidence for acute ischemia or intracranial hemorrhage. POSTERIOR FOSSA: Unremarkable. BRAINSTEM: Unremarkable. SELLAR/SUPRASELLAR REGION: Unremarkable. VENTRICLES, CISTERNS, SULCI: Age-appropriate. ORBITS: Unremarkable. PARANASAL SINUSES: Mild diffuse sinus mucosal thickening noted. Trace fluid in the sphenoid sinuses . MASTOID AIR CELLS: Complete fluid opacification of the bilateral mastoid air cells noted. VASCULATURE: Unremarkable. BONES/ SOFT TISSUES: Unremarkable. OTHER: None. IMPRESSION: 1. No acute intracranial process identified. 2. Large bilateral mastoid effusions. 3. Acute paranasal sinusitis with air-fluid levels noted in sphenoid sinuses.
[2024-03-10] MEDS ORDERED: NOREPINEPHRINE 8 MG/250ML KIT 250 ML IV SCH (10:00)
[2024-03-10] MEDS: NOREPINEPHRINE 8 MG/250ML KIT 250 ML IV SCH (11:45)
[2024-03-10] MEDS: ALBUMIN 25% 100 ML IV ONE (14:55)
--- NOTE | 2024-03-10 15:47 | DVHPN2 ---
Progress Note Date Seen: Mar 10, 2024 Medical Necessity Reason Pt with a Central, PICC or Fol: Yes The following are medically ne: Central Line, Kaur Catheter Reason for kaur catheter: Strict I&O Subjective Patient reports: Other (intubated) Objective vital signs Vital Sign Date Time Temp Pulse Resp B/P (MAP) Pulse Ox O2 Delivery O2 Flow Rate FiO2 03/10/24 15:06 88/38 03/10/24 14:22 101 20 95 30 03/10/24 06:00 Mechanical Ventilator+ 03/10/24 04:15 98.4 98.4 Total Intake and Output 03/09/24 03/09/24 03/10/24 15:00 23:00 07:00 Intake Total 81.00 ml 18.279 ml 246.022 ml Output Total 5 ml Balance 81.00 ml 13.279 ml 246.022 ml medications Current Medications Medications Dose Ordered Sig/Ariela Route Start Time Stop Time Status Last Admin Dose Admin Midazolam HCl 50 ml @ 1 mls/hr Q24H IV 03/01/24 06:00 03/04/24 05:55 2 MLS/HR Diagnostic Test (Pha) 1 strip Q6HR 03/01/24 12:00 03/10/24 11:42 1 STRIP Insulin Human Regular Q6HR SC 03/01/24 12:00 03/10/24 11:42 3 UNITS Dextrose 50 ml UD PRN IV 03/01/24 08:00 Meropenem 50 ml @ 17 mls/hr DAILY IV 03/02/24 10:00 03/10/24 11:30 17 MLS/HR Ipratropium [place] 0.5 mg Q6HPRN PRN NEB 03/02/24 00:00 03/10/24 00:17 0.5 MG Amiodarone HCl 250 ml @ 16.667 mls/ hr Q15H IV 03/02/24 08:00 Hold 03/02/24 08:00 16.667 MLS/HR Levalbuterol HCl 0.625 mg Q6HPRN PRN NEB 03/02/24 06:00 03/10/24 00:17 0.625 MG Pantoprazole Sodium 40 mg DAILY IV 03/03/24 10:00 03/10/24 11:30 40 MG Dexmedetomidine HCl 400 mcg/ Dextrose 100 ml @ 4.545 mls/ hr Q22H1M IV 03/04/24 15:30 03/10/24 00:39 4.545 MLS/HR Enteral Nutritional Formula 1,000 ml 30ML/HR GT 03/04/24 15:30 03/08/24 12:49 1,000 ML Norepinephrine Bitartrate 250 ml @ 0.938 mls/ hr Q24H IV 03/10/24 11:45 laboratory and microbiology Laboratory Tests 03/10/24 03:30 Test 03/10/24 03:30 Range/Units Serum Glucose 188 H 74-106 mg/dL Microbiology Date/Time Source Procedure Growth Status 03/05/24 22:30 Nose MRSA Screen - Final Complete 03/05/24 04:00 Urine - Kaur [place] Urine Culture - Final Complete 03/02/24 19:24 Blood Blood Culture - Final NO GROWTH AFTER 5 DAYS OF INCUBATION. Complete 03/01/24 00:55 Sputum Gram Stain - Final Complete 03/01/24 00:55 Sputum Respiratory Culture - Final Complete Problem List/Assessment/Plan Problem List/Assessment/Plan ESRD on dialysis Acute hypoxemic respiratory failure, intubated on ventilator Pneumonia/influenza + HTN Sepsis Transaminitis Hyperphosphatemia recs HD today intubated Plan discussed with: Other Dietary Evaluation Review Comments: TF Nepro 30ml/hr provides Pt's needs 100% for protein, 127% of energy. advanc eto Renal standard diet when pt is off vent and pass speech eval. Expected Outcomes/Goals: diet to advance JEANNE JEONG MD Mar 10, 2024 15:47
[2024-03-10 18:13] LABS: Magnesium 2.4 mg/dL (1.6-2.6)
[2024-03-10 18:25] LABS: Potassium 2.7 mmol/L (3.5-5.1)
[2024-03-10] MEDS: POTASSIUM CHL 20MEQ/100ML 100 ML IV SCH (21:08)
[2024-03-11] VITALS (107 sets, daily range): BP systolic 34–165; BP diastolic 10–110; PULSE 55–133; RESP 16–93; TEMP 97–98.7; O2SAT 40–100
[2024-03-11 03:45] LABS: Basophils # (auto) 0.1 10 ^3/uL (0-0.2); Basophils % (auto) 0.8 % (0.0-2.0); Eosinophils # (auto) 0 10 ^3/uL (0-0.8); Eosinophils % (auto) 0.3 % (0.0-7.0); Hematocrit 40.6 % (36.0-46.0); Lymphocytes # (auto) 0.9 10 ^3/uL (0.4-5.4); Lymphocytes % (auto) 10.2 % (10.0-50.0); Mean Corpuscular Hemoglobin 31.4 pg (28.0-32.0); Mean Corpuscular Volume 98.1 fL (80.0-100.0); Monocytes # (auto) 0.7 10 ^3/uL (0-1.3); Monocytes % (auto) 7.7 % (0.0-12.0); Neutrophils # (auto) 6.9 10 ^3/uL (1.6-8.6); Nucleated Red Blood Cells % 0.1 %; Platelet Count (auto) 120 10^3/uL (140-450); Red Blood Cells 4.14 10^6/uL (4.0-5.20); Red Cell Distribution Width 14.6 % (11.8-14.3); White Blood Cell 8.5 10^3/uL (4.4-10.8)
[2024-03-11 03:51] LABS: Albumin 3.9 g/dL (3.2-4.8); Anion Gap 14 (5-15); BUN/Creatinine Ratio 7.6 (10.0-20.0); Carbon Dioxide 24 mmol/L (20-31); Chloride 104 mmol/L (98-107); Magnesium 2.5 mg/dL (1.6-2.6); Sodium 142 mmol/L (136-145)
[2024-03-11 03:52] LABS: Total Protein 6.9 g/dL (5.7-8.2)
[2024-03-11] MEDS: AMIODARONE BOLUS KIT 100 ML IV ONE ×2 (04:17→04:30)
[2024-03-11 04:19] LABS: Alanine Aminotransferase 309 U/L (7-40); Alkaline Phosphatase 192 U/L (46-116); Aspartate Aminotransferase 1508 U/L (13-40); Bilirubin, Total 1.8 mg/dL (0.2-1.0); Blood Urea Nitrogen 47 mg/dL (9-23); Glucose 134 mg/dL (74-106)
[2024-03-11 04:20] LABS: Potassium 6.4 mmol/L (3.5-5.1)
[2024-03-11] MEDS: AMIODARONE 450mg/250ml AE 250 ML IV ONE (04:25)
[2024-03-11] MEDS: CALCIUM CHL 100MG/ML 1,000 MG in D5W 5% 100 ML IV ONE (04:30)
[2024-03-11] MEDS: SODIUM BICARB 8.4% 50Meq/50ml SYR Vial IV ONE ×4 (04:30→23:41)
[2024-03-11] MEDS: PHENYLEPHRINE IV 250 ML IV ONE ×4 (04:32→10:53)
[2024-03-11] MEDS: PHENYLEPHRINE IV 250 ML IV SCH (04:36)
[2024-03-11] MEDS: AMIODARONE 450mg/250ml AE 250 ML IV SCH (04:45)
[2024-03-11 05:36] LABS: Albumin 3.6 g/dL (3.2-4.8); Anion Gap 15 (5-15); BUN/Creatinine Ratio 6.9 (10.0-20.0); Carbon Dioxide 23 mmol/L (20-31); Chloride 105 mmol/L (98-107); Sodium 143 mmol/L (136-145)
[2024-03-11 05:37] LABS: Total Protein 6.6 g/dL (5.7-8.2)
[2024-03-11 06:05] LABS: Alanine Aminotransferase 513 U/L (7-40); Alkaline Phosphatase 215 U/L (46-116); Aspartate Aminotransferase 2892 U/L (13-40); Bilirubin, Total 1.8 mg/dL (0.2-1.0); Blood Urea Nitrogen 44 mg/dL (9-23); Glucose 125 mg/dL (74-106); Magnesium 2.6 mg/dL (1.6-2.6)
[2024-03-11 06:42] LABS: Base Excess -9.9 mmol/L (-2.0-3.0)
[2024-03-11] MEDS: NOREPINEPHRINE BITARTRATE 32 MG in SODIUM CHL 0.9% 218 ML IV SCH (07:00)
[2024-03-11] MEDS: VASOPRESSIN 20 UNITS in SODIUM CHL 0.9% 99 ML IV SCH (07:33)
--- NOTE | 2024-03-11 07:55 | RESUS ---
CODE BLUE ASSESSSMENT History of Events History of Events: 74 year old female brought in by EMS presents to the ED with a chief complaint of shortness of breath onset yesterday around 08:00. Per EMS, patient lives with daughter, began experiencing nausea, vomiting, diarrhea, shortness of breath since yesterday. Upon EMS arrival, HR was in low 40s, GCS x 15. EMS gave patient Atropine and HR went to 75-80 bpm. EMS states patient became disassociated, altered in route, HR dropped to 20s and was being paced in the 60s, patient was being bagged. Upon ED arrival patient was altered and unresponsive. Past medical history of ESRD, DM. Pt was intubated and admitted to icu. Tonight pt became bradycardic and went into pulseless v tach. Initial Information Date: Mar 11, 2024 Time: 04:10 Location of Arrest: ICU ([facility]) Arrest Witnessed: Yes CPR started initial time: 04:10 CPR started by whom: Hospital Staff Last seen well: 0410 Pre-Hospital Care: ACLS Type of arrest: Cardiac, Respiratory, Adult, Witnessed Spontaneous Respirations: No Pulse Present: No Monitoring: ECG, Pulse Oximetry, Apnea, Telemetry Crash Cart Opened and Supplies: Yes Airway Ventilation Breathing at Onset: Apneic O2 Sat by Pulse Oximetry: 0 Oxygen Delivery Method: Mechanical Ventilator Oxygen 100% Time of first Assisted Ventila: 04:10 Artificial Ventilation: Bag/Endo tube Intubation Size: 7.0 cuffed Intubated by: previously done Intubated orally: Yes Tube secured at: 20 Circulation Circulation : Time: 04:10 Pulse Rate (adult): 0 Blood Pressure Systolic: 0 Blood Pressure Diastolic: 0 Temperature (Fahrenheit): 98.7 Medications & Response Medications and Responses #1: Medication Time: 04:10 ADULT Medications Given ADULT: Epinephrine 1 mg, Sodium Bacarbinate 50 meq Route of Administration: IV Heart Rate: 0 EKG Rhythm: PEA Blood Pressure Systolic: 0 Blood Pressure Diastolic: 0 Respiratory Rate: 0 O2 Sat by Pulse Oximetry: 0 EKG Rhythm: PEA Comment no pulse 0413 Medications and Responses #2: ADULT Medications Given ADULT: Epinephrine 1 mg Route of Administration: IV Heart Rate: 0 EKG Rhythm: PEA Blood Pressure Systolic: 0 Blood Pressure Diastolic: 0 Respiratory Rate: 0 O2 Sat by Pulse Oximetry: 0 EKG Rhythm: PEA Comment pulse check 0415 ROSC, bp 87/70 hr 147 a fib Pacing Pacer Pads Applied and Pacing: Yes Procedure - NG/OG Tube Procedure - NG/OG Tube : Comment previously done Procedure - Central Venous Cat Central venous catheter site: Rt Subclavian Comment: previously done Procedure - Gabriel Catheter Comment: previously done Nurses Notes Catarino Coma Scale Eye Opening: None (1) Catarino Coma Scale Verbal: None (1) Catarino Coma Scale Motor: None (1) Pupil Reaction: Sluggish Bedside Blood Glucose: 92 EKG Rhythm: Atrial Fibrillation Time Code Ended Time Code Ended: 04:15 Post Arrest Status: Ventilated Outcome of code: Successful Family notified: Yes Attending called: Yes Code Team Present: MICHEL ADOPTION COORDINATOR, SANTOSH LUNA RESIDENT, ANNY TREJO HS, ILYA BRUSHING MACHINE OPERATOR ICU, NBA TREJO PRIMARY, JOSEPH RN, MORENITA LAFLEUR RT. Post Resuscitation Neurologica Pupil Size: 4 ROSC Time of ROSC: 04:15 Pt Meets Criteria for Therapeu: No Therapeutic Hyperthermia Start: No ANNY OSULLIVAN Mar 11, 2024 07:55
[2024-03-11] MEDS ORDERED: PHENYLEPHRINE INJ 80 MG in SODIUM CHL 0.9% 242 ML IV SCH (08:00)
[2024-03-11] MEDS: ALBUTEROL SULF 2.5 MG/0.5ML(0.5%) NEB SOLN NEB ONE (08:10)
[2024-03-11] MEDS: InsuLIN REG 1unit/0.01ml Soln (100units/ml) IV ONE (08:32)
[2024-03-11] MEDS: DEXTROSE (50%) 50ML SYRG IV ONE (08:32)
[2024-03-11] MEDS: SODIUM ZIRCONIUM CYCL 10 GM PAK PO ONE (08:45)
[2024-03-11] MEDS: EPINEPHrine HCL 250 ML IV ONE (08:50)
[2024-03-11] MEDS: EPINEPHrine HCL 250 ML IV SCH (09:00)
[2024-03-11] MEDS: SODIUM CHL 0.9% 1000 ML BAG XX ONE (09:15)
[2024-03-11] MEDS ORDERED: VANCOMYCIN PER PHARMACY 0 MG IV SCH (10:00)
--- NOTE | 2024-03-11 10:35 | ECG ---
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
--- NOTE | 2024-03-11 10:35 | ECG ---
[facility] Test Date: 2024-03-11 Test Time: 16:08:37 Pat Name: JESE JACK Department: Room: [address] [place] [address] A Gender: F Biometrician: : 1950 Requested By: JATIN PETERSEN Order Number: [id number] Reading MD: Cristi Logan Measurements Intervals [place] Rate: 117 P: 0 VA: 0 QRS: 166 QRSD: 148 T: -10 QT: 458 QTc: 638 Interpretive Statements Wide QRS rhythm; possible VT Inferior infarct , possibly acute Anterolateral infarct , age undetermined ACUTE OR Electronically Signed On 03-11-2024 12:33:16 PST by Cristi Logan Please click the below link to view image of tracing.
--- NOTE | 2024-03-11 10:38 | DVH ---
XY CHEST XRAY 1 VIEW, HISTORY: CHF COMPARISON: XY CHEST PORTABLE on DOS: 03/10/24, XY CHEST PORTABLE on DOS: 03/09/24, XY CHEST XRAY 1 VIEW on DOS: 03/07/24 XY CHEST PORTABLE on DOS: 03/10/24, XY CHEST PORTABLE on DOS: 03/09/24, XY CHEST XRAY 1 VIEW on DOS: TECHNICAL DATA: 1 view of the chest was obtained. FINDINGS: Lines and tubes: Stable lines and tubes. Cardiomediastinal silhouette: Enlarged Pulmonary vasculature: prominent Lung expansion: low Lung airspace: pathcy bilateral opacities. Lung interstitium: normal Pleura: normal Pneumothorax: no Bones: Unremarkable Other: no IMPRESSION: Stable lines and tubes. Similar lung aeration with pulmonary edema and cardiomegaly.
[2024-03-11] MEDS: ALBUMIN 25% 100 ML IV ONE ×2 (10:59→11:02)
[2024-03-11] MEDS: PHENYLEPHRINE INJ 80 MG in SODIUM CHL 0.9% 242 ML IV SCH (11:00)
[2024-03-11] MEDS: ALBUMIN 25% 100 ML IV PRN (11:05)
[2024-03-11] MEDS: VANCOMYCIN 500mg/100mL 100 ML IV ONE (11:42)
[2024-03-11] MEDS ORDERED: CALCIUM CHL(10%) 100MG/ML 10ML VIAL IV ONE (12:30)
[2024-03-11] MEDS: DEXTROSE (50%) 50ML SYRG IV PRN (14:23)
--- NOTE | 2024-03-11 14:40 | DVHPNRES ---
Progress Note Date Seen: Mar 11, 2024 Resident Creating Document: HUE SANDOVAL RESIDENT Medical Necessity Reason Pt with a Central, PICC or Fol: Yes The following are medically ne: Central Line, Kaur Catheter Reason for kaur catheter: Strict I&O Subjective Review of Systems This is a 74-year-old female patient with PMHx of diabetes mellitus type 2, ESRD on hemodialysis with [facility] Saturday//Saturday - makes urine, atrial fibrillation on Eliquis, hypertension, dyslipidemia, obesity who presented to the ER with a chief complaint of shortness of breath and flu-like symptoms. Patient lives with her daughter who reports that patient suddenly got sick on 03/01 and she has productive cough with phlegm and was choking on her phlegm, associated with shortness of breaths, nausea vomiting and diarrhea. Later the patient could not recognize and was altered therefore EMS was called and patient was found to be hypotensive and bradycardic into 40s. She received 1 dose of atropine EN route. Initially EKG at our facility showed AFib +prolonged QTC. Cardiology was consulted who recommended holding anticoagulation given the low platelet count and holding off beta ayleen as the patient required pressors. Patient was intubated on 03/01 and ABG shows anion gap metabolic acidosis with respiratory acidosis. Base deficit was-14. She was diagnosed with influenza a infection. Also started on oseltamivir 30 mg post hemodialysis, Lokelma, amiodarone. An echo was done which showed LVEF 60%, RV in LA was enlarged. Moderate TR. She received IV vancomycin and meropenem. Preliminary blood cultures are negative. Respiratory Gram stain shows Gram-positive cocci in chains. Head CT was done which was unremarkable. They were ultrasound shows fatty liver and right-sided pleural effusion. Previously admitted at this hospital with a complaint of fall in August 2023 Past surgical history: Neck surgery 4 years back Home medications unknown Patient seen and examined at the bedside. Overnight, patient experienced PEA at 4:00 a.m.. Underwent CPR and defibrillation. Since then, increased pressor requirements. Patient is on Levophed, vasopressin, epinephrine and phenylephrine. Off sedation. Amiodarone started overnight given the AFib. Potassium 6, patient underwent dialysis. Received IV calcium overnight. PEEP increased weight. FiO2 100%. Started IV vancomycin. Objective vital signs Vital Sign Date Time Temp Pulse Resp B/P (MAP) Pulse Ox O2 Delivery O2 Flow Rate FiO2 03/11/24 14:01 89 30 80/17 (38) 93 30 03/11/24 07:55 209.7 Mechanical Ventilator Total Intake and Output 03/10/24 03/10/24 03/11/24 15:00 23:00 07:00 Intake Total 148.7215 ml 441.125 ml 1580.416 ml Output Total 0 ml 0 ml 10 ml Balance 148.7215 ml 441.125 ml 1570.416 ml medications Current Medications Medications Dose Ordered Sig/Ariela Route Start Time Stop Time Status Last Admin Dose Admin Midazolam HCl 50 ml @ 1 mls/hr Q24H IV 03/01/24 06:00 03/04/24 05:55 2 MLS/HR Diagnostic Test (Pha) 1 strip Q6HR 03/01/24 12:00 03/11/24 06:23 1 STRIP Insulin Human Regular Q6HR SC 03/01/24 12:00 03/10/24 18:32 2 UNITS Dextrose 50 ml UD PRN IV 03/01/24 08:00 03/11/24 14:23 50 ML Meropenem 50 ml @ 17 mls/hr DAILY IV 03/02/24 10:00 03/11/24 11:22 17 MLS/HR Ipratropium [place] 0.5 mg Q6HPRN PRN NEB 03/02/24 00:00 03/10/24 00:17 0.5 MG Levalbuterol HCl 0.625 mg Q6HPRN PRN NEB 03/02/24 06:00 03/10/24 00:17 0.625 MG Pantoprazole Sodium 40 mg DAILY IV 03/03/24 10:00 03/11/24 11:22 40 MG Dexmedetomidine HCl 400 mcg/ Dextrose 100 ml @ 4.545 mls/ hr Q22H1M IV 03/04/24 15:30 03/10/24 00:39 4.545 MLS/HR Enteral Nutritional Formula 1,000 ml 30ML/HR GT 03/04/24 15:30 03/08/24 12:49 1,000 ML Norepinephrine Bitartrate 250 ml @ 0.938 mls/ hr Q24H IV 03/10/24 11:45 03/10/24 21:53 30 MLS/HR Norepinephrine Bitartrate 32 mg/ Sodium Chloride 250 ml @ 0.938 mls/ hr Q24H IV 03/11/24 06:45 Vasopressin 20 units/Sodium Chloride 100 ml @ 9 mls/hr Q11H7M IV 03/11/24 06:45 03/11/24 07:33 9 MLS/HR Epinephrine HCl 250 ml @ 7.5 mls/hr Q24H IV 03/11/24 09:30 Vancomycin HCl 0 ml @ 0 mls/hr UD IV 03/11/24 10:00 Albumin Human 100 ml @ 100 mls/hr PRN PRN IV 03/11/24 10:45 03/11/24 12:05 100 MLS/HR Phenylephrine HCl 80 mg/Sodium Chloride 250 ml @ 7.5 mls/hr Q24H IV 03/11/24 11:00 Dopamine HCl/ Dextrose 250 ml @ 16.763 mls/ hr [id number] IV 03/11/24 12:30 Examination Elderly obese female patient lying in bed, intubated and mechanically ventilated, on 4 pressors, off sedation General: Obese, afebrile, palor, mucosae are moist, opening eyes spontaneously but not responsive Cardiovascular: Irregular S1 and S2. No murmurs, gallops or rubs. No JVD elevation. 1+ pitting edema Respiratory: Bilateral crackles heard. Saturating 98 on 100% FiO2. Abdomen: Soft, nontender, nondistended, hypoactive bowel sounds, no rebound tenderness, no organomegaly, no masses. Stage I decubitus perianal seen. Genitourinary: Kaur seen draining 15 cc of red urine MSK/skin: Skin is dry and warm Neurological: Pupils are isocoric and reactive. laboratory and microbiology Laboratory Tests 03/11/24 12:53 03/11/24 05:10 03/11/24 03:05 Test 03/11/24 05:10 Range/Units Serum Glucose 125 H 74-106 mg/dL Microbiology Date/Time Source Procedure Growth Status 03/10/24 10:22 Trachea Gram Stain - Final Resulted 03/10/24 10:22 Trachea Respiratory Culture - Preliminary Resulted 03/05/24 04:00 Urine - Kaur [place] Urine Culture - Final Complete 03/02/24 19:24 Blood Blood Culture - Final NO GROWTH AFTER 5 DAYS OF INCUBATION. Complete 03/01/24 00:55 Sputum Gram Stain - Final Complete 03/01/24 00:55 Sputum Respiratory Culture - Final Complete Labs and/or images reviewed: Labs reviewed by me, Image(s) reviewed by me Problem List/Assessment/Plan Problem List/Assessment/Plan NEUROLOGY Altered level of consciousness due to toxic versus metabolic encephalopathy Head CT completed 03/01 unremarkable MRI brain showed No acute intracranial process identified. CARDIOVASCULAR Status post cardiac arrest 03/11 Septic/ Cardiogenic shock requiring multiple pressors secondary to superimposed bacterial pneumonia on influenza a infection Hypertension Unspecified Atrial fibrillation on Dbbtpoy-[id number]-FNTg score 4, has bled score 2 Dyslipidemia Elevated troponins likely NSTEMI type 2 Bradycardia Moderate TR Echocardiogram completed, shows LVEF 60%. RV and LA enlarged. Moderate TR Cardiology consulted-initiate therapeutic Lovenox renal dosing, transition to NOAC when appropriate. Beta ayleen when off the pressor. Hold amiodarone given bradycardia Received amiodarone 0.5 mg/minute starting 03/02, currently on hold given the bradycardia Restarted amiodarone 03/11 RESPIRATORY Acute hypoxic respiratory failure secondary to septic shock due to bacterial pneumonia superimposed on influenza infection Intubated and mechanically ventilated Oseltamivir 30 mg postdialysis daily starting 03/02 Levalbuterol and ipratropium nebulized treatment Completed CPAP trial 03/04. Patient not alert 03/09 CPAP trial failed, low tidal volumes. GI Transaminitis History of cholecystectomy Downtrending Liver ultrasound shows fatty infiltration of a normal-sized liver. Right pleural effusion. /KIDNEY ESRD on hemodialysis with [facility]-Saturday//Saturday Bilateral small atrophic kidneys Hyperkalemia Nephrology consulted-recommended fluid restriction, Epogen 02066 IV post HD. Continue HD Lokelma t.i.d. starting 03/02 Dialysis 03/11 ENDO Diabetes mellitus type 2-hemoglobin A1c 6.8 On ISS METABOLIC Anion gap metabolic acidosis secondary to lactic acidosis Morbid obesity ID Septic shock secondary to superimposed bacterial pneumonia on influenza a infection Blood cultures negative preliminary Respiratory g stain shows Gram-positive cocci in chains Continue IV vancomycin 03/01 till 03/09, restarted 03/11 Continue meropenem starting 03/02 Urine culture pending HEM-ONCO Thrombocytopenia Monitor LINES Intubated 03/01 Left subclavian CVC placed 03/01 DRIPS Versed 00 Fentanyl 0 Levophed 30 Vasopressin 0.03 Amiodarone 0.5 Epinephrine 6 NUTRITION: Nepro started 03/03 30 mL per hour DVT: On hold given hematuria and low platelets Goals of care/advance care planning; modified DNR; discussed on 03/03 with the daughter over the phone call for 24 minutes. PUD prophylaxis: Pantoprazole 40 mg IV daily DVT prophylaxis: Enoxaparin 90 mg sc daily Plan discussed with daughter Dasia over the phone call - [phone] in which all questions have been answered Critical care time including review of the case, discussing with the patient's family and nurses excluding procedures: 83 minutes Case discussed with Dr. Chen. Status post cardiac arrest. On 4 pressors, off sedation. Restarted IV vancomycin. Poor prognosis. Daughter at the bedside. Plan discussed with: Patient, Daughter (At the bedside) My Orders My Orders Orders - HUE SANDOVAL Procedure Category Date Status Time Abg W/ Co-Ox RT 03/11/24 Logged 04:00 Sodium Chl 0.9% PHA 03/11/24 In Process (Ns... 06:45 Sodium Chl 0.9% PHA 03/11/24 In Process (So... W/Vasopressin 06:45 Abg W/ Co-Ox RT 03/11/24 Logged 07:17 Ventilator Orders RT 03/11/24 Transmitted 07:35 Phenylephrine Iv PHA 03/11/24 In Process (Phenylephrine/Ns) 08:45 Epinephrine Hcl PHA 03/11/24 In Process 09:30 Sodium Chl 0.9% PHA 03/11/24 In Process (Ns... 11:00 Dopamine 1600mcg/Ml PHA 03/11/24 In Process D5W 12:30 Dietary Evaluation Review Comments: TF Nepro 30ml/hr provides Pt's needs 100% for protein, 127% of energy. advanc eto Renal standard diet when pt is off vent and pass speech eval. Expected Outcomes/Goals: diet to advance Date of Service: Mar 11, 2024 Billing Provider: KATIANA CHEN MD Common Visit Codes: 22508-FKWJTDCK CARE 30-74 MIN, 97532-LZEVVKIL CARE-EACH +30MIN HUE SANDOVAL Mar 11, 2024 14:40 KATIANA CHEN MD Mar 12, 2024 12:34
[2024-03-11] MEDS: DOPamine 1600MCG/ML D5W 250 ML IV SCH (15:31)
--- NOTE | 2024-03-11 16:14 | DVHPN2 ---
Progress Note Date Seen: Mar 11, 2024 Medical Necessity Reason Pt with a Central, PICC or Fol: Yes The following are medically ne: Central Line, Kaur Catheter Reason for kaur catheter: Strict I&O Subjective Patient reports: Other (Events noted) Review of Systems: Deferred Objective vital signs Vital Sign Date Time Temp Pulse Resp B/P (MAP) Pulse Ox O2 Delivery O2 Flow Rate FiO2 03/11/24 15:31 97/16 03/11/24 15:27 89 30 93 30 03/11/24 08:00 Mechanical Ventilator+ 03/11/24 07:55 209.7 Total Intake and Output 03/10/24 03/10/24 03/11/24 15:00 23:00 07:00 Intake Total 148.7215 ml 441.125 ml 1580.416 ml Output Total 0 ml 0 ml 10 ml Balance 148.7215 ml 441.125 ml 1570.416 ml medications Current Medications Medications Dose Ordered Sig/Ariela Route Start Time Stop Time Status Last Admin Dose Admin Midazolam HCl 50 ml @ 1 mls/hr Q24H IV 03/01/24 06:00 03/04/24 05:55 2 MLS/HR Diagnostic Test (Pha) 1 strip Q6HR 03/01/24 12:00 03/11/24 15:32 1 STRIP Insulin Human Regular Q6HR SC 03/01/24 12:00 03/10/24 18:32 2 UNITS Dextrose 50 ml UD PRN IV 03/01/24 08:00 03/11/24 14:23 50 ML Meropenem 50 ml @ 17 mls/hr DAILY IV 03/02/24 10:00 03/11/24 11:22 17 MLS/HR Ipratropium [place] 0.5 mg Q6HPRN PRN NEB 03/02/24 00:00 03/10/24 00:17 0.5 MG Levalbuterol HCl 0.625 mg Q6HPRN PRN NEB 03/02/24 06:00 03/10/24 00:17 0.625 MG Pantoprazole Sodium 40 mg DAILY IV 03/03/24 10:00 03/11/24 11:22 40 MG Enteral Nutritional Formula 1,000 ml 30ML/HR GT 03/04/24 15:30 03/08/24 12:49 1,000 ML Norepinephrine Bitartrate 32 mg/ Sodium Chloride 250 ml @ 0.938 mls/ hr Q24H IV 03/11/24 06:45 Vasopressin 20 units/Sodium Chloride 100 ml @ 9 mls/hr Q11H7M IV 03/11/24 06:45 03/11/24 07:33 9 MLS/HR Epinephrine HCl 250 ml @ 7.5 mls/hr Q24H IV 03/11/24 09:30 03/11/24 15:31 37.5 MLS/HR Vancomycin HCl 0 ml @ 0 mls/hr UD IV 03/11/24 10:00 Albumin Human 100 ml @ 100 mls/hr PRN PRN IV 03/11/24 10:45 03/11/24 12:05 100 MLS/HR Phenylephrine HCl 80 mg/Sodium Chloride 250 ml @ 7.5 mls/hr Q24H IV 03/11/24 11:00 Dopamine HCl/ Dextrose 250 ml @ 16.763 mls/ hr [id number] IV 03/11/24 12:30 03/11/24 15:31 16.763 MLS/HR Phenylephrine HCl 80 mg/Sodium Chloride 250 ml @ 7.5 mls/hr Q24H IV 03/11/24 08:00 Examination: GENERAL:Abnormal, LUNGS:Abnormal, MSK:Abnormal, NEURO:Abnormal laboratory and microbiology Laboratory Tests 03/11/24 12:53 03/11/24 05:10 03/11/24 03:05 Test 03/11/24 05:10 Range/Units Serum Glucose 125 H 74-106 mg/dL Microbiology Date/Time Source Procedure Growth Status 03/10/24 10:22 Trachea Gram Stain - Final Resulted 03/10/24 10:22 Trachea Respiratory Culture - Preliminary Resulted 03/05/24 04:00 Urine - [place] Urine Culture - Final Complete 03/02/24 19:24 Blood Blood Culture - Final NO GROWTH AFTER 5 DAYS OF INCUBATION. Complete 03/01/24 00:55 Sputum Gram Stain - Final Complete 03/01/24 00:55 Sputum Respiratory Culture - Final Complete Problem List/Assessment/Plan Problem List/Assessment/Plan ESRD on dialysis Acute hypoxemic respiratory failure, intubated on ventilator Pneumonia/influenza + Hyperkalemia Shock HTN Sepsis Transaminitis Hyperphosphatemia recs Patient had coded last night HD today repeating given hyperkalemia intubated On multiple vasopressors Do not check potassium within 4 hours of dialysis Grave prognosis Plan discussed with: Other My Orders My Orders Orders - JEANNE JEONG MD Procedure Category Date Status Time Hemodialysis Orders ORDERS 03/11/24 Transmitted 09:15 Dialysis Nursing JOHANA 03/11/24 In Process Message 09:15 Document Fluid Input JOHANA 03/11/24 In Process And Outpu 09:15 Hemodialysis Orders ORDERS 03/11/24 Transmitted 10:39 Albumin 25% ([place]) PHA 03/11/24 In Process 10:45 Dietary Evaluation Review Comments: TF Nepro 30ml/hr provides Pt's needs 100% for protein, 127% of energy. advanc eto Renal standard diet when pt is off vent and pass speech eval. Expected Outcomes/Goals: diet to advance JEANNE JEONG MD Mar 11, 2024 16:14
[2024-03-11] MEDS: HYDROCORTISONE SOD SUCC 100 MG/2ML INJ VIAL IV ONE (20:26)
[2024-03-11] MEDS: HYDROCORTISONE SOD SUCC 100 MG/2ML INJ VIAL IV SCH (21:27)
[2024-03-11] MEDS: DEXTROSE 50% SYRINGE 50 ML IV ONE (23:43)
[2024-03-11] MEDS: SODIUM BICARB 8.4% 50Meq/50ml SYR INJ ONE (23:43)
[2024-03-12] VITALS (10 sets, daily range): BP systolic 82–103; BP diastolic 42–54; PULSE 0–95; RESP 14–37; TEMP 99; O2SAT 0–91
[2024-03-12] MEDS: SODIUM BICARB 8.4% 50Meq/50ml SYR Vial IV ONE ×3 (00:24→01:47)
[2024-03-12] MEDS: DEXTROSE 10% 1,000 ML IV ONE (00:24)
[2024-03-12 01:01] LABS: Chloride 102 mmol/L (98-107)
[2024-03-12 01:02] LABS: Anion Gap 26 (5-15); Calcium 9.8 mg/dL (8.7-10.4)
[2024-03-12 01:07] LABS: BUN/Creatinine Ratio 7.4 (10.0-20.0)
[2024-03-12 01:09] LABS: Blood Urea Nitrogen 40 mg/dL (9-23); Carbon Dioxide 17 mmol/L (20-31); Glucose 174 mg/dL (74-106); Sodium 145 mmol/L (136-145)
[2024-03-12 01:10] LABS: Potassium 6.4 mmol/L (3.5-5.1)
[2024-03-12] MEDS ORDERED: InsuLIN REG 1unit/0.01ml Soln (100units/ml) IV ONE (01:30)
[2024-03-12] MEDS: DEXTROSE (50%) 50ML SYRG IV ONE (01:46)
[2024-03-12] MEDS: ALBUTEROL SULF 2.5 MG/0.5ML(0.5%) NEB SOLN NEB ONE (01:46)
[2024-03-12] MEDS: CALCIUM GLUC 1,000mg/50ml-NS 50 ML IV ONE (01:47)
--- NOTE | 2024-03-12 19:58 | DVHDS2 ---
Summary Date of Admission Mar 01, 2024 at 07:47 Date and Time of Expiration: Mar 12, 2024 02:01 Labs/Diagnostic Data: Laboratory Results Test 03/12/24 01:05 03/12/24 00:37 03/11/24 22:11 03/11/24 06:36 POC Glucose 56 mg/dl (70-106) Sodium Level 145 mmol/L (136-145) Potassium Level 6.4 mmol/L (3.5-5.1) Chloride Level 102 mmol/L (98-107) Carbon Dioxide Level 17 mmol/L (20-31) Anion Gap 26 (5-15) Blood Urea Nitrogen 40 mg/dL (9-23) Creatinine 5.40 mg/dL (0.550-1.02) Glomerular Filtration Rate Calc 8 mL/min (>90) BUN/Creatinine Ratio 7.4 (10.0-20.0) Serum Glucose 174 mg/dL (74-106) Calcium Level 9.8 mg/dL (8.7-10.4) Blood Gas Specimen Type Arterial Blood Gas Sample Site Right radial Blood Gas Patient Temperature 37.0 Arterial Blood Date Drawn [id number] Arterial Blood pH 7.097 (7.350-7.450) Arterial Blood Partial Pressure CO2 31.6 mmHg (32.0-45.0) Arterial Blood Partial Pressure O2 73.7 mmHg (83.0-108.0) Arterial Blood HCO3 9.5 mmol/L (21.0-28.0) Arterial Blood Oxygen Saturation 87.9 % (94.0-98.0) Arterial Blood Base Excess -19.0 mmol/L (-2.0-3.0) Arterial Blood Oxyhemoglobin 87.7 % (94.0-98.0) Arterial Blood Carboxyhemoglobin 0.2 % (0.5-1.5) Arterial Blood Methemoglobin 0.0 % (0.0-1.5) Niraj Test Modified Blood Gas Total Hemoglobin 12.50 g/dL (12.0-16.0) Blood Gas Set Respiration Rate 20.0 Blood Gas Modality Vent - ac Blood Gas Spontaneous Rate 34 FiO2 % 100.0 Blood Gas Tidal Volume 400.0 Blood Gas Spontaneous Tidal Volume 408 Blood Gas PEEP or CPAP 8.0 Specimen Drawn By Emily de rt Blood Gas Critical Value Read Back Yes Blood Gas Notified Whom Girma quinones md Blood Gas Notified Time [id number] Blood Gas Notified By Emily de rt Blood Gas Inspiratory Pressure 35.0 Bl Gas Inspiratory/Expiratory Ratio 1:1.3 Test 03/11/24 05:10 03/11/24 03:05 03/09/24 19:35 03/08/24 03:30 Magnesium Level 2.6 mg/dL (1.6-2.6) Total Bilirubin 1.8 mg/dL (0.2-1.0) Aspartate Amino Transferase (AST) 2892 U/L (13-40) Alanine Aminotransferase (ALT) 513 U/L (7-40) Alkaline Phosphatase 215 U/L (46-116) Creatine Kinase 152 U/L (34-145) Total Protein 6.6 g/dL (5.7-8.2) Albumin 3.6 g/dL (3.2-4.8) White Blood Count 8.5 10^3/uL (4.4-10.8) Red Blood Count 4.14 10^6/uL (4.0-5.20) Hemoglobin 13.0 g/dL (12.2-16.2) Hematocrit 40.6 % (36.0-46.0) Mean Corpuscular Volume 98.1 fL (80.0-100.0) Mean Corpuscular Hemoglobin 31.4 pg (28.0-32.0) Mean Corpuscular Hemoglobin Concent 32.0 g/dL (32.0-36.0) Red Cell Distribution Width 14.6 % (11.8-14.3) Platelet Count 120 10^3/uL (140-450) Mean Platelet Volume 10.9 fL (6.9-10.8) Neutrophils (%) (Auto) 81.0 % (37.0-80.0) Lymphocytes (%) (Auto) 10.2 % (10.0-50.0) Monocytes (%) (Auto) 7.7 % (0.0-12.0) Eosinophils (%) (Auto) 0.3 % (0.0-7.0) Basophils (%) (Auto) 0.8 % (0.0-2.0) Neutrophils # (Auto) 6.9 10 ^3/uL (1.6-8.6) Lymphocytes # (Auto) 0.9 10 ^3/uL (0.4-5.4) Monocytes # (Auto) 0.7 10 ^3/uL (0-1.3) Eosinophils # (Auto) 0 10 ^3/uL (0-0.8) Basophils # (Auto) 0.1 10 ^3/uL (0-0.2) Nucleated Red Blood Cells 0.1 % Influenza Type A Antigen Positive (Negative) Influenza Type B Antigen Negative (Negative) Random Vancomycin Level 18.1 ug/mL (5-10) Test 03/07/24 03:20 03/05/24 08:43 03/05/24 04:00 03/03/24 08:03 Direct Bilirubin 0.4 mg/dL (<0.3) Lactic Acid Level 1.7 mmol/L (0.4-2.0) Urine Color Colorless (Yellow) Urine Clarity Ex.turbid (Clear) Urine pH 7.5 (5.0-9.0) Urine Specific [place] 1.006 (1.001-1.035) Urine Protein 2+ (Negative) Urine Ketones Negative (Negative) Urine Blood 3+ /uL (Negative) Urine Nitrite Negative (Negative) Urine Bilirubin Negative (Negative) Urine Urobilinogen Normal mg/dL (Negative) Urine Leukocyte Esterase 2+ /uL (Negative) Urine RBC 2937 /hpf (0 - 4) Urine WBC 62 /hpf (0 - 5) Urine Squamous Epithelial Cells None seen /hpf (<5) Urine Bacteria Few /hpf (None Seen) Urine Glucose Normal mg/dL (Normal) Vitamin B12 Level > 4000 pg/mL (211-911) Thyroid Stimulating Hormone (TSH) 1.37 uIU/mL (0.55-4.78) Test 03/02/24 17:50 03/02/24 12:54 03/02/24 04:44 03/01/24 13:20 Urine Opiates Screen Neg (NEGATIVE) Urine Fentanyl Screen Neg (NEGATIVE) Urine Barbiturates Screen Neg (NEGATIVE) Urine Phencyclidine Screen Neg (NEGATIVE) Urine Amphetamines Screen Neg (NEGATIVE) Urine Benzodiazepines Screen Pos (NEGATIVE) Urine Cocaine Screen Neg (NEGATIVE) Urine Cannabinoids Screen Neg (NEGATIVE) Vitamin D 25-Hydroxy 36.1 ng/mL (30.0-100) Hepatitis B Surface Antigen Negative (Negative) Phosphorus Level 5.0 mg/dL (2.4-5.1) Parathyroid Hormone (Intact) 506.2 pg/mL (18.4-80.1) SARS-CoV-2 Antigen (Rapid) Negative (NEGATIVE) Test 03/01/24 03:30 03/01/24 00:25 Hemoglobin A1c 6.8 % A1C (<5.7) Troponin I High Sensitivity 3257 ng/L (</=34) Triglycerides Level 171 mg/dL (< 150) Cholesterol Level 130 mg/dL (< 200) LDL Cholesterol 46 mg/dL (< 100) HDL Cholesterol 51 mg/dL (40-59) Prothrombin Time 16.1 sec (9.3-11.8) Prothrombin Time INR 1.57 (0.9-1.15) B-Type Natriuretic Peptide 1404.90 pg/mL (0-100) Other Laboratory Tests 03/12/24 00:37 03/11/24 03:05 Brief Hx & Hospital Course: This is a 74-year-old female patient with PMHx of diabetes mellitus type 2, ESRD on hemodialysis with [facility] Saturday//Saturday - makes urine, atrial fibrillation on , hypertension, dyslipidemia, obesity who presented to the ER with a chief complaint of shortness of breath and flu-like symptoms. Patient lives with her daughter who reports that patient suddenly got sick on 03/01 and she has productive cough with phlegm and was choking on her phlegm, associated with shortness of breaths, nausea vomiting and diarrhea. Later the patient could not recognize and was altered therefore EMS was called and patient was found to be hypotensive and bradycardic into 40s. She received 1 dose of atropine EN route. Initially EKG at our facility showed AFib + prolonged QTC. Cardiology was consulted who recommended holding anticoagulation given the low platelet count and holding off beta ayleen as the patient required pressors. Patient was intubated on 03/01 and ABG shows anion gap metabolic acidosis with respiratory acidosis. Base deficit was-14. She was diagnosed with influenza a infection. Also started on oseltamivir 30 mg post hemodialysis, Lokelma, amiodarone. An echo was done which showed LVEF 60%, RV in LA was enlarged. Moderate TR. She received IV vancomycin and meropenem. Preliminary blood cultures are negative. Respiratory Gram stain shows Gram-positive cocci in chains. Head CT was done which was unremarkable. They were ultrasound shows fatty liver and right-sided pleural effusion. Previously admitted at this hospital with a complaint of fall in August 2023 Past surgical history: Neck surgery 4 years back Home medications unknown During the hospitalization, patient was intubated on 03/01 due to ALOC secondary to toxic versus metabolic and cough. And a left subclavian CVC on was placed. Head CT was completed which was negative. She was also diagnosed with septic shock requiring pressor support secondary to superimposed bacterial pneumonia influenza infection. She was started on amiodarone for the AFib but patient was bradycardic and amiodarone was discontinued. Blood cultures were negative preliminary, respiratory g stain showed Gram-positive cocci in chain inpatient started on IV vancomycin and meropenem. She also received hemodialysis and scheduled Lokelnh for the hyperkalemia. Patient was not alert during the CPAP trials and was pulling low tidal volumes. Therefore MRI brain was done which was negative. She underwent cardiac arrest on 03/11, and received epinephrine. IV amiodarone was restarted. Following that, patient required multiple pressors with norepinephrine, epinephrine, vasopressin, phenylephrine and dopamine and she was saturating in 70s on 100% FiO2. Patient's daughter was contacted and patient was made DNR. She underwent V-tach/VFib on 03/12, and experienced cardiac arrest. Patient on 03/12. Consults/Reason for consult ORDERING PHYSICIAN: HUE SANDOVAL RESIDENT PROCEDURE(s): MBHL - BRAIN HEAD WO CONTRAST REASON: ALOC ORDER NUMBER(s): [id number], ACCESSION NUMBER(s): [id number] EXAM: MRI BRAIN HEAD WO CONTRAST HISTORY: ALOC COMPARISON: None TECHNIQUE: MRI was performed utilizing multiple appropriate imaging planes and pulse sequences. FINDINGS: SUPRATENTORIAL REGION: No evidence for acute ischemia or intracranial hemorrhage. POSTERIOR FOSSA: Unremarkable. BRAINSTEM: Unremarkable. SELLAR/SUPRASELLAR REGION: Unremarkable. VENTRICLES, CISTERNS, SULCI: Age-appropriate. ORBITS: Unremarkable. PARANASAL SINUSES: Mild diffuse sinus mucosal thickening noted. Trace fluid in the sphenoid sinuses. MASTOID AIR CELLS: Complete fluid opacification of the bilateral mastoid air cells noted. VASCULATURE: Unremarkable. BONES/ SOFT TISSUES: Unremarkable. OTHER: None. IMPRESSION: 1. No acute intracranial process identified. 2. Large bilateral mastoid effusions. 3. Acute paranasal sinusitis with air-fluid levels noted in sphenoid sinuses. ATED BY: CARLY LION MD DICTATED DATE/TIME: 03/10/24954 SIGNED BY: CARLY LION MD SIGNED DATE/TIME: 03/10/24954 CC: ORDERING PHYSICIAN: KATIANA CHEN MD PROCEDURE(s): LIVUS - LIVER REASON: elevated lft ORDER NUMBER(s): [id number], ACCESSION NUMBER(s): [id number] INDICATION: elevated lft TECHNIQUE: Multiple real-time sonographic images of the abdomen were obtained. COMPARISON: None FINDINGS: Liver measures 13.7 cm. Liver appears echogenic compatible with fatty infiltration. No masses. No dilated intrahepatic biliary ductal dilatation. Pleural effusions seen in the right lower chest. Gallbladder surgically absent versus contracted Right kidney measures 8.5 and left kidney measuring 7.6 cm in craniocaudal dimensions. Pancreas not well seen secondary to overlying bowel gas. No abnormalities the inferior vena cava. Impression: Fatty infiltration of a normal sized liver Right pleural effusion Small probable atrophic kidneys Pancreas not well visualized 1. ATED BY: ARMANDO GRIMM MD DICTATED DATE/TIME: 03/02/241625 SIGNED BY: ARMANDO GRIMM MD SIGNED DATE/TIME: 03/02/241625 CC: ORDERING PHYSICIAN: JATIN PETERSEN REFRACTORY TILE HELPER PROCEDURE(s): HWOCT - HEAD WITHOUT CONTRAST REASON: ALOC ORDER NUMBER(s): [id number], ACCESSION NUMBER(s): [id number] EXAM: CT HEAD WITHOUT CONTRAST INDICATION: ALOC TECHNIQUE: CT of the head without intravenous contrast. Coronal and sagittal reformatted images are submitted. Radiation Dose : 1. Head: CT Dose: CTDI volume is 60.67 mGy. Dose-length product is 1074.14 mGy*cm The dose indicators for CT are the volume Computed Tomography (CT) Dose Index (CTDIvol) and the Dose Length Product (DLP), and are measured in units of mGy and mGy-cm, respectively. These indicators are not patient dose, but values generated from the CT scanner acquisition factors. The report includes radiation exposure data for exposures received during this examination. All CT scans at this medical facility are performed using dose modulation techniques as appropriate to a performed exam including the following: Automated exposure control was utilized; adjustment of the MA and/or KV according to patient size; and use of iterative reconstruction technique. COMPARISON: None FINDINGS: There is no evidence of acute intracranial hemorrhage, extra-axial collection, mass effect, midline shift, herniation or hydrocephalus. The ventricles, sulci and cisterns are age appropriate. The cardona-white differentiation is intact. The visualized paranasal sinuses and mastoid air cells are clear. No depressed calvarial fracture. The surrounding soft tissues are unremarkable. IMPRESSION: 1. No evidence of acute intracranial abnormality. ATED BY: FRANCISCO JAVIER JAY MD DICTATED DATE/TIME: 03/01/24957 Final Diagnosis/Problems List Altered level of consciousness due to toxic versus metabolic encephalopathy Acute hypoxic respiratory failure secondary to septic shock due to bacterial pneumonia superimposed on influenza infection Intubated and mechanically ventilated Status post cardiac arrest 03/11 Septic/ Cardiogenic shock requiring multiple pressors secondary to superimposed bacterial pneumonia on influenza a infection ESRD on hemodialysis with [facility]-Saturday//Saturday Hypertension Unspecified Atrial fibrillation on [id number] score 4, has bled score 2 Hyperkalemic emergency Diabetes mellitus type 2-hemoglobin A1c 6.8 Anion gap metabolic acidosis secondary to lactic acidosis Morbid obesity Thrombocytopenia Dyslipidemia Elevated troponins likely NSTEMI type 2 Bradycardia Moderate TR Transaminitis History of cholecystectomy Bilateral small atrophic kidneys Discharge Disposition: at Hospital HUE SANDOVAL RESIDENT Mar 12, 2024 19:58
== END 2024-03-12 07:45 | DRG 870 ==
LOC: ER 00:05 → EDBD 00:05 → TELE 07:47 → ICU WEST 03-06 03:51
PROVIDERS: ADMIT Internal Medicine; ATTEND Emergency Medicine
PROC: 5A1955Z Respiratory Ventilation, Greater than 96 Consecutive Hours (ICD-10-PCS; principal; 2024-03-01)
PROC: 0BH17EZ Insertion of Endotracheal Airway into Trachea, Via Natural or Artificial Opening (ICD-10-PCS; 2024-03-01)
PROC: 02HV33Z Insertion of Infusion Device into Superior Vena Cava, Percutaneous Approach (ICD-10-PCS; 2024-03-01)
PROC: 5A1D70Z Performance of Urinary Filtration, Intermittent, Less than 6 Hours Per Day (ICD-10-PCS; 2024-03-01)
PROC: 5A1D70Z Performance of Urinary Filtration, Intermittent, Less than 6 Hours Per Day (ICD-10-PCS; 2024-03-03)
PROC: 5A1D70Z Performance of Urinary Filtration, Intermittent, Less than 6 Hours Per Day (ICD-10-PCS; 2024-03-05)
PROC: 5A1D70Z Performance of Urinary Filtration, Intermittent, Less than 6 Hours Per Day (ICD-10-PCS; 2024-03-07)
PROC: 5A1D70Z Performance of Urinary Filtration, Intermittent, Less than 6 Hours Per Day (ICD-10-PCS; 2024-03-10)
PROC: 5A12012 Performance of Cardiac Output, Single, Manual (ICD-10-PCS; 2024-03-11)
PROC: 5A1D70Z Performance of Urinary Filtration, Intermittent, Less than 6 Hours Per Day (ICD-10-PCS; 2024-03-11)
DX: A41.89 Other specified sepsis (principal); I21.A1 Myocardial infarction type 2; J96.01 Acute respiratory failure with hypoxia; N18.6 End stage renal disease; R65.21 Severe sepsis with septic shock; J15.9 Unspecified bacterial pneumonia; J10.01 Influenza due to other identified influenza virus with the same other identified influenza virus pneumonia; G92.8 Other toxic encephalopathy; E87.20 Acidosis, unspecified; I12.0 Hypertensive chronic kidney disease with stage 5 chronic kidney disease or end stage renal disease; Z68.41 Body mass index [BMI] 40.0-44.9, adult; G93.1 Anoxic brain damage, not elsewhere classified; E87.4 Mixed disorder of acid-base balance; J90 Pleural effusion, not elsewhere classified; R57.0 Cardiogenic shock; Z66 Do not resuscitate; E78.5 Hyperlipidemia, unspecified; Z20.822 Contact with and (suspected) exposure to COVID-19; D64.9 Anemia, unspecified; I46.9 Cardiac arrest, cause unspecified; D69.6 Thrombocytopenia, unspecified; E87.5 Hyperkalemia; E11.22 Type 2 diabetes mellitus with diabetic chronic kidney disease; K76.0 Fatty (change of) liver, not elsewhere classified; E66.01 Morbid (severe) obesity due to excess calories; I45.10 Unspecified right bundle-branch block; I48.91 Unspecified atrial fibrillation; Z99.2 Dependence on renal dialysis; Z79.01 Long term (current) use of anticoagulants; Z86.74 Personal history of sudden cardiac arrest; Z90.49 Acquired absence of other specified parts of digestive tract; Z79.84 Long term (current) use of oral hypoglycemic drugs; Z91.81 History of falling
CPT/HCPCS: 31500; 36415; 36556; 36600; 70450; 70551; 71045; 76705; 80048; 80053; 80061; 80076; 80202; 80307; 81001; 82306; 82550; 82607; 82805; 82962; 83036; 83605; 83735; 83880; 83970; 84100; 84132; 84443; 84484; 85025; 85610; 87040; 87070; 87081; 87086; 87205; 87340; 87426; 87804; 90935; 92950; 93005; 93306; 94002; 94003; 94640; 99291; G0378; G9035; J0171; J1815; J2185; J2470; J2543; J2704; J3480; J7060; P9047